=== PATIENT | male | born 1990 | race Caucasian/White ===

== ENCOUNTER 2020-06-15 16:48 | Emergency (ER) | payer MEDICAID, SELFPAY ==
[2020-06-15 17:00] VITALS: BP 116/68; PULSE 86; RESP 14; TEMP 37.2; O2SAT 98; BMI 19.3
--- NOTE | 2020-06-15 19:08 | ED.EYEPROB ---
HPI - Eye Problem General Chief complaint: Eye Problems Stated complaint: eye infection Time Seen by Provider: 06/15/20 19:08 Source: patient Mode of arrival: ambulatory Limitations: no limitations History of Present Illness HPI Narrative: left upper eyelid swelling for past 2 days. She has Onset (ago): day(s) Onset description: gradual Duration: constant Location: left eye ( upper lid) Severity: mild Treatments Prior to Arrival: none Related Data Previous Rx's Medication Instructions Recorded doxycycline monohydrate 100 mg PO BID 7 Days #14 cap 06/15/20 erythromycin 0.5 inch OPHTHALMIC (EYE) Q8H #3.5 06/15/20 g Allergies Allergy/AdvReac Type Severity Reaction Status Date / Time amoxicillin [AMOXICILLIN] Allergy Intermediate HIVES Unverified 04/14/20 16:53 clindamycin [CLINDAMYCIN] Allergy Mild RASH Unverified 04/14/20 16:53 Penicillins [PENICILLINS] Allergy Unknown HIVES Unverified 04/14/20 16:53 shellfish derived Allergy Hives Verified 06/15/20 18:21 shrimp Allergy Hives Verified 06/15/20 18:21 Review of Systems Review of Systems: Constitutional: No Weight loss, No Fever, No Chills, No Night Sweats, No Fatigue, No Malaise ENT/Mouth: No Hearing loss, No Ear Pain, No Nasal Congestion, No Sinus Pain, No Hoarseness, No sore throat, No Rhinorrhea, No Swallowing Difficulty Eyes: No Eye Pain, + left upper Swelling, No Redness, No Foreign Body, No Discharge, No Vision Changes Cardiovascular: No Chest Pain, No SOB, No Dyspnea on Exertion, No Orthopnea, No Edema, No Palpitations Respiratory: No Cough, No Sputum, No Wheezing, No Smoke Exposure, No Dyspnea Gastrointestinal: No Nausea, No Vomiting, No Diarrhea, No Constipation, No abdominal Pain, No Hematochezia, No Melena Musculoskeletal: No joint pain, No Myalgias, No Joint Swelling Skin: No Skin Lesions, No rash Neuro: No Weakness, No Numbness, No Paresthesias, No Loss of Consciousness, No Dizziness, No Headache Psych: No Anxiety/Panic, No Depression Heme/Lymph: No Bruising, No Bleeding,No Lymphadenopathy Endocrine: No Polyuria, No Polydipsia, No Temperature Intolerance Yes all other systems are reviewed and are negative [facility] Past Medical History Attestation statement: The following information was validated with the patient. Medical History (Updated 06/15/20 @ 19:11 by Eric Griffith NP) No known health problems Social History Social History Alcohol intake: never Smoking Status: Current every day smoker Substance Use Type: Marijuana Advance Directives: No Advance Directives Information Provided: Yes Physical Exam Vital Signs: Vital Signs: Last Vital Signs Temp 99 F 06/15/20 17:00 Pulse 86 06/15/20 17:00 Resp 14 06/15/20 17:00 BP 116/68 06/15/20 17:00 Pulse Ox 98 06/15/20 17:00 Body Mass Index 19.3 Reviewed Const: General: cooperative, healthy appearing, comfortable, no acute distress, well developed, alert and awake HENMT: Head: Yes normal to inspection Ears: hearing grossly normal bilaterally Eyes: General: appearance normal, both eyes and all related structures Visual [place]: normal visual gamboa by confrontation Eyelids: Yes eyelid abnormality ( left upper lid with small external stye. Slight erythema) Conjunctivae: conjunctivae normal Sclerae: sclerae normal Corneas: corneas normal Chest: Chest palpation & inspection: normal inspection of the chest and normal palpation of entire chest wall Resp: Effort & Inspection: normal respiratory effort, no audible wheezes, no cough and no respiratory distress Cardio: Jugular venous distension: no JVD Palpation: normal PMI Rate: regular rate Heart sounds: S1 normal heart sound present and S2 normal heart sound present Skin: General skin exam: no rashes or lesions noted, elasticity normal and turgor normal Wounds: no wounds Nails: normal Neuro: General: normal sensation to monofilament Psych: Appearance: grossly normal and well kempt Discharge Plan Discharge Clinical Impression: External hordeolum Patient Disposition: Home, Self-Care Instructions: Steve (ED) Prescriptions: New erythromycin 5 mg/gram (0.5 %) ointment 0.5 inch ophthalmic (eye) Q8H Qty: 3.5 RF: 1 doxycycline monohydrate 100 mg capsule 100 mg PO BID 7 Days Qty: 14 RF: 0 Referrals: Physician,Unknown [Primary Care Provider] - 3 days
== END 2020-06-15 19:50 | disposition home or self-care (01) ==
PROVIDERS: Emergency Provider Emergency Medicine
DX: H00.019 Hordeolum externum unspecified eye, unspecified eyelid (principal); F17.200 Nicotine dependence, unspecified, uncomplicated; Z71.6 Tobacco abuse counseling; F12.90 Cannabis use, unspecified, uncomplicated; Z79.899 Other long term (current) drug therapy
CPT/HCPCS: 99283

== ENCOUNTER 2021-05-24 14:12 | Outpatient (REF) | payer MEDICAID, SELFPAY ==
[2021-05-24 14:51] LABS: Basophils Percent Auto 0.6 % (0-2); Eosinophils Percent Auto 1.2 % (0-4); Hematocrit 34.8 % (42-52); Hemoglobin 11.7 g/dl (14.0-18.0); Imm Gran Abs Auto 0.02 X10*3/uL (0.00-0.03); Imm Gran Pct Auto 1.2 % (0.0-0.4); Lymphocytes Absolute Auto 0.5 X10*3/uL (1.2-4.9); Lymphocytes Percent Auto 29.2 % (20-40); MANUAL DIFF FLAG SCAN; Mean Corpuscular HGB Conc 33.6 g/dl (31.0-36.0); Mean Corpuscular Volume 92.1 fL (80-98); Mean Platelet Volume 12.1 fL (9.4-12.4); Monocytes Absolute Auto 0.2 X10*3/uL (0.1-1.2); Monocytes Percent Auto 12.3 % (2-11); Neutrophils Percent Auto 55.5 % (45-73); Red Blood Count 3.78 X10*6/uL (4.60-5.80); Red Cell Distribution Width 13.2 % (11.0-16.0); SCAN SMEAR FLAG 1
[2021-05-24 15:04] LABS: Platelet Count 60 X10*3/uL (160-400); White Blood Count 1.7 X10*3/uL (4.8-10.8)
[2021-05-24 15:15] LABS: Alanine Aminotransferase 10 U/L (0-40); Albumin Level 3.8 g/dL (3.5-5.0); Alkaline Phosphatase 39 U/L (39-117); Anion Gap 10 (12-20); Aspartate Amino Transferase 25 U/L (5-37); Bilirubin Total 0.6 mg/dL (0.0-1.0); Blood Urea Nitrogen 11 mg/dL (9-16); Calcium 8.8 mg/dL (8.4-10.2); Carbon Dioxide 28 mmol/L (22-29); Chloride 105 mmol/L (96-108); Cholesterol 136 mg/dL; Estimated Glomerular Filt Rate > 60; Glucose Random 85 mg/dL (60-115); HDL Cholesterol 27 mg/dL; LDL Cholesterol Calculated 87 mg/dl; Potassium 4.1 mmol/L (3.3-5.1); Sodium 139 mmol/L (135-145); Total Protein 8.1 g/dL (6.5-8.0); Triglycerides 111 mg/dL
[2021-05-24 15:21] LABS: SLIDE REVIEW VERIFIED
== END 2021-05-24 14:13 | disposition home or self-care (01) ==
LOC: HO.LAB 14:12
PROVIDERS: PCP Internal Medicine; Visit Provider Internal Medicine
DX: Z00.00 Encounter for general adult medical examination without abnormal findings (principal); B35.1 Tinea unguium; F21 Schizotypal disorder; M79.672 Pain in left foot; Z72.0 Tobacco use
CPT/HCPCS: 36415; 80053; 80061; 85025

== ENCOUNTER 2021-12-29 15:53 | Emergency (ER) | payer MEDICAID, SELFPAY ==
--- NOTE | ~2021-12-29 | XR_ITS ---
EXAMINATION: XR ANKLE, LEFT CLINICAL INFORMATION: Left ankle pain and swelling. COMPARISON: None TECHNIQUE: AP, lateral, and mortise views of the left ankle. An indicator arrow points to the lateral malleolus. FINDINGS: The bones and soft tissues are normal. No fracture. Alignment is anatomic. Joint spaces are maintained. No joint effusion. XR/XR ankle LT min 3V IMPRESSION: Unremarkable left ankle.
[2021-12-29 16:06] VITALS: BP 109/74; PULSE 93; RESP 16; O2SAT 98; BMI 16.1
[2021-12-29 16:30] LABS: COVID-19 Test Positive (Negative); IDNOW Serial# 55D5AD1C
--- NOTE | 2021-12-29 17:18 | ED.GENADULT ---
HPI - General Adult General Chief complaint: Extremity Injury, Lower Stated complaint: L leg pain Time Seen by Provider: 12/29/21 17:18 Source: patient Mode of arrival: ambulatory Limitations: no limitations History of Present Illness HPI narrative: 31 y/o male presents to the ER for evaluation of acute on chronic left hip and left ankle pain. He reports for the last few days his left ankle has been swollen with difficultly ambulating and causing him to have more pain in the hip. He cannot recall any injury or trauma. He reports a history of vascular calcifications and is not able to see the vascular team. No color changes of the extremity, weakness, tingling, or claudication. He also reports generalized fatigue, headache and body aches for the last couple of days as well. He is requesting a COVID test. MD complaint: left ankle pain Onset (ago): day(s) Location: left and lower extremity Radiation: non-radiation Severity: moderate Quality: aching Pain Consistency: intermittent Relieving factors: immobilization and rest Exacerbating factors: movement Associated symptoms: headaches, loss of appetite, malaise and weakness Treatments prior to arrival: none Related Data Previous Rx's Medication Instructions Recorded doxycycline monohydrate 100 mg 100 mg PO BID 7 Days #14 cap 06/15/20 capsule erythromycin 5 mg/gram (0.5 %) eye 0.5 inch OPHTHALMIC (EYE) Q8H #3.5 06/15/20 ointment g naproxen 500 mg tablet 500 mg PO BID PRN #20 tab 12/29/21 Allergies Allergy/AdvReac Type Severity Reaction Status Date / Time amoxicillin [AMOXICILLIN] Allergy Intermediate HIVES Unverified 04/14/20 16:53 clindamycin [CLINDAMYCIN] Allergy Mild RASH Unverified 04/14/20 16:53 Penicillins [PENICILLINS] Allergy Unknown HIVES Unverified 04/14/20 16:53 shellfish derived Allergy Hives Verified 06/15/20 18:21 shrimp Allergy Hives Verified 06/15/20 18:21 Review of Systems Review of Systems: Constitutional: No Fever, + Chills ENT/Mouth: No sore throat, No Rhinorrhea, No Swallowing Difficulty Cardiovascular: No Chest Pain, No SOB, No Orthopnea, No Edema Respiratory: No Cough, No Sputum, No Wheezing, No dyspnea Gastrointestinal: No Nausea, No Vomiting, No Diarrhea, No abdominal Pain Genitourinary: No Dysuria, No Urinary Frequency, No Hematuria Musculoskeletal: + joint pain, + Myalgias Skin: No Skin Lesions, No rash Neuro: + Weakness, No Numbness, No Dizziness, + Headache Psych: No Anxiety/Panic, No Depression Heme/Lymph: No Bruising, No Lymphadenopathy [facility] Past Medical History Medical History (Updated 12/29/21 @ 18:11 by CECILIA Lewis) No known health problems Social History Social History Alcohol intake: never Substance Use Type: Marijuana Advance Directives: No Advance Directives Information Provided: No Physical Exam ED Vital Signs: Vital Signs - 24 hr 12/29/21 16:06 Pulse Rate 93 Respiratory Rate 16 Blood Pressure 109/74 Pulse Oximetry 98 BMI result Body Mass Index 16.1 Appearance: Alert. Oriented X3. No acute distress. HEENT: normal inspection CVS: Normal heart rate and rhythm. Pulses normal. Respiratory: No respiratory distress. Lungs CTAB Skin: Skin warm and dry. Normal skin color. Normal skin turgor. No rashes. Extremities: left lateral ankle with mild swelling and ecchymosis distal to the lateral malleolus. foot is warm and well perfused with 2+ DP and PD pulses. normal ROM of the ankle with pain upon plantarflexsion. normal ROM and palpation of the left hip Neuro: Oriented X 3. Grossly normal, nonfocal. Course Course Course Narrative: 31 y/o male presenting with left ankle pain and swelling, denies trauma but ecchymosis noted. XR pending - he feels like something is broken. Also asked for COVID test which has been sent. VS are normal and lungs are clear. Reevaluation(s) Reevaluation #1: COVID positive. Only had 1 vaccine so far. Discussed symptomatic care and return precautions Reevaluation #2: XR normal. will treat for ankle sprain. stable for d/c. Medical Decision Making Lab Data Labs: Lab Results 12/29/21 Range/Units 16:12 COVID-19 (LUCIO) Positive A (Negative) COVID-19 Clin Com See Note Critical Care Time Critical Care Time Critical Care Time: No Discharge Plan Discharge Clinical Impression: COVID-19, Ankle sprain and strain Patient Disposition: Home, Self-Care Instructions: Covid-19 Viral Syndrome and Novel Coronavirus (ED) Hey/Ath, Ankle Sprain (DC) Additional Instructions: Your ankle x-ray today was normal. Rest your ankle and elevate your foot when possible. Recommend RANI wrap for support and compression. Use ice several times per day for the next 48 hours. You may bear weight as tolerated. If pain is too severe, use crutches until better. Take Motrin and/or Tylenol as needed for pain. You were found to be COVID-19 POSITIVE today. Your exam and oxygen levels were normal. Rest. Drink plenty of fluids. Do not go out in public for the next 10 days. Take over the counter cold/flu medications as needed for your symptoms. Take Tylenol and/or Motrin as needed for fevers and body aches. If you shortness of breath worsens , if you develop difficulty breathing or any other concerning symptom come back to the ER for further evaluation. Prescriptions: New naproxen 500 mg tablet 500 mg PO BID PRN (Reason: pain) Qty: 20 0RF No Action erythromycin 5 mg/gram (0.5 %) ointment 0.5 inch ophthalmic (eye) Q8H Qty: 3.5 1RF doxycycline monohydrate 100 mg capsule 100 mg PO BID 7 Days Qty: 14 0RF
== END 2021-12-29 18:15 | disposition home or self-care (01) ==
PROVIDERS: Emergency Provider Internal Medicine; PCP Internal Medicine
DX: U07.1 COVID-19 (principal); S93.402A Sprain of unspecified ligament of left ankle, initial encounter; S96.912A Strain of unspecified muscle and tendon at ankle and foot level, left foot, initial encounter; X58.XXXA Exposure to other specified factors, initial encounter; Y93.9 Activity, unspecified; Y92.9 Unspecified place or not applicable; Y99.9 Unspecified external cause status
CPT/HCPCS: 73610; 87635; 99283

== ENCOUNTER 2022-01-13 01:45 | Emergency (ER) | payer MEDICAID, SELFPAY ==
--- NOTE | ~2022-01-13 | XR_ITS ---
EXAMINATION: XR TIBIA AND FIBULA, RIGHT CLINICAL INFORMATION: Flank pain COMPARISON: None TECHNIQUE: AP and lateral views of the right tibia and fibula were obtained. FINDINGS: The bones and soft tissues are normal. No fracture. No osseous lesions. XR/XR tibia fibula RT 2V IMPRESSION: Normal right tibia and fibula.
[2022-01-13 01:52] VITALS: BP 114/79; PULSE 88; RESP 18; TEMP 37.4; O2SAT 99; BMI 16.1
[2022-01-13 05:08] VITALS: BP 128/92; PULSE 84; RESP 15; TEMP 37.3; O2SAT 100
[2022-01-13 06:26] VITALS: BP 130/91; PULSE 78; RESP 18; TEMP 37.2; O2SAT 100
--- NOTE | 2022-01-13 06:27 | ED_ITS ---
HPI - Extremity Problem General Chief complaint: Extremity Problem Stated complaint: R Leg pain Time Seen by Provider: 01/13/22 02:17 Source: patient Mode of arrival: EMS Limitations: no limitations History of Present Illness HPI Narrative: 31-year-old male who presents emergency department for evaluation of right lower extremity pain. The patient states that he developed pain in his right lower extremity yesterday that got progressively worse. He points to the proximal medial tibial area when asked to localize the pain. He states that the pain is a constant, burning sensation and his skin feels warm to the touch and it is painful when he presses on area. The pain is moderate to severe in intensity. He states he has had similar pain in the past secondary to his staph infection is required antibiotics in the past. He states that he has had subjective and chills but did not take his temperature. He states that he is feeling weak. He denied rhinorrhea, sore throat, chest pain, cough, shortness of breath, dyspnea on exertion, abdominal pain. He has been able to eat and drink without any difficulty. He denies any injury to his lower extremities. MD Complaint: extremity pain Onset (ago): day(s) (1) Pain Consistency: constant Location: right Severity scale (1-10): 6 Quality: burning Radiation: none Relieving factors: nothing Exacerbating factors: palpation Associated symptoms: fever and other (Chills, weakness, fatigue) Related Data Previous Rx's Medication Instructions Recorded doxycycline monohydrate 100 mg 100 mg PO BID 7 days #14 caps 06/15/20 capsule erythromycin 5 mg/gram (0.5 %) eye 0.5 inch ophthalmic (eye) Q8H #3.5 06/15/20 ointment grams naproxen 500 mg tablet 500 mg PO BID PRN pain #20 tabs 12/29/21 doxycycline hyclate 100 mg tablet 100 mg PO Q12H 7 days #14 tabs 01/13/22 Allergies Allergy/AdvReac Type Severity Reaction Status Date / Time amoxicillin [AMOXICILLIN] Allergy Intermediate HIVES Verified 01/13/22 01:51 clindamycin [CLINDAMYCIN] Allergy Mild RASH Verified 01/13/22 01:52 Penicillins [PENICILLINS] Allergy Unknown HIVES Verified 01/13/22 01:52 shellfish derived Allergy Hives Verified 06/15/20 18:21 shrimp Allergy Hives Verified 06/15/20 18:21 Review of Systems Review of Systems: Yes all other systems are reviewed and are negative [facility] Past Medical History [facility] Narrative: Past medical history: Staphylococcal cellulitis 3 years prior, right lower extremity. COVID-19 infection. Past surgical history: None. Social history: Patient smokes 1 pack of cigarettes per day times 15 years. Patient denies alcohol use. He states he smokes marijuana daily. Medical History (Updated 01/13/22 @ 07:43 by Adams Golden MD) No known health problems Social History Social History Alcohol intake: never Substance Use Type: Marijuana Advance Directives: No Physical Exam Vital Signs: Vital Signs: Last Vital Signs Temp 99 F 01/13/22 06:26 Pulse 78 01/13/22 06:26 Resp 18 01/13/22 06:26 BP 130/91 H 01/13/22 06:26 Pulse Ox 100 01/13/22 06:26 O2 Del Method 01/13/22 06:26 BMI result Body Mass Index 16.1 Const: General: cooperative and no acute distress Orientation/consciousness: oriented to person and oriented to place Limitations: no limitations HEENT: Head: Yes normal to inspection, Yes normocephalic and Yes atraumatic Ears: external ears normal General nose exam: Normal external nose present Face and sinus: Yes normal facial exam Mouth: Normal oral and palatal mucosa present Throat: Yes posterior oropharynx normal Eyes: General: appearance normal, both eyes and all related structures Pupils: Equal, round and reactive pupils present Neck: Neck: Yes normal visual inspection, Yes no lymphadenopathy, Yes trachea midline and Yes supple Chest: Chest palpation & inspection: normal inspection of the chest and normal palpation of entire chest wall Resp: Effort & Inspection: normal respiratory effort and able to speak in complete sentences Auscultation: clear to auscultation bilaterally Cardio: Rate: regular rate Rhythm: regular rhythm Heart sounds: S1 normal heart sound present, S2 normal heart sound present and no murmurs GI: Inspection: Yes normal to inspection Palpation (GI): Soft to palpation, nontender and no guarding Auscultation: normal bowel sounds : General: Yes no CVA tenderness Back/Spine/Pelvis: Back: no CVA tenderness Skin: General skin exam: no rashes or lesions noted Neuro: General: oriented to person and oriented to place Cranial nerves: Yes CN's II-XII intact bilaterally and Yes Equal, round and reactive pupils present Cognition (Neuro): normal cognition Motor exam (neuro): 5/5 motor strength present throughout Extrem: Other: The patient does have tenderness palpation of his medial proximal tibial area there is some slight increased warmth and erythema in this area, there is no flocculence, there is no skin breakdown. Psych: Appearance: grossly normal Speech and movement: Normal speech and movement present Affect: normal affect Attitude: cooperative Thought process: Normal thought process present Thought content: Normal thought content present Course Course Course Narrative: 31-year-old male who presents emergency department for evaluation of right lower extremity pain x1 day. The patient has had similar pain in the past secondary to his Staph aureus infection. Patient's vital signs were unremarkable. The patient did have some erythema, increased warmth and tenderness with palpation of the right proximal tibial area. The patient did have an x-ray of his right lower extremity which was unremarkable. Patient will be treated for cellulitis with doxycycline 100 mg twice a day. He was given his 1st dose here in the emergency department. He was also given ibuprofen 1st pain. He states he has ibuprofen at home. He was given printed and verbal instructions and discharged home Discharge Plan Discharge Clinical Impression: Cellulitis of right lower limb Patient Disposition: Home, Self-Care Instructions: Cellulitis (ED) Additional Instructions: At this time, I believe that you may have another staph or strep infection of your right lower extremity. Cellulitis Discharge Instructions You have an infection of your skin. This is called cellulitis. This is usually caused by bacteria on your skin that gets under your skin and then causes the infection Take doxycycline 100 mg pills, 1 pill 2 times a day for 1 week. This is an antibiotic that should help your body fight off the infection. Keep the area of cellulitis elevated to help reduce swelling in the infected area and this helps with the healing process Also apply a heating pad on low or a warm compress for 15 minutes, 4-6 times a day. This will increase the blood flow to the area and will bring white blood cells to the area which will help your body fight off the infection. Take Motrin(ibuprofen) 200mg pills, 3 pills every 6 hours as needed for pain. Also take Tylenol( acetaminophen) 325 mg pills, 2 pills every 4 hours as needed for pain. Sign of worsening infection include: Fever, chills, weakness, increased pain, increased redness, increased swelling or red streaks going away from the area of infection. If you develop any of these symptoms or any other symptoms that are concerning to you, see your doctor immediately or return to the Emergency Department. Follow up with your doctor in 3 days for a recheck Please read the other printed instructions that we printed for you. Prescriptions: New doxycycline hyclate 100 mg tablet 100 mg PO Q12H 7 Days Qty: 14 0RF No Action erythromycin 5 mg/gram (0.5 %) ointment 0.5 inch ophthalmic (eye) Q8H Qty: 3.5 1RF doxycycline monohydrate 100 mg capsule 100 mg PO BID 7 Days Qty: 14 0RF naproxen 500 mg tablet 500 mg PO BID PRN (Reason: pain) Qty: 20 0RF
[2022-01-13] MEDS: Ibuprofen 600 MG TABLET PO (06:39)
[2022-01-13 07:52] VITALS: BP 130/89; PULSE 71; RESP 14; O2SAT 99
== END 2022-01-13 07:55 | disposition home or self-care (01) ==
PROVIDERS: Emergency Provider Emergency Medicine Emergency Medical Services; PCP Internal Medicine
DX: L03.115 Cellulitis of right lower limb (principal); M79.604 Pain in right leg; Z79.899 Other long term (current) drug therapy
CPT/HCPCS: 73590; 99283

== ENCOUNTER 2022-04-09 19:52 | Inpatient (IN) | payer OTHER, MEDICAID, SELFPAY ==
--- NOTE | ~2022-04-09 | XR_ITS ---
EXAMINATION: XR CHEST CLINICAL INFORMATION: Cough and fever COMPARISON: None TECHNIQUE: 2 views of the chest were obtained. FINDINGS: No significant abnormality is noted involving the heart, lungs, mediastinum, bony thorax or soft tissues. XR/XR chest 2V IMPRESSION: No acute intrathoracic disease.
--- NOTE | ~2022-04-09 | XR_ITS ---
EXAMINATION: XR CHEST CLINICAL INFORMATION: Fever, rule out pneumonia. COMPARISON: 04/09/2022 chest radiographs. TECHNIQUE: 2 views of the chest were obtained. FINDINGS: Subtle asymmetric hazy opacification is seen in the right upper lobe extending to the right apex. The left lung is clear. There are no pleural effusions. The heart and mediastinal structures are unremarkable. XR/XR chest 2V IMPRESSION: Subtle asymmetric hazy opacification the right upper lobe, a component which may be projectional however, appears mildly more pronounced compared the previous study and underlying infiltrates cannot be excluded.
[2022-04-09 19:58] VITALS: BP 113/80; PULSE 110; RESP 18; TEMP 38.2; O2SAT 98; BMI 17.7
[2022-04-09 20:13] LABS: Glucose, Whole Blood 114 mg/dL (60-115)
[2022-04-09 20:16] LABS: COVID-19 Test Negative (Negative); IDNOW Serial# 16C4AD1C
--- NOTE | 2022-04-09 20:33 | ED.PSYCH ---
HPI - Psych General Chief Complaint: Psychiatric Symptoms <Dilip Lopez MD - Last Filed: 04/09/22 21:02> Stated Complaint: SEC 12,CALM/COOP PER EMS <Dilip Lopez MD - Last Filed: 04/09/22 21:02> Time Seen by Provider: 04/09/22 20:15 <Dilip Lopez MD - Last Filed: 04/09/22 21:02> Source: patient, RN notes reviewed and old records reviewed <Dilip Lopez MD - Last Filed: 04/09/22 21:02> Mode of arrival: EMS <Dilip Lopez MD - Last Filed: 04/09/22 21:02> Limitations: other <Dilip Lopez MD - Last Filed: 04/09/22 21:02> History of Present Illness HPI Narrative: Patient with apparent long-term history of paranoid and psychosis who presents stating people are trying to poison his food. Apparent suicidal ideation as well. Patient is very rambling in his history. He does complain of cough and recent fevers. Symptoms for the past few days. <Dilip Lopez MD - Last Filed: 04/09/22 21:02> Related Data Allergies/Adverse Reactions: Allergies Allergy/AdvReac Type Severity Reaction Status Date / Time amoxicillin [AMOXICILLIN] Allergy Intermediate HIVES Verified 01/13/22 01:51 clindamycin [CLINDAMYCIN] Allergy Mild RASH Verified 01/13/22 01:52 Penicillins [PENICILLINS] Allergy Unknown HIVES Verified 01/13/22 01:52 shellfish derived Allergy Hives Verified 06/15/20 18:21 shrimp Allergy Hives Verified 06/15/20 18:21 <Dilip Lopez MD - Last Filed: 04/09/22 21:02> Review of Systems Constitutional: Comments: Fevers and chills for the last few days <Dilip Lopez MD - Last Filed: 04/09/22 21:02> ENT: Comments: No neck pain <Dilip Lopez MD - Last Filed: 04/09/22 21:02> Cardiovascular: Comments: No chest pain <Dilip Lopez MD - Last Filed: 04/09/22 21:02> Respiratory: Comments: Cough but no shortness of breath <Dilip Lopez MD - Last Filed: 04/09/22 21:02> Gastrointestinal: Comments: No nausea vomiting <Dilip Lopez MD - Last Filed: 04/09/22 21:02> Neurologic: Comments: No headache or neck pain <Dilip Lopez MD - Last Filed: 04/09/22 21:02> [facility] Past Medical History Medical History: Medical History (Updated 04/10/22 @ 00:10 by Ric Wen MD) No known health problems <Dilip Lopez MD - Last Filed: 04/09/22 21:02> Social History Social History: Social History Alcohol intake: never Substance Use Type: Marijuana Advance Directives: No Advance Directives Information Provided: No <Dilip Lopez MD - Last Filed: 04/09/22 21:02> Physical Exam Vital Signs: Vital Signs: Last Vital Signs Temp 98.6 F 04/09/22 20:54 Pulse 110 H 04/09/22 19:58 Resp 18 04/09/22 19:58 BP 113/80 04/09/22 19:58 Pulse Ox 98 04/09/22 19:58 O2 Del Method 04/09/22 19:58 BMI result Body Mass Index 15.5 <Dilip Lopez MD - Last Filed: 04/09/22 21:02> Vital Signs: Last Vital Signs Temp 98.6 F 04/09/22 20:54 Pulse 110 H 04/09/22 19:58 Resp 18 04/09/22 19:58 BP 113/80 04/09/22 19:58 Pulse Ox 98 04/09/22 19:58 O2 Del Method 04/09/22 19:58 BMI result Body Mass Index 15.5 <Ric Wen MD - Last Filed: 04/10/22 07:20> Const: Other: Awake and alert. Appears preoccupied. Oriented. Appears cachectic and malnourished <Dilip Lopez MD - Last Filed: 04/09/22 21:02> HEENT: Other: No meningismus <Dilip Lopez MD - Last Filed: 04/09/22 21:02> Neck: Other: Full range of motion <Dilip Lopez MD - Last Filed: 04/09/22 21:02> Resp: Other: Good air entry bilaterally. Mild rhonchi <Dilip Lopez MD - Last Filed: 04/09/22 21:02> Cardio: Other: Regular rate and rhythm without murmurs rubs or gallops <Dilip Lopez MD - Last Filed: 04/09/22 21:02> GI: Other: Soft nontender <Dilip Lopez MD - Last Filed: 04/09/22 21:02> Skin: Other: Warm pink and dry without obvious rashes. Feet without cellulitis <Dilip Lopez MD - Last Filed: 04/09/22 21:02> Neuro: Other: Nonfocal <Dilip Lopez MD - Last Filed: 04/09/22 21:02> Psych: Other: Makes eye contact but has paranoid delusions. <Dilip Lopez MD - Last Filed: 04/09/22 21:02> Course Course Course Narrative: Paranoia Probable schizophrenia Cough with fever. 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 Will order chest x-ray and lab work. Review of old labs shows baseline white count 1.7. His possibly immunocompromised. Rule out pneumonia Rule out COVID-19 COVID-19 test is negative 21:02. Repeat temperature without intervention shows it is now normal. His white count today is 2.1 with a baseline of 1.7. <Dilip Lopez MD - Last Filed: 04/09/22 21:02> Reevaluation(s) Reevaluation #1: Start of physician observation: no evidence of infection, medically cleared, will place patient in physician observation as he will need to be reevaluated as we try and find the patient placement <Ric Wen MD - Last Filed: 04/10/22 07:20> Time: 00:09 <Ric Wen MD - Last Filed: 04/10/22 07:20> MDM - Psych Lab Data Result diagrams: : 04/09/22 20:45 04/09/22 20:45 <Dilip Lopez MD - Last Filed: 04/09/22 21:02> Labs: Lab Results 04/09/22 04/09/22 04/09/22 Range/Units 20:05 20:09 20:45 WBC 2.1 L (4.8-10.8) X10*3/uL RBC 3.35 L (4.60-5.80) X10*6/uL Hgb 9.9 L (14.0-18.0) g/dl Hct 30.3 L (42.0-52.0) % MCV 90.4 (80.0-98.0) fL MCH 29.6 (27.0-33.0) pg MCHC 32.7 (31.0-36.0) g/dl RDW 14.2 (11.0-16.0) % Plt Count 123 L (160-400) X10*3/uL MPV 12.7 H (9.4-12.4) fL Immature Gran % (Auto) 1.9 H (0.0-0.4) % Neut % (Auto) 58.7 (45-73) % Lymph % (Auto) 11.5 L (20-40) % Person % (Auto) 9.6 (2-11) % Eos % (Auto) 17.3 H (0-4) % Baso % (Auto) 1.0 (0-2) % Lymph # (Auto) 0.2 L (1.2-4.9) X10*3/uL Person # (Auto) 0.2 (0.1-1.2) X10*3/uL Eos # (Auto) 0.4 (0.0-0.4) X10*3/uL Baso # (Auto) 0.0 (0.0-0.2) X10*3/uL Abs Immat Gran (auto) 0.04 H (0.00-0.03) X10*3/uL Absolute Neuts (auto) 1.2 L (2.0-8.3) x10*3/uL Absolute Nucleated RBC 0.000 (0.0-0.012) X10*3/uL Nucleated RBC % (auto) 0.0 (0.0-0.2) /100WBC Smear Tech's Comments VERIFIED Sodium (135-145) mmol/L Potassium (3.3-5.1) mmol/L Chloride (96-108) mmol/L Carbon Dioxide (22-29) mmol/L Anion Gap (12-20) BUN (9-16) mg/dL Creatinine (0.5-1.4) mg/dL Estim Creat Clear Calc Estimated GFR POC Glucose 114 (60-115) mg/dL Random Glucose (60-115) mg/dL Calcium (8.4-10.2) mg/dL Total Bilirubin (0.0-1.0) mg/dL AST (5-37) U/L ALT (0-40) U/L Alkaline Phosphatase (39-117) U/L Total Protein (6.5-8.0) g/dL Albumin (3.5-5.0) g/dL Urine Opiates Screen (Not Detect) Urine Fentanyl Screen (Not Detect) Ur Barbiturates Screen (Not Detect) Ur Phencyclidine Scrn (Not Detect) Ur Amphetamines Screen (Not Detect) U Benzodiazepines Scrn (Not Detect) Urine Cocaine Screen (Not Detect) U Marijuana (THC) Screen (Not Detect) COVID-19 (LUCIO) Negative (Negative) COVID-19 Clin Com See Note 04/09/22 04/10/22 Range/Units 20:45 02:11 WBC (4.8-10.8) X10*3/uL RBC (4.60-5.80) X10*6/uL Hgb (14.0-18.0) g/dl Hct (42.0-52.0) % MCV (80.0-98.0) fL MCH (27.0-33.0) pg MCHC (31.0-36.0) g/dl RDW (11.0-16.0) % Plt Count (160-400) X10*3/uL MPV (9.4-12.4) fL Immature Gran % (Auto) (0.0-0.4) % Neut % (Auto) (45-73) % Lymph % (Auto) (20-40) % Person % (Auto) (2-11) % Eos % (Auto) (0-4) % Baso % (Auto) (0-2) % Lymph # (Auto) (1.2-4.9) X10*3/uL Person # (Auto) (0.1-1.2) X10*3/uL Eos # (Auto) (0.0-0.4) X10*3/uL Baso # (Auto) (0.0-0.2) X10*3/uL Abs Immat Gran (auto) (0.00-0.03) X10*3/uL Absolute Neuts (auto) (2.0-8.3) x10*3/uL Absolute Nucleated RBC (0.0-0.012) X10*3/uL Nucleated RBC % (auto) (0.0-0.2) /100WBC Smear Tech's Comments Sodium 143 (135-145) mmol/L Potassium 3.7 (3.3-5.1) mmol/L Chloride 109 H (96-108) mmol/L Carbon Dioxide 25 (22-29) mmol/L Anion Gap 13 (12-20) BUN 12 (9-16) mg/dL Creatinine 0.77 (0.5-1.4) mg/dL Estim Creat Clear Calc 98.9 Estimated GFR > 60 POC Glucose (60-115) mg/dL Random Glucose 95 (60-115) mg/dL Calcium 7.8 L D (8.4-10.2) mg/dL Total Bilirubin 0.3 (0.0-1.0) mg/dL AST 45 H D (5-37) U/L ALT 14 (0-40) U/L Alkaline Phosphatase 59 D (39-117) U/L Total Protein 6.9 (6.5-8.0) g/dL Albumin 2.7 L D (3.5-5.0) g/dL Urine Opiates Screen Not Detected (Not Detect) Urine Fentanyl Screen Not Detected (Not Detect) Ur Barbiturates Screen Not Detected (Not Detect) Ur Phencyclidine Scrn Not Detected (Not Detect) Ur Amphetamines Screen Not Detected (Not Detect) U Benzodiazepines Scrn Not Detected (Not Detect) Urine Cocaine Screen Not Detected (Not Detect) U Marijuana (THC) Screen POSITIVE H (Not Detect) COVID-19 (LUCIO) (Negative) COVID-19 Clin Com <Dilip Lopez MD - Last Filed: 04/09/22 21:02> Lab Results 04/09/22 04/09/22 04/09/22 Range/Units 20:05 20:09 20:45 WBC 2.1 L (4.8-10.8) X10*3/uL RBC 3.35 L (4.60-5.80) X10*6/uL Hgb 9.9 L (14.0-18.0) g/dl Hct 30.3 L (42.0-52.0) % MCV 90.4 (80.0-98.0) fL MCH 29.6 (27.0-33.0) pg MCHC 32.7 (31.0-36.0) g/dl RDW 14.2 (11.0-16.0) % Plt Count 123 L (160-400) X10*3/uL MPV 12.7 H (9.4-12.4) fL Immature Gran % (Auto) 1.9 H (0.0-0.4) % Neut % (Auto) 58.7 (45-73) % Lymph % (Auto) 11.5 L (20-40) % Person % (Auto) 9.6 (2-11) % Eos % (Auto) 17.3 H (0-4) % Baso % (Auto) 1.0 (0-2) % Lymph # (Auto) 0.2 L (1.2-4.9) X10*3/uL Person # (Auto) 0.2 (0.1-1.2) X10*3/uL Eos # (Auto) 0.4 (0.0-0.4) X10*3/uL Baso # (Auto) 0.0 (0.0-0.2) X10*3/uL Abs Immat Gran (auto) 0.04 H (0.00-0.03) X10*3/uL Absolute Neuts (auto) 1.2 L (2.0-8.3) x10*3/uL Absolute Nucleated RBC 0.000 (0.0-0.012) X10*3/uL Nucleated RBC % (auto) 0.0 (0.0-0.2) /100WBC Smear Tech's Comments VERIFIED Sodium (135-145) mmol/L Potassium (3.3-5.1) mmol/L Chloride (96-108) mmol/L Carbon Dioxide (22-29) mmol/L Anion Gap (12-20) BUN (9-16) mg/dL Creatinine (0.5-1.4) mg/dL Estim Creat Clear Calc Estimated GFR POC Glucose 114 (60-115) mg/dL Random Glucose (60-115) mg/dL Calcium (8.4-10.2) mg/dL Total Bilirubin (0.0-1.0) mg/dL AST (5-37) U/L ALT (0-40) U/L Alkaline Phosphatase (39-117) U/L Total Protein (6.5-8.0) g/dL Albumin (3.5-5.0) g/dL Urine Opiates Screen (Not Detect) Urine Fentanyl Screen (Not Detect) Ur Barbiturates Screen (Not Detect) Ur Phencyclidine Scrn (Not Detect) Ur Amphetamines Screen (Not Detect) U Benzodiazepines Scrn (Not Detect) Urine Cocaine Screen (Not Detect) U Marijuana (THC) Screen (Not Detect) COVID-19 (LUCIO) Negative (Negative) COVID-19 Clin Com See Note 04/09/22 04/10/22 Range/Units 20:45 02:11 WBC (4.8-10.8) X10*3/uL RBC (4.60-5.80) X10*6/uL Hgb (14.0-18.0) g/dl Hct (42.0-52.0) % MCV (80.0-98.0) fL MCH (27.0-33.0) pg MCHC (31.0-36.0) g/dl RDW (11.0-16.0) % Plt Count (160-400) X10*3/uL MPV (9.4-12.4) fL Immature Gran % (Auto) (0.0-0.4) % Neut % (Auto) (45-73) % Lymph % (Auto) (20-40) % Person % (Auto) (2-11) % Eos % (Auto) (0-4) % Baso % (Auto) (0-2) % Lymph # (Auto) (1.2-4.9) X10*3/uL Person # (Auto) (0.1-1.2) X10*3/uL Eos # (Auto) (0.0-0.4) X10*3/uL Baso # (Auto) (0.0-0.2) X10*3/uL Abs Immat Gran (auto) (0.00-0.03) X10*3/uL Absolute Neuts (auto) (2.0-8.3) x10*3/uL Absolute Nucleated RBC (0.0-0.012) X10*3/uL Nucleated RBC % (auto) (0.0-0.2) /100WBC Smear Tech's Comments Sodium 143 (135-145) mmol/L Potassium 3.7 (3.3-5.1) mmol/L Chloride 109 H (96-108) mmol/L Carbon Dioxide 25 (22-29) mmol/L Anion Gap 13 (12-20) BUN 12 (9-16) mg/dL Creatinine 0.77 (0.5-1.4) mg/dL Estim Creat Clear Calc 98.9 Estimated GFR > 60 POC Glucose (60-115) mg/dL Random Glucose 95 (60-115) mg/dL Calcium 7.8 L D (8.4-10.2) mg/dL Total Bilirubin 0.3 (0.0-1.0) mg/dL AST 45 H D (5-37) U/L ALT 14 (0-40) U/L Alkaline Phosphatase 59 D (39-117) U/L Total Protein 6.9 (6.5-8.0) g/dL Albumin 2.7 L D (3.5-5.0) g/dL Urine Opiates Screen Not Detected (Not Detect) Urine Fentanyl Screen Not Detected (Not Detect) Ur Barbiturates Screen Not Detected (Not Detect) Ur Phencyclidine Scrn Not Detected (Not Detect) Ur Amphetamines Screen Not Detected (Not Detect) U Benzodiazepines Scrn Not Detected (Not Detect) Urine Cocaine Screen Not Detected (Not Detect) U Marijuana (THC) Screen POSITIVE H (Not Detect) COVID-19 (LUCIO) (Negative) COVID-19 Clin Com <Ric Wen MD - Last Filed: 04/10/22 07:20> Imaging Data Chest x-ray: Radiologist's impression: FINDINGS: No significant abnormality is noted involving the heart, lungs, mediastinum, bony thorax or soft tissues. XR/XR chest 2V IMPRESSION: No acute intrathoracic disease. <Ric Wen MD - Last Filed: 04/10/22 07:20> Discharge Plan Discharge Clinical Impression: Chronic schizophrenia, Paranoia <Dilip Lopez MD - Last Filed: 04/09/22 21:02> Patient Disposition: Still a Patient <Dilip Lopez MD - Last Filed: 04/09/22 21:02>
[2022-04-09 20:54] VITALS: TEMP 37
[2022-04-09 20:57] LABS: Eosinophils Absolute Auto 0.4 X10*3/uL (0.0-0.4); Eosinophils Percent Auto 17.3 % (0-4); Hematocrit 30.3 % (42.0-52.0); Hemoglobin 9.9 g/dl (14.0-18.0); Imm Gran Abs Auto 0.04 X10*3/uL (0.00-0.03); Imm Gran Pct Auto 1.9 % (0.0-0.4); Lymphocytes Absolute Auto 0.2 X10*3/uL (1.2-4.9); Lymphocytes Percent Auto 11.5 % (20-40); MANUAL DIFF FLAG SCAN; Mean Corpuscular HGB Conc 32.7 g/dl (31.0-36.0); Mean Corpuscular Hemoglobin 29.6 pg (27.0-33.0); Mean Corpuscular Volume 90.4 fL (80.0-98.0); Mean Platelet Volume 12.7 fL (9.4-12.4); Monocytes Absolute Auto 0.2 X10*3/uL (0.1-1.2); Monocytes Percent Auto 9.6 % (2-11); Neutrophils Absolute Auto 1.2 x10*3/uL (2.0-8.3); Neutrophils Percent Auto 58.7 % (45-73); Platelet Count 123 X10*3/uL (160-400); Red Blood Count 3.35 X10*6/uL (4.60-5.80); Red Cell Distribution Width 14.2 % (11.0-16.0); SCAN SMEAR FLAG 1
[2022-04-09 20:58] LABS: White Blood Count 2.1 X10*3/uL (4.8-10.8)
[2022-04-09 21:14] LABS: Alanine Aminotransferase 14 U/L (0-40); Albumin Level 2.7 g/dL (3.5-5.0); Alkaline Phosphatase 59 U/L (39-117); Anion Gap 13 (12-20); Aspartate Amino Transferase 45 U/L (5-37); Bilirubin Total 0.3 mg/dL (0.0-1.0); Blood Urea Nitrogen 12 mg/dL (9-16); Calcium 7.8 mg/dL (8.4-10.2); Carbon Dioxide 25 mmol/L (22-29); Chloride 109 mmol/L (96-108); Creatinine Clr Calc Pharmacy 98.9; Estimated Glomerular Filt Rate > 60; Glucose Random 95 mg/dL (60-115); Potassium 3.7 mmol/L (3.3-5.1); Sodium 143 mmol/L (135-145); Total Protein 6.9 g/dL (6.5-8.0)
[2022-04-09 21:42] LABS: SLIDE REVIEW VERIFIED
--- NOTE | 2022-04-10 | ECG_ITS ---
Test Reason : medical clearance Blood Pressure : / mmHG Vent. Rate : 079 BPM Atrial Rate : 000 BPM P-R Int : 000 ms QRS Dur : 068 ms QT Int : 364 ms P-R-T Axes : 000 093 048 degrees QTc Int : 417 ms Accelerated Junctional rhythm Rightward axis Abnormal ECG No previous ECGs available Referred By: Yamel Willams Electronically Signed By:AVEL SELLERS
[2022-04-10 02:39] LABS: Amphetamine Screen Urine Not Detected (Not Detect); Barbiturates, Urine Not Detected (Not Detect); Benzodiazepines Screen Urine Not Detected (Not Detect); Cannabinoid Screen Urine POSITIVE (Not Detect); Cocaine Screen Urine Not Detected (Not Detect); Fentanyl, urine Not Detected (Not Detect); Opiate Screen Urine Not Detected (Not Detect); Phencyclidine Screen Urine Not Detected (Not Detect)
[2022-04-10 05:30] VITALS: BMI 15.5
--- NOTE | 2022-04-10 05:31 | PC.NURSE ---
Patient slept through the night, no distress observed/reported, patient exhibiting clear characteristic of anorexia poor body weight as evidenced by body weight of 43.8 kg. Patient was assessed by JUAN in the community, disposition is section 12 inpatient bed search, med rec completed/patient is off his medication, will continue to monitor.
--- NOTE | 2022-04-10 07:55 | PC.NURSE ---
patient appears to remain asleep at present respirations are even and unlabored patient appears in no distress
--- NOTE | 2022-04-10 09:19 | MHC.CARE ---
Call from patient's cousin, Griselda Bernard [phone] (initiated crisis eval) who was calling with patient's mother who does not speak Urdu. Would like to speak with someone regarding history/symptoms/concerns, advised patient has not been admitted to the unit yet and SW and/or psychiatrist will reach out to them likely tomorrow. They are available at any time to take call from provider or clinician.
[2022-04-10 12:51] VITALS: BP 113/83; PULSE 83; TEMP 37.1; O2SAT 98
[2022-04-10 15:15] VITALS: BP 138/90; PULSE 100; TEMP 37; O2SAT 100
[2022-04-10 15:53] VITALS: BP 138/90; PULSE 100; RESP 16; TEMP 37; O2SAT 100
--- NOTE | 2022-04-10 19:20 | PC.ADMIT ---
Patient is a 31 year old single, bilingual ([place]) single male, admitted as a CV admission to at 1530 and placed on 15 minute safety checks. Patient was medically cleared in the [facility] ED, evaluated by N and deemed in need of IPLOC secondary to noncompliance with medications, paranoid delusions that his family is not feeding him and threatening harm to his family. Patient has no previous admissions to [facility] but has been inpatient at [facility] [place] [facility] and [facility] in 2000 and 2018. At this time patient has been without any community providers and also lacks a stable place to live. Per the N report, patient has had a long history of psychiatric issues, as far back as the age of 9. The patient admission diagnosis: other specified schizophrenia spectrum, he has no current medical issues. Patient was somewhat quiet during the admission process, soft spoken and at times hard to hear. He said he did not really know why he is here but does understand he might have medications ordered to assist him. Patient minimized any past HI, or any threatening behavior towards his family. Patient did mention that he has to be careful about the amount of calcium he ingests but was not able to explain the specific reason. He denied any AH, SI/HI, or VH, although he had threatened his family and the police were called. Patient signed all of his legals. Safety tool and treatment plan done.
--- NOTE | 2022-04-10 20:10 | PC.NURSE ---
Patient c/o pain in his veins but could not give any more details. Provider neon glass bender was notified and order for Ibuprofen 400 mg. po q 6 hours prn pain was received.
--- NOTE | 2022-04-10 20:18 | PC.NURSE ---
Patient c/o vein pain and mentioned that he thinks his veins are clogged. He was unable to give a numerical rating, but did say the pain was severe . Provider notified and Ibuprofen 600 mg. po q 8 hours was ordered.
[2022-04-10] MEDS: Ibuprofen 600 MG TABLET PO (20:22)
[2022-04-10] MEDS: traZODone HCL 50 MG TABLET PO (20:30)
[2022-04-11 06:00] VITALS: BP 118/80; PULSE 88; TEMP 36.5; O2SAT 98
[2022-04-11 09:34] LABS: Estimated Average Glucose 100 mg/dL; Hemoglobin A1c % 5.1 %
[2022-04-11 09:46] LABS: Cholesterol 116 mg/dL; HDL Cholesterol 21 mg/dL; LDL Cholesterol Calculated 66 mg/dl; Triglycerides 146 mg/dL
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
[2022-04-11 16:18] LABS: Syphilis Screen Nonreactive (Nonreactive)
[2022-04-11 17:45] VITALS: BP 111/63; PULSE 90; RESP 16; TEMP 37; O2SAT 98
[2022-04-11] MEDS: Mineral Oil/Petrolatum,White 106 GM Tube 1 APPL TOPICAL ×2 (18:09→19:48)
[2022-04-11] MEDS: OLANZapine 5 MG TABLET PO (19:33)
[2022-04-11] MEDS: Ibuprofen 600 MG TABLET PO (20:22)
[2022-04-12] MEDS: Mineral Oil/Petrolatum,White 106 GM Tube 1 APPL TOPICAL (08:20)
[2022-04-12 09:15] VITALS: BP 111/73; PULSE 97; RESP 17; TEMP 36.9; O2SAT 96
[2022-04-12] MEDS: Ibuprofen 600 MG TABLET PO (09:35)
[2022-04-12 09:43] LABS: HIV AB/AG Reactive (Nonreactive)
[2022-04-12 10:42] VITALS: BMI 15.4
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
[2022-04-12 18:00] VITALS: BP 124/85; PULSE 87; RESP 16; TEMP 37.6; O2SAT 100
[2022-04-12] MEDS: OLANZapine 10 MG TABLET PO (20:38)
[2022-04-13 06:00] VITALS: BP 111/67; PULSE 110; TEMP 37.2
[2022-04-13] MEDS: Mineral Oil/Petrolatum,White 106 GM Tube 1 APPL TOPICAL (08:49)
--- NOTE | 2022-04-13 15:17 | P.PNPSI_ITS ---
Subjective Subjective Date of Service: 04/13/22 Reason For Visit: psychosis Interim History: late entry for patient seen on 04/13 odd, disheveled; mostly keeping to himself; again found lying in bed; peaks at specification writer from [employer]. Says he's aright... again says he does not have HIV and not open to discussion. Denies SI or HI saying he's not thinking about his family at all. Difficult to engage further. Denies problem w/ meds. Mental Status Exam Mental Status Exam Narrative: Pt is alert and oriented; behavior is cooperative and calm but odd; patient is not in distress; dressed in casual attire, lying in bed with sheet over head which he removes to talk, peaking out from underneath; disheveled; mood is described as alright and affect constricted; eye contact appropriate; Speech is normal rate, volume and prosody and not pressured; no psychomotor agitation/r etardation present; thought process can be goal oriented but tangential and disjointed too; Thought content is on paranoid ideas, people against him; can be pertinent to relevant topics; denies any SI/HI; Patient appears internally preoccupied. Patients insight and judgment are impaired Diagnostics Vital Signs (24Hr): Vital Signs - 24 hr 04/14/22 18:00 04/15/22 06:00 Temperature 97 F 97.6 F Pulse Rate 96 102 H Respiratory Rate 16 16 Blood Pressure 111/73 109/68 Pulse Oximetry 98 98 Oxygen Delivery Method Room Air BMI result Body Mass Index 15.4 Labs Results: 04/15/22 11:22 04/15/22 11:22 Labs: Laboratory Results - last 48 hr 04/15/22 04/15/22 04/15/22 11:22 11:22 11:22 WBC 7.8 RBC 4.03 L D Hgb 11.9 L D Hct 37.1 L D MCV 92.1 MCH 29.5 MCHC 32.1 RDW 14.7 Plt Count 114 L MPV 12.1 Immature Gran % (Auto) 1.8 H Neut % (Auto) 62.3 Lymph % (Auto) 13.4 L [place] % (Auto) 6.5 Eos % (Auto) 14.9 H Baso % (Auto) 1.1 Lymph # (Auto) 0.4 L [place] # (Auto) 0.2 Eos # (Auto) 0.4 Baso # (Auto) 0.0 Abs Immat Gran (auto) 0.05 H Absolute Neuts (auto) 1.7 L Absolute Nucleated RBC 0.000 Nucleated RBC % (auto) 0.0 Sodium Cancelled 142 Potassium Cancelled 4.3 Chloride Cancelled 108 Carbon Dioxide Cancelled 21 L Anion Gap Cancelled 17 BUN Cancelled 27 H D Creatinine Cancelled 1.07 Estim Creat Clear Calc Cancelled 61.9 Estimated GFR Cancelled > 60 Random Glucose Cancelled 91 Calcium Cancelled 8.5 D Phosphorus 4.2 Magnesium 2.0 Total Bilirubin Cancelled 0.3 AST Cancelled 68 H ALT Cancelled 26 Alkaline Phosphatase Cancelled 66 Total Protein Cancelled 8.4 H D Albumin Cancelled 3.1 L Imaging Radiology Impressions: ITS Impressions Chest X-Ray 04/09/22 21:00 IMPRESSION: No acute intrathoracic disease. Medications Medications Current Medications Al Hydroxide/Mg Hydroxide (Magnesium Hydrox/Alum Hydrox 30 Ml Oral.Susp) 30 ml PO Q6H PRN PRN Reason: Heartburn/Nausea Diphenhydramine HCl (Diphenhydramine Hcl 25 Mg Tablet) 50 mg PO Q4H PRN PRN Reason: agitation Haloperidol (Haloperidol 5 Mg Tablet) 5 mg PO Q4H PRN PRN Reason: agitation Hydroxyzine HCl (Hydroxyzine Hcl 25 Mg Tablet) 25 mg PO Q6H PRN PRN Reason: Anxiety Last Admin: 04/14/22 11:54 Dose: 25 mg Ibuprofen (Ibuprofen 600 Mg Tablet) 600 mg PO Q8H PRN PRN Reason: Pain, Mild (Pain Scale 1-3) Last Admin: 04/15/22 08:48 Dose: 600 mg Lorazepam (Lorazepam 1 Mg Tablet) 2 mg PO Q4H PRN PRN Reason: agitation Magnesium Hydroxide (Milk Of Magnesia 30 Ml Oral.Susp) 30 ml PO DAILY PRN PRN Reason: Constipation Multi-Ingred Cream/Lotion/Oil/Oint (Mineral Oil/Petrolatum,White 106 Gm Tube) 1 appl TOPICAL TID NINA; Protocol Last Admin: 04/15/22 08:50 Dose: 1 appl Nicotine Polacrilex (Nicotine Polacrilex 2 Mg Gum) 4 mg BUCCAL Q2H PRN PRN Reason: Nicotine Cravings Olanzapine (Olanzapine 10 Mg Tablet) 10 mg PO BEDTIME NINA Last Admin: 04/14/22 19:27 Dose: 10 mg Trazodone HCl (Trazodone Hcl 50 Mg Tablet) 50 mg PO BEDTIME PRN PRN Reason: Insomnia Last Admin: 04/14/22 19:27 Dose: 50 mg Allergies Allergies Allergy/AdvReac Type Severity Reaction Status Date / Time amoxicillin [AMOXICILLIN] Allergy Intermediate HIVES Verified 01/13/22 01:51 clindamycin [CLINDAMYCIN] Allergy Mild RASH Verified 01/13/22 01:52 Penicillins [PENICILLINS] Allergy Unknown HIVES Verified 01/13/22 01:52 shellfish derived Allergy Hives Verified 06/15/20 18:21 shrimp Allergy Hives Verified 06/15/20 18:21 Assessment & Plan Assessment & Plan (1) Chronic schizophrenia: Status: Acute Code(s): F20.9 - Schizophrenia, unspecified (2) Pancytopenia: Status: Acute Code(s): D61.818 - Other pancytopenia Plan Patient is 34-year-old male with history of psychotic illness who presents for bizarre behaviors, aggressive towards family making homicidal threats. Patient is a limited historian; he is dishevelled and cachectic, weighing only about 96 lbs. Patient has minimal insight; has some bizarre and paranoid delusions. It has been reported he was making homicidal threats to his family although he denies this. Patient is amenable to being on the unit and to restarting Zyprexa. Patient also has chronic pancytopenia; he does have a dip painter at [facility], Dr. Talha Jaquez. Will admit for safety and medication management 04/12 remains delusional; does not believe veracity of HIV labwork 04/13 delusional, disorganzized, no insight. PLAN: CV? Q 15 minute checks 1. Schizophrenia: Increase to Zyprexa 10 mg at bedtime? -RPR negative; TP antibody ordered (labwork as it is a differential for ps ychotic symptoms).? -mother provided some limited collateral 2. Pancytopenia: HIV? -Chronic; has outpatient dip painter at [facility], Dr. Talah Jaquez; will reach out to see if can get info -HIV screening +labs -Dr. Neville consulted and following 3. Vascular calcifications? I spent minutes with the patient and/or on the patient floor today, greater than?50% of which was spent counseling/coordinating care. Patient educated on: diagnosis Informed Consent: does not understand Reason for contiued inpatient stay Substantial Risk for: inability to function
[2022-04-13 16:08] VITALS: BP 102/68; PULSE 109; RESP 16; TEMP 36.6; O2SAT 98
[2022-04-13] MEDS: traZODone HCL 50 MG TABLET PO (20:15)
[2022-04-13] MEDS: Ibuprofen 600 MG TABLET PO (20:15)
[2022-04-13] MEDS: OLANZapine 10 MG TABLET PO (20:15)
[2022-04-14 06:00] VITALS: BP 114/72; PULSE 98; RESP 18; TEMP 36.7; O2SAT 98
[2022-04-14] MEDS: Ibuprofen 600 MG TABLET PO (11:54)
[2022-04-14] MEDS: hydrOXYzine HCL 25 MG TABLET PO (11:54)
[2022-04-14 18:00] VITALS: BP 111/73; PULSE 96; RESP 16; TEMP 36.1; O2SAT 98
--- NOTE | 2022-04-14 18:21 | HO.PSYCHPN ---
Subjective Subjective Date of Service: 04/14/22 Reason For Visit: psychosis Interim History: Patient seen and discussed. Patient is laying in bed. He reports he is feeling well. Report from RN notes he is isolative and paranoid. He tells me he wants me to exchange his ice cream that was on his lunch tray. He says it has calcium and calcium causes his veins to clog. He has not been eating well. Reviewed labs. Patient has low Ca++. I ordered labs and patient refused to have them drawn when the motor vehicle lecturer came. Patient was educated about risks of hypocalcemia. Patient's insight is severely impaired. He was disheveled and unkempt. Mental Status Exam Mental Status Exam Narrative: Pt is alert and oriented; behavior is cooperative and calm but odd; patient is not in distress; dressed in casual attire, wearing blanket around him; disheveled; mood is described as alright and affect constricted; eye contact poor; Speech is low volume. ; no psychomotor agitation/retardation present; thought process can be goal oriented but tangential and disjointed too; Thought content is on paranoid ideas, his ex-girlfriend, not being fed any food, people against him; can be pertinent to relevant topics; denies any SI/HI however it was reported that he was making homicidal threats towards family members and has a history of such. Patient appears internally preoccupied. Patients insight and judgment are impaired Diagnostics Vital Signs (24Hr): Vital Signs - 24 hr 04/14/22 06:00 Temperature 98.1 F Pulse Rate 98 Respiratory Rate 18 Blood Pressure 114/72 Pulse Oximetry 98 BMI result Body Mass Index 15.4 Labs Results: 04/09/22 20:45 04/09/22 20:45 Imaging Radiology Impressions: ITS Impressions Chest X-Ray 04/09/22 21:00 IMPRESSION: No acute intrathoracic disease. Medications Medications Current Medications Al Hydroxide/Mg Hydroxide (Magnesium Hydrox/Alum Hydrox 30 Ml Oral.Susp) 30 ml PO Q6H PRN PRN Reason: Heartburn/Nausea Diphenhydramine HCl (Diphenhydramine Hcl 25 Mg Tablet) 50 mg PO Q4H PRN PRN Reason: agitation Haloperidol (Haloperidol 5 Mg Tablet) 5 mg PO Q4H PRN PRN Reason: agitation Hydroxyzine HCl (Hydroxyzine Hcl 25 Mg Tablet) 25 mg PO Q6H PRN PRN Reason: Anxiety Last Admin: 04/14/22 11:54 Dose: 25 mg Ibuprofen (Ibuprofen 600 Mg Tablet) 600 mg PO Q8H PRN PRN Reason: Pain, Mild (Pain Scale 1-3) Last Admin: 04/14/22 11:54 Dose: 600 mg Ibuprofen (Ibuprofen 400 Mg Tablet) 400 mg PO Q6H PRN PRN Reason: mod pain Lorazepam (Lorazepam 1 Mg Tablet) 2 mg PO Q4H PRN PRN Reason: agitation Magnesium Hydroxide (Milk Of Magnesia 30 Ml Oral.Susp) 30 ml PO DAILY PRN PRN Reason: Constipation Multi-Ingred Cream/Lotion/Oil/Oint (Mineral Oil/Petrolatum,White 106 Gm Tube) 1 appl TOPICAL TID NINA; Protocol Last Admin: 04/14/22 14:23 Dose: Not Given Nicotine Polacrilex (Nicotine Polacrilex 2 Mg Gum) 4 mg BUCCAL Q2H PRN PRN Reason: Nicotine Cravings Olanzapine (Olanzapine 10 Mg Tablet) 10 mg PO BEDTIME INNA Last Admin: 04/13/22 20:15 Dose: 10 mg Trazodone HCl (Trazodone Hcl 50 Mg Tablet) 50 mg PO BEDTIME PRN PRN Reason: Insomnia Last Admin: 04/13/22 20:15 Dose: 50 mg Allergies Allergies Allergy/AdvReac Type Severity Reaction Status Date / Time amoxicillin [AMOXICILLIN] Allergy Intermediate HIVES Verified 01/13/22 01:51 clindamycin [CLINDAMYCIN] Allergy Mild RASH Verified 01/13/22 01:52 Penicillins [PENICILLINS] Allergy Unknown HIVES Verified 01/13/22 01:52 shellfish derived Allergy Hives Verified 06/15/20 18:21 shrimp Allergy Hives Verified 06/15/20 18:21 Assessment & Plan Assessment & Plan (1) Chronic schizophrenia: Status: Acute Code(s): F20.9 - Schizophrenia, unspecified (2) Pancytopenia: Status: Acute Code(s): D61.818 - Other pancytopenia Plan Patient is 34-year-old male with history of psychotic illness who presents for bizarre behaviors, aggressive towards family making homicidal threats. Patient is a limited historian; he is dishevelled and cachectic, weighing only about 96 lbs. Patient has minimal insight; has some bizarre and paranoid delusions. It has been reported he was making homicidal threats to his family although he denies this. Patient is amenable to being on the unit and to restarting Zyprexa. Patient also has chronic pancytopenia; he does have a quarrying manager at [facility], Dr. Talha Jaquez. Will admit for safety and medication management PLAN: CV Q 15 minute checks 1. Schizophrenia: Restart Zyprexa 5 mg at bedtime (that was his last prescribed dose) -will get RPR labwork as it is a differential for psychotic symptoms. -will seek collateral 2. Pancytopenia: -Chronic; has outpatient quarrying manager at [facility], Dr. Talha Jaquez; will reach out to see if can get info -Pt agrees to get HIV labs (made reference to IV drug use with cocaine) 04/14: Patient continues paranoid. Delusional and refusing blood draw to check Ca ++ levels. I spent minutes with the patient and/or on the patient floor today, greater than?50% of which was spent counseling/coordinating care. Patient educated on: medical condition Reason for contiued inpatient stay Substantial Risk for: harm to self, harm to others, inability to function, rapid decompensation and med/psych decompensation
[2022-04-14] MEDS: OLANZapine 10 MG TABLET PO (19:27)
[2022-04-14] MEDS: traZODone HCL 50 MG TABLET PO (19:27)
[2022-04-15 06:00] VITALS: BP 109/68; PULSE 102; RESP 16; TEMP 36.4; O2SAT 98
[2022-04-15] MEDS: Ibuprofen 600 MG TABLET PO ×2 (08:48→20:24)
[2022-04-15] MEDS: Mineral Oil/Petrolatum,White 106 GM Tube 1 APPL TOPICAL ×2 (08:50→17:49)
[2022-04-15 11:27] LABS: MANUAL DIFF FLAG NO
[2022-04-15 11:37] LABS: Basophils Percent Auto 1.1 % (0-2); Eosinophils Absolute Auto 0.4 X10*3/uL (0.0-0.4); Eosinophils Percent Auto 14.9 % (0-4); Hematocrit 37.1 % (42.0-52.0); Hemoglobin 11.9 g/dl (14.0-18.0); Imm Gran Abs Auto 0.05 X10*3/uL (0.00-0.03); Imm Gran Pct Auto 1.8 % (0.0-0.4); Lymphocytes Absolute Auto 0.4 X10*3/uL (1.2-4.9); Lymphocytes Percent Auto 13.4 % (20-40); Mean Corpuscular HGB Conc 32.1 g/dl (31.0-36.0); Mean Corpuscular Hemoglobin 29.5 pg (27.0-33.0); Mean Corpuscular Volume 92.1 fL (80.0-98.0); Monocytes Absolute Auto 0.2 X10*3/uL (0.1-1.2); Monocytes Percent Auto 6.5 % (2-11); Neutrophils Absolute Auto 1.7 x10*3/uL (2.0-8.3); Neutrophils Percent Auto 62.3 % (45-73); Red Blood Count 4.03 X10*6/uL (4.60-5.80); Red Cell Distribution Width 14.7 % (11.0-16.0)
[2022-04-15 11:38] LABS: Mean Platelet Volume 12.1 fL (9.4-12.4); Platelet Count 114 X10*3/uL (160-400); White Blood Count 7.8 X10*3/uL (4.8-10.8)
[2022-04-15 12:09] LABS: Alanine Aminotransferase 26 U/L (0-40); Albumin Level 3.1 g/dL (3.5-5.0); Alkaline Phosphatase 66 U/L (39-117); Anion Gap 17 (12-20); Aspartate Amino Transferase 68 U/L (5-37); Bilirubin Total 0.3 mg/dL (0.0-1.0); Blood Urea Nitrogen 27 mg/dL (9-16); Calcium 8.5 mg/dL (8.4-10.2); Carbon Dioxide 21 mmol/L (22-29); Chloride 108 mmol/L (96-108); Creatinine Clr Calc Pharmacy 61.9; Estimated Glomerular Filt Rate > 60; Glucose Random 91 mg/dL (60-115); Phosphorus 4.2 mg/dL (2.7-4.5); Potassium 4.3 mmol/L (3.3-5.1); Sodium 142 mmol/L (135-145); Total Protein 8.4 g/dL (6.5-8.0)
--- NOTE | 2022-04-15 17:18 | P.PNPSI_ITS ---
Subjective Subjective Date of Service: 04/15/22 Reason For Visit: psychosis Interim History: Patient seen and discussed with the team. Patient continues to be isolative, poor appetite, lying in bed most of the day. His vital signs stable. The patient was amenable to a blood draw today. He was diagnosed with HIV and understands that he needs in to have testing done. You will be getting a viral load and other HIV markers. Ordered a comprehensive metabolic panel and extended electrolytes and Calcium has normalized. Continues to have very soft voice. He denies suicidal ideation. He has been compliant with medications. His thoughts continue somewhat tangential. Mental Status Exam Mental Status Exam Narrative: Pt is alert and oriented; behavior is cooperative and calm but odd; patient is not in distress; dressed in casual attire, lying in bed with sheet over head which he removes to talk, peaking out from underneath; disheveled; mood is described as alright and affect constricted; eye contact appropriate; Speech is normal rate, volume and prosody and not pressured; no psychomotor agitation/retardation present; thought process can be goal oriented but tangential and disjointed too; Thought content is on paranoid ideas, people against him; can be pertinent to relevant topics; denies any SI/HI; Patient appears internally preoccupied. Patients insight and judgment are impaired Diagnostics Vital Signs (24Hr): Vital Signs - 24 hr 04/14/22 18:00 04/15/22 06:00 Temperature 97 F 97.6 F Pulse Rate 96 102 H Respiratory Rate 16 16 Blood Pressure 111/73 109/68 Pulse Oximetry 98 98 Oxygen Delivery Method Room Air BMI result Body Mass Index 15.4 Labs Results: 04/15/22 11:22 04/15/22 11:22 Labs: Laboratory Results - last 48 hr 04/15/22 04/15/22 04/15/22 11:22 11:22 11:22 WBC 7.8 RBC 4.03 L D Hgb 11.9 L D Hct 37.1 L D MCV 92.1 MCH 29.5 MCHC 32.1 RDW 14.7 Plt Count 114 L MPV 12.1 Immature Gran % (Auto) 1.8 H Neut % (Auto) 62.3 Lymph % (Auto) 13.4 L [place] % (Auto) 6.5 Eos % (Auto) 14.9 H Baso % (Auto) 1.1 Lymph # (Auto) 0.4 L [place] # (Auto) 0.2 Eos # (Auto) 0.4 Baso # (Auto) 0.0 Abs Immat Gran (auto) 0.05 H Absolute Neuts (auto) 1.7 L Absolute Nucleated RBC 0.000 Nucleated RBC % (auto) 0.0 Sodium Cancelled 142 Potassium Cancelled 4.3 Chloride Cancelled 108 Carbon Dioxide Cancelled 21 L Anion Gap Cancelled 17 BUN Cancelled 27 H D Creatinine Cancelled 1.07 Estim Creat Clear Calc Cancelled 61.9 Estimated GFR Cancelled > 60 Random Glucose Cancelled 91 Calcium Cancelled 8.5 D Phosphorus 4.2 Magnesium 2.0 Total Bilirubin Cancelled 0.3 AST Cancelled 68 H ALT Cancelled 26 Alkaline Phosphatase Cancelled 66 Total Protein Cancelled 8.4 H D Albumin Cancelled 3.1 L Imaging Radiology Impressions: ITS Impressions Chest X-Ray 04/09/22 21:00 IMPRESSION: No acute intrathoracic disease. Medications Medications Current Medications Al Hydroxide/Mg Hydroxide (Magnesium Hydrox/Alum Hydrox 30 Ml Oral.Susp) 30 ml PO Q6H PRN PRN Reason: Heartburn/Nausea Diphenhydramine HCl (Diphenhydramine Hcl 25 Mg Tablet) 50 mg PO Q4H PRN PRN Reason: agitation Haloperidol (Haloperidol 5 Mg Tablet) 5 mg PO Q4H PRN PRN Reason: agitation Hydroxyzine HCl (Hydroxyzine Hcl 25 Mg Tablet) 25 mg PO Q6H PRN PRN Reason: Anxiety Last Admin: 04/14/22 11:54 Dose: 25 mg Ibuprofen (Ibuprofen 600 Mg Tablet) 600 mg PO Q8H PRN PRN Reason: Pain, Mild (Pain Scale 1-3) Last Admin: 04/15/22 08:48 Dose: 600 mg Lorazepam (Lorazepam 1 Mg Tablet) 2 mg PO Q4H PRN PRN Reason: agitation Magnesium Hydroxide (Milk Of Magnesia 30 Ml Oral.Susp) 30 ml PO DAILY PRN PRN Reason: Constipation Multi-Ingred Cream/Lotion/Oil/Oint (Mineral Oil/Petrolatum,White 106 Gm Tube) 1 appl TOPICAL TID NINA; Protocol Last Admin: 04/15/22 08:50 Dose: 1 appl Nicotine Polacrilex (Nicotine Polacrilex 2 Mg Gum) 4 mg BUCCAL Q2H PRN PRN Reason: Nicotine Cravings Olanzapine (Olanzapine 10 Mg Tablet) 10 mg PO BEDTIME NINA Last Admin: 04/14/22 19:27 Dose: 10 mg Trazodone HCl (Trazodone Hcl 50 Mg Tablet) 50 mg PO BEDTIME PRN PRN Reason: Insomnia Last Admin: 04/14/22 19:27 Dose: 50 mg Allergies Allergies Allergy/AdvReac Type Severity Reaction Status Date / Time amoxicillin [AMOXICILLIN] Allergy Intermediate HIVES Verified 01/13/22 01:51 clindamycin [CLINDAMYCIN] Allergy Mild RASH Verified 01/13/22 01:52 Penicillins [PENICILLINS] Allergy Unknown HIVES Verified 01/13/22 01:52 shellfish derived Allergy Hives Verified 06/15/20 18:21 shrimp Allergy Hives Verified 06/15/20 18:21 Assessment & Plan Assessment & Plan (1) Chronic schizophrenia: Status: Acute Code(s): F20.9 - Schizophrenia, unspecified (2) Pancytopenia: Status: Acute Code(s): D61.818 - Other pancytopenia Plan Patient is 34-year-old male with history of psychotic illness who presents for bizarre behaviors, aggressive towards family making homicidal threats. Patient is a limited historian; he is dishevelled and cachectic, weighing only about 96 lbs. Patient has minimal insight; has some bizarre and paranoid delusions. It has been reported he was making homicidal threats to his family although he denies this. Patient is amenable to being on the unit and to restarting Zyprexa. Patient also has chronic pancytopenia; he does have a production gear cutter at [facility] [place], Dr. Talha Jaquez. Will admit for safety and medication management 04/12 remains delusional; does not believe veracity of HIV labwork 04/13 delusional, disorganzized, no insight. PLAN: CV? Q 15 minute checks 1. Schizophrenia: Increase to Zyprexa 10 mg at bedtime? -RPR negative; TP antibody ordered (labwork as it is a differential for psychotic symptoms).? -mother provided some limited collateral 2. Pancytopenia: HIV? -Chronic; has outpatient production gear cutter at [facility] [place], Dr. Talha Jaquez; will reach out to see if can get info -HIV screening +labs -Dr. Neville consulted and following 3. Vascular calcifications? 04/14/2022: Continue current treatment plan. Encourage p.o. intake, out of bed and self-care. continue Zyprexa. I spent minutes with the patient and/or on the patient floor today, greater than?50% of which was spent counseling/coordinating care. Reason for contiued inpatient stay Substantial Risk for: inability to function and rapid decompensation
[2022-04-15 17:45] VITALS: BP 105/68; PULSE 104; TEMP 36.5
[2022-04-15] MEDS: OLANZapine 10 MG TABLET PO (20:17)
[2022-04-15] MEDS: traZODone HCL 50 MG TABLET PO (20:24)
[2022-04-16 06:00] VITALS: BP 102/62; PULSE 106; RESP 18; TEMP 36.6; O2SAT 98
[2022-04-16 08:15] LABS: Syphilis Screen Nonreactive (Nonreactive)
--- NOTE | 2022-04-16 08:31 | HO.PSYCHPN ---
Subjective Subjective Date of Service: 04/16/22 Reason For Visit: psychosis Interim History: Patient remains isolative in his room, under his covers. He says that he is OK [employer] Impregnating Range Tender discussed HIV results and patient acknowledges that he does in fact have HIV. He says he thinks his aunt gave it to. And says he wants to radha her for giving me HIV T[employer] Impregnating Range Tender discussed the possible ways to contract HIV and patient denies them saying no to each of the possible ways. T[employer] Impregnating Range Tender tried to clarify does that mean no he has not had unprotected sex but patient remains vague. He continues to deny any psychiatric symptoms. Difficult to engage. Patient would like to discharge to a alf this Saturday. He says he does not think about his family does not want to go back and live with them. He denies any HI towards family members. He does agree to increasing Zyprexa to 15 mg q.h.s. Discussed case with Dr. Neville who will follow Mental Status Exam Mental Status Exam Narrative: Pt is alert and oriented; behavior is cooperative but distracted; patient is not in distress; lying under covers; disheveled, Cachectic; mood is described as alright and affect blunted; eye contact appropriate; Speech is normal rate, volume and prosody and not pressured; psychomotor retardation present; thought process can be goal oriented but tangential and disjointed too; Thought content is on discharge; thinks his Aunt gave him HIV; difficult to engage; ; can be pertinent to relevant topics; denies any SI/HI; Patient appears internally preoccupied. Patients insight and judgment are impaired Diagnostics Vital Signs (24Hr): Vital Signs - 24 hr 04/15/22 17:45 04/16/22 06:00 Temperature 97.7 F 97.9 F Pulse Rate 104 H 106 H Respiratory Rate 18 Blood Pressure 105/68 102/62 Pulse Oximetry 98 BMI result Body Mass Index 15.4 Labs Results: 04/15/22 11:22 04/15/22 11:22 Labs: Laboratory Results - last 48 hr 04/14/22 04/15/22 04/15/22 09:11 11:22 11:22 WBC 7.8 RBC 4.03 L D Hgb 11.9 L D Hct 37.1 L D MCV 92.1 MCH 29.5 MCHC 32.1 RDW 14.7 Plt Count 114 L MPV 12.1 Immature Gran % (Auto) 1.8 H Neut % (Auto) 62.3 Lymph % (Auto) 13.4 L [place] % (Auto) 6.5 Eos % (Auto) 14.9 H Baso % (Auto) 1.1 Lymph # (Auto) 0.4 L [place] # (Auto) 0.2 Eos # (Auto) 0.4 Baso # (Auto) 0.0 Abs Immat Gran (auto) 0.05 H Absolute Neuts (auto) 1.7 L Absolute Nucleated RBC 0.000 Nucleated RBC % (auto) 0.0 Sodium Cancelled Potassium Cancelled Chloride Cancelled Carbon Dioxide Cancelled Anion Gap Cancelled BUN Cancelled Creatinine Cancelled Estim Creat Clear Calc Cancelled Estimated GFR Cancelled Random Glucose Cancelled Calcium Cancelled Phosphorus Magnesium Total Bilirubin Cancelled AST Cancelled ALT Cancelled Alkaline Phosphatase Cancelled Total Protein Cancelled Albumin Cancelled T.pallidum Ab (EIA) Nonreactive 04/15/22 11:22 WBC RBC Hgb Hct MCV MCH MCHC RDW Plt Count MPV Immature Gran % (Auto) Neut % (Auto) Lymph % (Auto) [place] % (Auto) Eos % (Auto) Baso % (Auto) Lymph # (Auto) [place] # (Auto) Eos # (Auto) Baso # (Auto) Abs Immat Gran (auto) Absolute Neuts (auto) Absolute Nucleated RBC Nucleated RBC % (auto) Sodium 142 Potassium 4.3 Chloride 108 Carbon Dioxide 21 L Anion Gap 17 BUN 27 H D Creatinine 1.07 Estim Creat Clear Calc 61.9 Estimated GFR > 60 Random Glucose 91 Calcium 8.5 D Phosphorus 4.2 Magnesium 2.0 Total Bilirubin 0.3 AST 68 H ALT 26 Alkaline Phosphatase 66 Total Protein 8.4 H D Albumin 3.1 L T.pallidum Ab (EIA) Imaging Radiology Impressions: ITS Impressions Chest X-Ray 04/09/22 21:00 IMPRESSION: No acute intrathoracic disease. Medications Medications Current Medications Al Hydroxide/Mg Hydroxide (Magnesium Hydrox/Alum Hydrox 30 Ml Oral.Susp) 30 ml PO Q6H PRN PRN Reason: Heartburn/Nausea Diphenhydramine HCl (Diphenhydramine Hcl 25 Mg Tablet) 50 mg PO Q4H PRN PRN Reason: agitation Haloperidol (Haloperidol 5 Mg Tablet) 5 mg PO Q4H PRN PRN Reason: agitation Hydroxyzine HCl (Hydroxyzine Hcl 25 Mg Tablet) 25 mg PO Q6H PRN PRN Reason: Anxiety Last Admin: 04/14/22 11:54 Dose: 25 mg Ibuprofen (Ibuprofen 600 Mg Tablet) 600 mg PO Q8H PRN PRN Reason: Pain, Mild (Pain Scale 1-3) Last Admin: 04/15/22 20:24 Dose: 600 mg Lorazepam (Lorazepam 1 Mg Tablet) 2 mg PO Q4H PRN PRN Reason: agitation Magnesium Hydroxide (Milk Of Magnesia 30 Ml Oral.Susp) 30 ml PO DAILY PRN PRN Reason: Constipation Multi-Ingred Cream/Lotion/Oil/Oint (Mineral Oil/Petrolatum,White 106 Gm Tube) 1 appl TOPICAL TID NINA; Protocol Last Admin: 04/15/22 22:36 Dose: Not Given Nicotine Polacrilex (Nicotine Polacrilex 2 Mg Gum) 4 mg BUCCAL Q2H PRN PRN Reason: Nicotine Cravings Olanzapine (Olanzapine 10 Mg Tablet) 10 mg PO BEDTIME NINA Last Admin: 04/15/22 20:17 Dose: 10 mg Trazodone HCl (Trazodone Hcl 50 Mg Tablet) 50 mg PO BEDTIME PRN PRN Reason: Insomnia Last Admin: 04/15/22 20:24 Dose: 50 mg Allergies Allergies Allergy/AdvReac Type Severity Reaction Status Date / Time amoxicillin [AMOXICILLIN] Allergy Intermediate HIVES Verified 01/13/22 01:51 clindamycin [CLINDAMYCIN] Allergy Mild RASH Verified 01/13/22 01:52 Penicillins [PENICILLINS] Allergy Unknown HIVES Verified 01/13/22 01:52 shellfish derived Allergy Hives Verified 06/15/20 18:21 shrimp Allergy Hives Verified 06/15/20 18:21 Assessment & Plan Assessment & Plan (1) Chronic schizophrenia: Status: Acute Code(s): F20.9 - Schizophrenia, unspecified (2) Pancytopenia: Status: Acute Code(s): D61.818 - Other pancytopenia Plan Patient is 34-year-old male with history of psychotic illness who presents for bizarre behaviors, aggressive towards family making homicidal threats. Patient is a limited historian; he is dishevelled and cachectic, weighing only about 96 lbs. Patient has minimal insight; has some bizarre and paranoid delusions. It has been reported he was making homicidal threats to his family although he denies this. Patient is amenable to being on the unit and to restarting Zyprexa. Patient also has chronic pancytopenia; he does have a middleware solutions architect at [facility], Dr. Talha Jaquez. Will admit for safety and medication management 04/12 remains delusional; does not believe veracity of HIV labwork 04/13 delusional, disorganzized, no insight. 04/16 Accepts that he has HIV; still disorganized; still limited and poor insight. Keeps to himself mostly. Wants to discharge to a alf. Patient is open to receiving treatment for HIV. Dietitian consult had been ordered but does not look like he has been seen yet. PLAN: CV? Q 15 minute checks 1. Schizophrenia: Increase to Zyprexa 15 mg at bedtime? -RPR negative; TP antibody Negative -mother provided some limited collateral which corroborated with what patient Report he said to his family -HIV contributory? 2. HIV+ -pancytopenia (Chronic; has outpatient middleware solutions architect at [facility], Dr. Talha Jaquez; will reach out to see if can get info) -Dr. Neville consulted and following and has ordered follow up labs 3. Vascular calcifications? I spent minutes with the patient and/or on the patient floor today, greater than?50% of which was spent counseling/coordinating care. Patient educated on: diagnosis, medication risk/benefits and medical condition Informed Consent: understands and further education needed Reason for contiued inpatient stay Substantial Risk for: med/psych decompensation
[2022-04-16] MEDS: Ibuprofen 600 MG TABLET PO ×2 (08:47→20:04)
[2022-04-16 09:03] LABS: ~HepC Num1 0.84 S/CO (0.00-0.79); ~HepC Num2 0.99; ~HepC Num3 0.87; ~Hepatitis C Antibody GRAYZONE (Nonreactive)
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
[2022-04-16 16:47] LABS: Absolute CD3 Count 217 cells/uL (840-3060); Absolute CD4 Count <20 cells/uL (490-1740); Absolute CD8 Count 192 cells/uL (180-1170); Absolute Lymphocytes 256 cells/uL (850-3900); CD4 CD8 Ratio 0.08 (0.86-5.00); Percent CD3 Cells 85 % (57-85); Percent CD4 Cells 6 % (30-61); Percent CD8 Cells 75 % (12-42)
[2022-04-16 19:55] VITALS: BP 137/87; PULSE 96; TEMP 36.9
[2022-04-16] MEDS: OLANZapine 7.5 MG TABLET 15 MG PO (20:03)
[2022-04-16] MEDS: traZODone HCL 50 MG TABLET PO (20:04)
[2022-04-17] MEDS: Sulfamethox/Trimeth 800/160 TABLET 1 TAB PO (08:32)
[2022-04-17] MEDS: Ibuprofen 600 MG TABLET PO (08:35)
--- NOTE | 2022-04-17 12:54 | MHC.CLN ---
RE: CONSULT HT66 WT 95# IBW 142#+/-10% PT IS 67% IBW INDICATES SEVERELY UNDER WT FOR HT PREVIOUS WT HX REVEALS: CURRENT 43.4KG 45KG (12/29/21) NO SIGNIFICANT WT CHANGES 54KG (05/2020) -20% NON-SIGNIFICANT WT LOSS X 2 YEARS PT TYPICALLY REMAINS ON LOWER END OF IBW RANGE. NOTED CACHETIC PER MD ESTIMATED NUTRITION NEEDS: 1302KCALS, 52G PROTEIN, 1300ML FLUID LABS: 04/15/22 BUN 27, ALBUMIN 3.1 DIET RX: REGULAR-APPROPRIATE PT REPORTS HE IS EATING AT MEALS. REPORTS CAN NOT DRINK MILK RECOMMEND ADDING ENSURE PLUS HIGH PROTEIN TID WITH MEALS SUPPLEMENT IS LACTOSE FREE AND WILL PROVIDE 1050KCALS, 60GPROTEIN MONITOR PO INTAKE CLOSELY WEEKLY WEIGHTS
[2022-04-17 14:36] LABS: Calcium, Ionized 4.8 mg/dL (4.8-5.6)
[2022-04-17 15:12] LABS: HIV RNA PCR Qn Copies 1110000 copies/mL (NOT DETECTED); HIV RNA PCR Qn Log Copies 6.05 (NOT DETECTED)
[2022-04-17] MEDS: Bictegrav/Emtricit/Tenofov Ala TABLET 1 TAB PO (15:17)
--- NOTE | 2022-04-17 15:18 | PC.NURSE ---
Stepan was started on Corp[facility] today by doctor Neville. His serology results on the computer were reading as pending and the doctor stated, Schuyler it came back positive and CD4 count undetectable .
[2022-04-17 18:00] VITALS: BP 128/82; PULSE 68; RESP 16; TEMP 37; O2SAT 98
[2022-04-17] MEDS: OLANZapine 7.5 MG TABLET 15 MG PO (19:40)
--- NOTE | 2022-04-17 21:55 | P.PNPSI_ITS ---
Subjective Subjective Date of Service: 04/17/22 Reason For Visit: psychosis Interim History: Remains unchanged, no insight, says he is all right and denies all psychiatric symptoms. Wants to discharge Saturday. Says he will follow-up with Infectious Disease. Of note patient is eating more and asked for Ketchup so he could eat his meal. Mental Status Exam Mental Status Exam Narrative: Pt is alert and oriented; behavior is cooperative but distracted; patient is not in distress; lying under covers; disheveled, Cachectic; mood is described as alright and affect blunted; eye contact appropriate; Speech is normal rate, volume and prosody and not pressured; psychomotor retardation present; thought process can be goal oriented but tangential and disjointed too; Thought content is on discharge; thinks his Aunt gave him HIV; difficult to engage; ; can be pertinent to relevant topics; denies any SI/HI; Patient appears internally preoccupied. Patients insight and judgment are impaired Diagnostics Vital Signs (24Hr): BMI result Body Mass Index 15.4 Labs Results: 04/18/22 08:44 04/18/22 08:44 Labs: Laboratory Results - last 48 hr 04/14/22 04/14/22 04/14/22 09:11 09:11 09:11 Ionized Calcium Lymphocyte Subset Cmmnt TNP Total Lymphocytes 256 L % CD3 Cells 85 Absolute CD3 Count 217 L % CD4 Cells 6 L Absolute CD4 Count <20 L CD4/CD8 Ratio 0.08 L % CD8 Cells 75 H Absolute CD8 Count 192 T.pallidum Ab (EIA) Nonreactive Hepatitis C Ab (EIA) HIV-1 RNA copies/mL [id number] H HIV-1 RNA logcopies/mL 6.05 H 04/14/22 04/15/22 04/15/22 09:11 11:22 11:22 Ionized Calcium 4.8 Cancelled Lymphocyte Subset Cmmnt Total Lymphocytes % CD3 Cells Absolute CD3 Count % CD4 Cells Absolute CD4 Count CD4/CD8 Ratio % CD8 Cells Absolute CD8 Count T.pallidum Ab (EIA) Hepatitis C Ab (EIA) GRAYZONE HIV-1 RNA copies/mL HIV-1 RNA logcopies/mL Imaging Radiology Impressions: ITS Impressions Chest X-Ray 04/09/22 21:00 IMPRESSION: No acute intrathoracic disease. Medications Medications Current Medications Al Hydroxide/Mg Hydroxide (Magnesium Hydrox/Alum Hydrox 30 Ml Oral.Susp) 30 ml PO Q6H PRN PRN Reason: Heartburn/Nausea Bictegravir/Emtricitabine/Tenofovir (Bictegrav/Emtricit/Tenofov Ala Tablet) 1 tab PO DAILY NINA Last Admin: 04/17/22 15:17 Dose: 1 tab Diphenhydramine HCl (Diphenhydramine Hcl 25 Mg Tablet) 50 mg PO Q4H PRN PRN Reason: agitation Haloperidol (Haloperidol 5 Mg Tablet) 5 mg PO Q4H PRN PRN Reason: agitation Hydroxyzine HCl (Hydroxyzine Hcl 25 Mg Tablet) 25 mg PO Q6H PRN PRN Reason: Anxiety Last Admin: 04/14/22 11:54 Dose: 25 mg Ibuprofen (Ibuprofen 600 Mg Tablet) 600 mg PO Q8H PRN PRN Reason: Pain, Mild (Pain Scale 1-3) Last Admin: 04/17/22 08:35 Dose: 600 mg Lorazepam (Lorazepam 1 Mg Tablet) 2 mg PO Q4H PRN PRN Reason: agitation Magnesium Hydroxide (Milk Of Magnesia 30 Ml Oral.Susp) 30 ml PO DAILY PRN PRN Reason: Constipation Multi-Ingred Cream/Lotion/Oil/Oint (Mineral Oil/Petrolatum,White 106 Gm Tube) 1 appl TOPICAL TID NINA; Protocol Last Admin: 04/17/22 21:17 Dose: Not Given Nicotine Polacrilex (Nicotine Polacrilex 2 Mg Gum) 4 mg BUCCAL Q2H PRN PRN Reason: Nicotine Cravings Olanzapine (Olanzapine 7.5 Mg Tablet) 15 mg PO BEDTIME NINA Last Admin: 04/17/22 19:40 Dose: 15 mg Trazodone HCl (Trazodone Hcl 50 Mg Tablet) 50 mg PO BEDTIME PRN PRN Reason: Insomnia Last Admin: 04/16/22 20:04 Dose: 50 mg Trimethoprim/Sulfamethoxazole (Sulfamethox/Trimeth 800/160 Tablet) 1 tab PO DAILY NINA Last Admin: 04/17/22 08:32 Dose: 1 tab Allergies Allergies Allergy/AdvReac Type Severity Reaction Status Date / Time amoxicillin [AMOXICILLIN] Allergy Intermediate HIVES Verified 01/13/22 01:51 clindamycin [CLINDAMYCIN] Allergy Mild RASH Verified 01/13/22 01:52 Penicillins [PENICILLINS] Allergy Unknown HIVES Verified 06/18/22 01:52 shellfish derived Allergy Hives Verified 06/15/20 18:21 shrimp Allergy Hives Verified 06/15/20 18:21 Assessment & Plan Assessment & Plan (1) Positive laboratory testing for human immunodeficiency virus: Status: Acute Code(s): Z21 - Asymptomatic human immunodeficiency virus [HIV] infection status Assessment and Plan: Screening test is positive for HIV preliminary and final testing is pending This diagnosis would explain seborrheic dermatitis and B12 deficiency and pancytopenia. He denies IVDU but not certain of sexual exposure. (2) B12 deficiency: Status: Acute Code(s): E53.8 - Deficiency of other specified B group vitamins (3) Pancytopenia: Status: Acute Code(s): D61.818 - Other pancytopenia (4) Chronic schizophrenia: Status: Acute Code(s): F20.9 - Schizophrenia, unspecified Plan Patient is 34-year-old male with history of psychotic illness who presents for bizarre behaviors, aggressive towards family making homicidal threats.? Patient is a limited historian; he is dishevelled and cachectic, weighing only about 96 lbs. Patient has minimal insight; has some bizarre and paranoid delusions.? It has been reported he was making homicidal threats to his family although he denies this. Patient is amenable to being on the unit and to restarting Zyprexa. 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 Talha Jaquez. Will admit for safety and medication management 04/12 remains delusional; does not believe veracity of HIV labwork 04/13 delusional, disorganzized, no insight. 04/16 Accepts that he has HIV; still disorganized; still limited and poor insight.? Keeps to himself mostly.? Wants to discharge to a prison.? Patient is open to receiving treatment for HIV.? Dietitian consult had been ordered but does not look like he has been seen yet. 04/17 Remains unchanged, blunted, poor insight; says he is Alright Patient looks frail; lab work reveals AIDS; Patient still wants to discharge Saturday; still remains open to treatment for HIV/aids PLAN: CV? Q 15 minute checks Stat dietitian consult placed again 1. Schizophrenia: Increase to Zyprexa 15 mg at bedtime? -RPR negative; TP antibody Negative (negative 2018 at [facility]) -mother provided some limited collateral which corroborated with what patient Report he said to his family -HIV contributory? 2. HIV+ -pancytopenia (Chronic; has outpatient etcher apprentice at [facility], Dr. Talha Jaquez; will reach out to see if can get info) -Dr. Neville consulted and following and has ordered follow up labs CD4 count/HIV viral load indicate AIDS Check Hepatitis C Notes from Dr Jaquez form 07/13/2021 in chart from [facility]. Biktarvy vs Dovato (integrase inhibitor combination with NRTI therapy) 3. Vascular calcifications? I spent minutes with the patient and/or on the patient floor today, greater than?50% of which was spent counseling/coordinating care. Patient educated on: diagnosis, medication risk/benefits and medical condition Informed Consent: understands and further education needed Reason for contiued inpatient stay Substantial Risk for: other (Not in imminent risk of harming self or others)
--- NOTE | 2022-04-17 23:13 | PM.IDPN ---
Subjective Subjective Date of Service: 04/17/22 Critical Care Time (minutes): 15 Comment: He feels well. He wishes to start therapy for HIV. He has confirmed test positive. He sees Dr Carreno as PCP. Objective Data Labs CBC & Chem 7: 04/15/22 11:22 04/15/22 11:22 Labs: Laboratory Results - last 24 hr 04/14/22 04/14/22 04/15/22 09:11 09:11 11:22 Ionized Calcium 4.8 Lymphocyte Subset Cmmnt TNP HIV-1 RNA copies/mL [id number] H HIV-1 RNA logcopies/mL 6.05 H Physical Exam Vital Signs: Vital Signs: Last Vital Signs Temp 98.6 F 04/17/22 18:00 Pulse 68 04/17/22 18:00 Resp 16 04/17/22 18:00 BP 128/82 04/17/22 18:00 Pulse Ox 98 04/17/22 18:00 O2 Del Method 04/17/22 18:00 BMI result Body Mass Index 15.4 Const: General: cooperative Nutritional Appearance: thin and underweight HEENT: Head: Yes normal to inspection Resp: Effort & Inspection: normal respiratory effort Cardio: Rate: regular rate Rhythm: regular rhythm GI: Inspection: Yes normal to inspection Assessment and Plan Assessment and plan (1) AIDS: Problem details: He is willing to start therapy for AIDS CD4 count under 200 and is undetectable here. Status: Acute Assessment and Plan: Start Biktarvy See in one month call [phone] and make appt with me before leaves. Time Spent With Patient Time: Total time spent is greater than 50% in coordination of care (as documented) at patient's floor/unit and/or counseling patient:
--- NOTE | 2022-04-18 01:31 | PC.NURSE ---
Pt reports falling on his knees when he got up to use the bathroom. VSS, No visible sign of bruising or cuts. Pt denies pain. Provider notified, no new orders given.
[2022-04-18 05:19] VITALS: BP 111/65; PULSE 112; RESP 20; TEMP 38.6; O2SAT 96
[2022-04-18 05:46] VITALS: TEMP 38.4
[2022-04-18 08:00] VITALS: BP 118/78; PULSE 118; RESP 20; TEMP 37.5; O2SAT 95
[2022-04-18 08:09] LABS: Influenza A PCR NEGATIVE (Negative); Influenza B PCR NEGATIVE (Negative); Resp Syncy Virus RNA Qual PCR NEGATIVE (Negative); SARS COV2 PCR INHOUSE POSITIVE (Negative)
[2022-04-18] MEDS: Sulfamethox/Trimeth 800/160 TABLET 1 TAB PO (08:45)
[2022-04-18] MEDS: Bictegrav/Emtricit/Tenofov Ala TABLET 1 TAB PO (08:45)
[2022-04-18 09:00] LABS: Basophils Percent Auto 1.1 % (0-2); Eosinophils Absolute Auto 0.2 X10*3/uL (0.0-0.4); Hematocrit 31.9 % (42.0-52.0); Hemoglobin 10.4 g/dl (14.0-18.0); Imm Gran Abs Auto 0.05 X10*3/uL (0.00-0.03); Imm Gran Pct Auto 1.9 % (0.0-0.4); Lymphocytes Absolute Auto 0.5 X10*3/uL (1.2-4.9); Lymphocytes Percent Auto 19.2 % (20-40); MANUAL DIFF FLAG SCAN; Mean Corpuscular HGB Conc 32.6 g/dl (31.0-36.0); Mean Corpuscular Volume 91.9 fL (80.0-98.0); Mean Platelet Volume 12.2 fL (9.4-12.4); Monocytes Absolute Auto 0.3 X10*3/uL (0.1-1.2); Monocytes Percent Auto 11.7 % (2-11); Neutrophils Absolute Auto 1.6 x10*3/uL (2.0-8.3); Neutrophils Percent Auto 60.1 % (45-73); Platelet Count 109 X10*3/uL (160-400); Red Blood Count 3.47 X10*6/uL (4.60-5.80); Red Cell Distribution Width 14.6 % (11.0-16.0); SCAN SMEAR FLAG 1; White Blood Count 2.7 X10*3/uL (4.8-10.8)
[2022-04-18 09:14] LABS: Alanine Aminotransferase 19 U/L (0-40); Alkaline Phosphatase 78 U/L (39-117); Anion Gap 15 (12-20); Aspartate Amino Transferase 53 U/L (5-37); Bilirubin Total 0.3 mg/dL (0.0-1.0); Blood Urea Nitrogen 15 mg/dL (9-16); Calcium 8.3 mg/dL (8.4-10.2); Carbon Dioxide 24 mmol/L (22-29); Chloride 105 mmol/L (96-108); Creatinine Clr Calc Pharmacy 75.3; Estimated Glomerular Filt Rate > 60; Glucose Random 89 mg/dL (60-115); Potassium 4.5 mmol/L (3.3-5.1); Sodium 139 mmol/L (135-145); Total Protein 7.8 g/dL (6.5-8.0)
[2022-04-18 09:19] LABS: Lactate Dehydrogenase 347 U/L (118-273)
--- NOTE | 2022-04-18 09:39 | HO.PSYCHPN ---
Subjective Subjective Date of Service: 04/18/22 Reason For Visit: psychosis Interim History: Patient developed fever and cough COVID positive Hospitalist consulted, lab works ordered including blood cultures, TB test; chest x-ray pending. Discussed case with Dr. Neville Who is following and will add prophylactic antibiotics Of note patient has had some falls, hitting his knees only but appears to be in weekend condition. Will consult with PT as well. Mental Status Exam Mental Status Exam Narrative: Pt is alert and oriented; behavior is cooperative but distracted; patient is not in distress; lying under covers; disheveled, Cachectic; affect blunted; eye contact appropriate; Speech is normal rate, volume and prosody and not pressured; psychomotor retardation present; thought process can be goal oriented but tangential and disjointed too; Thought content is on discharge; thinks his Aunt gave him HIV; difficult to engage; ; can be pertinent to relevant topics; denies any SI/HI; Patient appears internally preoccupied. Patients insight and judgment are impaired Diagnostics Vital Signs (24Hr): Vital Signs - 24 hr 04/17/22 18:00 04/18/22 05:19 04/18/22 05:46 Temperature 98.6 F 101.5 F H 101.1 F H Pulse Rate 68 112 H Respiratory Rate 16 20 Blood Pressure 128/82 111/65 Pulse Oximetry 98 96 Oxygen Delivery Method Room Air Room Air 04/18/22 08:00 Temperature 99.5 F Pulse Rate 118 H Respiratory Rate 20 Blood Pressure 118/78 Pulse Oximetry 95 Oxygen Delivery Method Room Air BMI result Body Mass Index 15.4 Labs Results: 04/18/22 08:44 04/18/22 08:44 Labs: Laboratory Results - last 48 hr 04/11/22 04/14/22 04/14/22 15:35 09:11 09:11 WBC RBC Hgb Hct MCV MCH MCHC RDW Plt Count MPV Sodium Potassium Chloride Carbon Dioxide Anion Gap BUN Creatinine Estim Creat Clear Calc Estimated GFR Random Glucose Calcium Ionized Calcium Total Bilirubin AST ALT Alkaline Phosphatase Lactate Dehydrogenase Total Protein Albumin Lymphocyte Subset Cmmnt TNP Total Lymphocytes 256 L % CD3 Cells 85 Absolute CD3 Count 217 L % CD4 Cells 6 L Absolute CD4 Count <20 L CD4/CD8 Ratio 0.08 L % CD8 Cells 75 H Absolute CD8 Count 192 HIV-1 Antibody SEE NOTE HIV-1 RNA copies/mL 1121465 H HIV-1 RNA logcopies/mL 6.05 H HIV-1 RNA, Qual (TMA) SEE NOTE HIV-2 Antibody SEE NOTE Influenza Type A (PCR) Influenza Type B (PCR) RSV RNA Qual (PCR) SARS-CoV-2 RNA (RT-PCR) 04/15/22 04/15/22 04/18/22 11:22 11:22 06:10 WBC RBC Hgb Hct MCV MCH MCHC RDW Plt Count MPV Sodium Potassium Chloride Carbon Dioxide Anion Gap BUN Creatinine Estim Creat Clear Calc Estimated GFR Random Glucose Calcium Ionized Calcium 4.8 Cancelled Total Bilirubin AST ALT Alkaline Phosphatase Lactate Dehydrogenase Total Protein Albumin Lymphocyte Subset Cmmnt Total Lymphocytes % CD3 Cells Absolute CD3 Count % CD4 Cells Absolute CD4 Count CD4/CD8 Ratio % CD8 Cells Absolute CD8 Count HIV-1 Antibody HIV-1 RNA copies/mL HIV-1 RNA logcopies/mL HIV-1 RNA, Qual (TMA) HIV-2 Antibody Influenza Type A (PCR) Cancelled Influenza Type B (PCR) Cancelled RSV RNA Qual (PCR) Cancelled SARS-CoV-2 RNA (RT-PCR) Cancelled 04/18/22 04/18/22 04/18/22 06:45 08:44 08:44 WBC 2.7 L RBC 3.47 L Hgb 10.4 L Hct 31.9 L MCV 91.9 MCH 30.0 MCHC 32.6 RDW 14.6 Plt Count 109 L MPV 12.2 Sodium Potassium Chloride Carbon Dioxide Anion Gap BUN Creatinine Estim Creat Clear Calc Estimated GFR Random Glucose Calcium Ionized Calcium Total Bilirubin AST ALT Alkaline Phosphatase Lactate Dehydrogenase 347 H Total Protein Albumin Lymphocyte Subset Cmmnt Total Lymphocytes % CD3 Cells Absolute CD3 Count % CD4 Cells Absolute CD4 Count CD4/CD8 Ratio % CD8 Cells Absolute CD8 Count HIV-1 Antibody HIV-1 RNA copies/mL HIV-1 RNA logcopies/mL HIV-1 RNA, Qual (TMA) HIV-2 Antibody Influenza Type A (PCR) NEGATIVE Influenza Type B (PCR) NEGATIVE RSV RNA Qual (PCR) NEGATIVE SARS-CoV-2 RNA (RT-PCR) POSITIVE A 04/18/22 08:44 WBC RBC Hgb Hct MCV MCH MCHC RDW Plt Count MPV Sodium 139 Potassium 4.5 Chloride 105 Carbon Dioxide 24 Anion Gap 15 BUN 15 Creatinine 0.88 Estim Creat Clear Calc 75.3 Estimated GFR > 60 Random Glucose 89 Calcium 8.3 L Ionized Calcium Total Bilirubin 0.3 AST 53 H ALT 19 Alkaline Phosphatase 78 Lactate Dehydrogenase Total Protein 7.8 Albumin 3.0 L Lymphocyte Subset Cmmnt Total Lymphocytes % CD3 Cells Absolute CD3 Count % CD4 Cells Absolute CD4 Count CD4/CD8 Ratio % CD8 Cells Absolute CD8 Count HIV-1 Antibody HIV-1 RNA copies/mL HIV-1 RNA logcopies/mL HIV-1 RNA, Qual (TMA) HIV-2 Antibody Influenza Type A (PCR) Influenza Type B (PCR) RSV RNA Qual (PCR) SARS-CoV-2 RNA (RT-PCR) Imaging Radiology Impressions: ITS Impressions Chest X-Ray 04/09/22 21:00 IMPRESSION: No acute intrathoracic disease. Chest X-Ray 04/18/22 21:00 IMPRESSION: Subtle asymmetric hazy opacification the right upper lobe, a component which may be projectional however, appears mildly more pronounced compared the previous study and underlying infiltrates cannot be excluded. Medications Medications Current Medications Acetaminophen (Acetaminophen 325 Mg Tablet) 650 mg PO Q6H PRN PRN Reason: mild pain; fever Al Hydroxide/Mg Hydroxide (Magnesium Hydrox/Alum Hydrox 30 Ml Oral.Susp) 30 ml PO Q6H PRN PRN Reason: Heartburn/Nausea Bictegravir/Emtricitabine/Tenofovir (Bictegrav/Emtricit/Tenofov Ala Tablet) 1 tab PO DAILY NINA Last Admin: 04/18/22 08:45 Dose: 1 tab Diphenhydramine HCl (Diphenhydramine Hcl 25 Mg Tablet) 50 mg PO Q4H PRN PRN Reason: agitation Haloperidol (Haloperidol 5 Mg Tablet) 5 mg PO Q4H PRN PRN Reason: agitation Hydroxyzine HCl (Hydroxyzine Hcl 25 Mg Tablet) 25 mg PO Q6H PRN PRN Reason: Anxiety Last Admin: 04/14/22 11:54 Dose: 25 mg Remdesivir 200 mg/ Sodium (Chloride) 210 mls @ 105 mls/hr IV ONCE ONE Stop: 04/18/22 10:59 Remdesivir 100 mg/ Sodium (Chloride) 230 mls @ 115 mls/hr IV Q24H NINA Stop: 04/20/22 10:59 Ibuprofen (Ibuprofen 600 Mg Tablet) 600 mg PO Q8H PRN PRN Reason: Pain, Mild (Pain Scale 1-3) Last Admin: 04/17/22 08:35 Dose: 600 mg Lorazepam (Lorazepam 1 Mg Tablet) 2 mg PO Q4H PRN PRN Reason: agitation Magnesium Hydroxide (Milk Of Magnesia 30 Ml Oral.Susp) 30 ml PO DAILY PRN PRN Reason: Constipation Multi-Ingred Cream/Lotion/Oil/Oint (Mineral Oil/Petrolatum,White 106 Gm Tube) 1 appl TOPICAL TID NINA; Protocol Last Admin: 04/18/22 08:46 Dose: Not Given Nicotine Polacrilex (Nicotine Polacrilex 2 Mg Gum) 4 mg BUCCAL Q2H PRN PRN Reason: Nicotine Cravings Olanzapine (Olanzapine 7.5 Mg Tablet) 15 mg PO BEDTIME NINA Last Admin: 04/17/22 19:40 Dose: 15 mg Trazodone HCl (Trazodone Hcl 50 Mg Tablet) 50 mg PO BEDTIME PRN PRN Reason: Insomnia Last Admin: 04/16/22 20:04 Dose: 50 mg Trimethoprim/Sulfamethoxazole (Sulfamethox/Trimeth 800/160 Tablet) 1 tab PO DAILY NINA Last Admin: 04/18/22 08:45 Dose: 1 tab Allergies Allergies Allergy/AdvReac Type Severity Reaction Status Date / Time amoxicillin [AMOXICILLIN] Allergy Intermediate HIVES Verified 01/13/22 01:51 clindamycin [CLINDAMYCIN] Allergy Mild RASH Verified 01/13/22 01:52 Penicillins [PENICILLINS] Allergy Unknown HIVES Verified 01/13/22 01:52 shellfish derived Allergy Hives Verified 06/15/20 18:21 shrimp Allergy Hives Verified 06/15/20 18:21 Assessment & Plan Assessment & Plan (1) Positive laboratory testing for human immunodeficiency virus: Status: Acute Code(s): Z21 - Asymptomatic human immunodeficiency virus [HIV] infection status Assessment and Plan: Screening test is positive for HIV preliminary and final testing is pending This diagnosis would explain seborrheic dermatitis and B12 deficiency and pancytopenia. He denies IVDU but not certain of sexual exposure. (2) B12 deficiency: Status: Acute Code(s): E53.8 - Deficiency of other specified B group vitamins (3) Pancytopenia: Status: Acute Code(s): D61.818 - Other pancytopenia (4) Chronic schizophrenia: Status: Acute Code(s): F20.9 - Schizophrenia, unspecified Plan Patient is 34-year-old male with history of psychotic illness who presents for bizarre behaviors, aggressive towards family making homicidal threats.? Patient is a limited historian; he is dishevelled and cachectic, weighing only about 96 lbs. Patient has minimal insight; has some bizarre and paranoid delusions.? It has been reported he was making homicidal threats to his family although he denies this. Patient is amenable to being on the unit and to restarting Zyprexa. 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 Talha Jaquez. Will admit for safety and medication management 04/12 remains delusional; does not believe veracity of HIV labwork 04/13 delusional, disorganzized, no insight. 04/16 Accepts that he has HIV; still disorganized; still limited and poor insight.? Keeps to himself mostly.? Wants to discharge to a residential.? Patient is open to receiving treatment for HIV.? Dietitian consult had been ordered but does not look like he has been seen yet. 04/17 Remains unchanged, blunted, poor insight; says he is Alright Patient looks frail; lab work reveals AIDS; Patient still wants to discharge Saturday; still remains open to treatment for HIV/aids 04/18 patient positive for COVID; chest x-ray reveals likely pneumonia and positive for sepsis; meets criteria for sepsis. Patient transferred to medical floor PLAN: CV? Q 15 minute checks Meets criteria for sepsis/ COVID POSITIVE; Likely right lobe pneumonia; transfered to medical floor 1.COVID POSITIVE; Moved isolation Dr. Neville consulted and following Hospitalist consult placed LDH elevated CXR suspicious for pneuomnia TB, blood cultures x2, UA pending reported that he feel a few times recently, hitting only his knees; likely a combination of chronic weakness/deconditioning/malnutrition + COVID infection Stat dietitian consult placed again ordered b12 level 1.1 Schizophrenia: Increase to Zyprexa 15 mg at bedtime? -RPR negative; TP antibody Negative (negative 2017 at [facility]) -mother provided some limited collateral which corroborated with what patient Report he said to his family -HIV contributory? 2. HIV+ -pancytopenia (Chronic; has outpatient bottom presser at [facility], Dr. Talha Jaquez; will reach out to see if can get info) -Dr. Neville consulted and following and has ordered follow up labs CD4 count/HIV viral load indicate AIDS Check Hepatitis C Notes from Dr Jaquez form 07/13/2021 in chart from [facility]. Sheyla vs Nataliya (integrase inhibitor combination with NRTI therapy) 3. Vascular calcifications? I spent minutes with the patient and/or on the patient floor today, greater than?50% of which was spent counseling/coordinating care. Patient educated on: medical condition Reason for contiued inpatient stay Substantial Risk for: inability to function
[2022-04-18 10:39] VITALS: BP 139/74; PULSE 96; RESP 18; TEMP 37.6; O2SAT 99
[2022-04-18 10:43] LABS: SLIDE REVIEW VERIFIED
[2022-04-18 11:04] LABS: Vitamin B12 368 pg/mL (200-900)
--- NOTE | 2022-04-18 12:11 | P.DS_ITS ---
DS: Providers Provider Date of Service: 04/18/22 Date of admission: 04/10/22 14:24 Date of discharge: 04/18/22 Primary care physician: Arline Glover MD Attending physician on admission: Farhan Delgado Consults: 04/10/22 15:40 Consult to Hematology / Oncology Routine Consulting Provider: Nilsa Muñoz Reason for consultation: chronic pancytopenia Has provider been notified: No 04/12/22 09:52 Consult to Infectious Diseases Routine Consulting Provider: Tatianna Neville Reason for consultation: HIV labs + Has provider been notified: No 04/18/22 05:55 Consult to Hospitalist Routine Consulting Provider: Hospitalist Reason For Exam: hiv+, pancytopenia; new onset fever/cough Attending physician on discharge: Farhan Delgado DS: Diagnosis Discharge Diagnosis (1) Positive laboratory testing for human immunodeficiency virus: Status: Acute (2) B12 deficiency: Status: Acute (3) Pancytopenia: Status: Inactive (4) Chronic schizophrenia: Status: Inactive DS: Medications Discharge Medications Home Medications: Previous Rx's Medication Instructions Recorded acetaminophen 325 mg tablet 650 mg PO Q6H PRN mild pain; fever 04/18/22 #0 tabs aluminum-magnesium hydroxide 200 30 ml PO Q6H PRN Heartburn/Nausea 04/18/22 mg-200 mg/5 mL oral suspension #0 mL (MAG-AL) bictegravir 50 mg-emtricitabine 1 tab PO DAILY #0 tabs 04/18/22 200 mg-tenofovir alafenam 25 mg tablet (Biktarvy) ibuprofen 600 mg tablet 600 mg PO Q8H PRN Pain, Mild (Pain 04/18/22 Scale 1-3) #0 tabs magnesium hydroxide 400 mg/5 mL 30 ml PO DAILY PRN Constipation #0 04/18/22 oral suspension (Milk of Magnesia) mL olanzapine 7.5 mg tablet 15 mg PO BEDTIME #0 tabs 04/18/22 sulfamethoxazole 800 1 tab PO DAILY #0 tabs 04/18/22 mg-trimethoprim 160 mg tablet white petrolatum-mineral oil 1 appl topical TID #0 grams 04/18/22 topical cream (Dermacerin topical cream) Mental Status Exam Mental Status Exam Narrative: Pt is alert and oriented; behavior distracted; patient is not in distress; lying under covers; disheveled, Cachectic; affect blunted; eye contact appropriate; Speech is sparse; psychomotor retardation present; thought process can be goal oriented but tangential and disjointed too; difficult to engage; no SI/HI; Patient appears internally preoccupied. Patients insight and judgment are impaired Data Data Completed and Pending Completed studies during hospitalization [Text1]: 04/11/22 04/11/22 04/11/22 15:35 15:35 15:35 WBC RBC Hgb Hct MCV MCH MCHC RDW Plt Count MPV Immature Gran % (Auto) Neut % (Auto) Lymph % (Auto) [place] % (Auto) Eos % (Auto) Baso % (Auto) Lymph # (Auto) [place] # (Auto) Eos # (Auto) Baso # (Auto) Abs Immat Gran (auto) Absolute Neuts (auto) Absolute Nucleated RBC Nucleated RBC % (auto) Smear Tech's Comments Sodium Potassium Chloride Carbon Dioxide Anion Gap BUN Creatinine Estim Creat Clear Calc Estimated GFR Random Glucose Calcium Ionized Calcium Phosphorus Magnesium Total Bilirubin AST ALT Alkaline Phosphatase Lactate Dehydrogenase Total Protein Albumin Vitamin B12 Lymphocyte Subset Cmmnt Total Lymphocytes % CD3 Cells Absolute CD3 Count % CD4 Cells Absolute CD4 Count CD4/CD8 Ratio % CD8 Cells Absolute CD8 Count T.pallidum Ab (EIA) Nonreactive Hepatitis C Ab (EIA) HIV-1 Antibody SEE NOTE HIV-1 RNA copies/mL HIV-1 RNA logcopies/mL HIV-1 RNA, Qual (TMA) SEE NOTE HIV-2 Antibody SEE NOTE HIV 1&2 Ab/P24 Ag 4thGn Reactive H Influenza Type A (PCR) Influenza Type B (PCR) RSV RNA Qual (PCR) SARS-CoV-2 RNA (RT-PCR) 04/14/22 04/14/22 04/14/22 09:11 09:11 09:11 WBC RBC Hgb Hct MCV MCH MCHC RDW Plt Count MPV Immature Gran % (Auto) Neut % (Auto) Lymph % (Auto) [place] % (Auto) Eos % (Auto) Baso % (Auto) Lymph # (Auto) [place] # (Auto) Eos # (Auto) Baso # (Auto) Abs Immat Gran (auto) Absolute Neuts (auto) Absolute Nucleated RBC Nucleated RBC % (auto) Smear Tech's Comments Sodium Potassium Chloride Carbon Dioxide Anion Gap BUN Creatinine Estim Creat Clear Calc Estimated GFR Random Glucose Calcium Ionized Calcium Phosphorus Magnesium Total Bilirubin AST ALT Alkaline Phosphatase Lactate Dehydrogenase Total Protein Albumin Vitamin B12 Lymphocyte Subset Cmmnt TNP Total Lymphocytes 256 L % CD3 Cells 85 Absolute CD3 Count 217 L % CD4 Cells 6 L Absolute CD4 Count <20 L CD4/CD8 Ratio 0.08 L % CD8 Cells 75 H Absolute CD8 Count 192 T.pallidum Ab (EIA) Nonreactive Hepatitis C Ab (EIA) HIV-1 Antibody HIV-1 RNA copies/mL [id number] H HIV-1 RNA logcopies/mL 6.05 H HIV-1 RNA, Qual (TMA) HIV-2 Antibody HIV 1&2 Ab/P24 Ag 4thGn Influenza Type A (PCR) Influenza Type B (PCR) RSV RNA Qual (PCR) SARS-CoV-2 RNA (RT-PCR) 04/14/22 04/15/22 04/15/22 09:11 11:22 11:22 WBC 7.8 RBC 4.03 L D Hgb 11.9 L D Hct 37.1 L D MCV 92.1 MCH 29.5 MCHC 32.1 RDW 14.7 Plt Count 114 L MPV 12.1 Immature Gran % (Auto) 1.8 H Neut % (Auto) 62.3 Lymph % (Auto) 13.4 L [place] % (Auto) 6.5 Eos % (Auto) 14.9 H Baso % (Auto) 1.1 Lymph # (Auto) 0.4 L [place] # (Auto) 0.2 Eos # (Auto) 0.4 Baso # (Auto) 0.0 Abs Immat Gran (auto) 0.05 H Absolute Neuts (auto) 1.7 L Absolute Nucleated RBC 0.000 Nucleated RBC % (auto) 0.0 Smear Tech's Comments Sodium Potassium Chloride Carbon Dioxide Anion Gap BUN Creatinine Estim Creat Clear Calc Estimated GFR Random Glucose Calcium Ionized Calcium 4.8 Phosphorus Magnesium Total Bilirubin AST ALT Alkaline Phosphatase Lactate Dehydrogenase Total Protein Albumin Vitamin B12 Lymphocyte Subset Cmmnt Total Lymphocytes % CD3 Cells Absolute CD3 Count % CD4 Cells Absolute CD4 Count CD4/CD8 Ratio % CD8 Cells Absolute CD8 Count T.pallidum Ab (EIA) Hepatitis C Ab (EIA) GRAYZONE HIV-1 Antibody HIV-1 RNA copies/mL HIV-1 RNA logcopies/mL HIV-1 RNA, Qual (TMA) HIV-2 Antibody HIV 1&2 Ab/P24 Ag 4thGn Influenza Type A (PCR) Influenza Type B (PCR) RSV RNA Qual (PCR) SARS-CoV-2 RNA (RT-PCR) 04/15/22 04/15/22 04/15/22 11:22 11:22 11:22 WBC RBC Hgb Hct MCV MCH MCHC RDW Plt Count MPV Immature Gran % (Auto) Neut % (Auto) Lymph % (Auto) [place] % (Auto) Eos % (Auto) Baso % (Auto) Lymph # (Auto) [place] # (Auto) Eos # (Auto) Baso # (Auto) Abs Immat Gran (auto) Absolute Neuts (auto) Absolute Nucleated RBC Nucleated RBC % (auto) Smear Tech's Comments Sodium Cancelled 142 Potassium Cancelled 4.3 Chloride Cancelled 108 Carbon Dioxide Cancelled 21 L Anion Gap Cancelled 17 BUN Cancelled 27 H D Creatinine Cancelled 1.07 Estim Creat Clear Calc Cancelled 61.9 Estimated GFR Cancelled > 60 Random Glucose Cancelled 91 Calcium Cancelled 8.5 D Ionized Calcium Cancelled Phosphorus 4.2 Magnesium 2.0 Total Bilirubin Cancelled 0.3 AST Cancelled 68 H ALT Cancelled 26 Alkaline Phosphatase Cancelled 66 Lactate Dehydrogenase Total Protein Cancelled 8.4 H D Albumin Cancelled 3.1 L Vitamin B12 Lymphocyte Subset Cmmnt Total Lymphocytes % CD3 Cells Absolute CD3 Count % CD4 Cells Absolute CD4 Count CD4/CD8 Ratio % CD8 Cells Absolute CD8 Count T.pallidum Ab (EIA) Hepatitis C Ab (EIA) HIV-1 Antibody HIV-1 RNA copies/mL HIV-1 RNA logcopies/mL HIV-1 RNA, Qual (TMA) HIV-2 Antibody HIV 1&2 Ab/P24 Ag 4thGn Influenza Type A (PCR) Influenza Type B (PCR) RSV RNA Qual (PCR) SARS-CoV-2 RNA (RT-PCR) 04/18/22 04/18/22 04/18/22 06:10 06:45 08:44 WBC 2.7 L RBC 3.47 L Hgb 10.4 L Hct 31.9 L MCV 91.9 MCH 30.0 MCHC 32.6 RDW 14.6 Plt Count 109 L MPV 12.2 Immature Gran % (Auto) 1.9 H Neut % (Auto) 60.1 Lymph % (Auto) 19.2 L [place] % (Auto) 11.7 H Eos % (Auto) 6.0 H Baso % (Auto) 1.1 Lymph # (Auto) 0.5 L [place] # (Auto) 0.3 Eos # (Auto) 0.2 Baso # (Auto) 0.0 Abs Immat Gran (auto) 0.05 H Absolute Neuts (auto) 1.6 L Absolute Nucleated RBC 0.000 Nucleated RBC % (auto) 0.0 Smear Tech's Comments VERIFIED Sodium Potassium Chloride Carbon Dioxide Anion Gap BUN Creatinine Estim Creat Clear Calc Estimated GFR Random Glucose Calcium Ionized Calcium Phosphorus Magnesium Total Bilirubin AST ALT Alkaline Phosphatase Lactate Dehydrogenase Total Protein Albumin Vitamin B12 Lymphocyte Subset Cmmnt Total Lymphocytes % CD3 Cells Absolute CD3 Count % CD4 Cells Absolute CD4 Count CD4/CD8 Ratio % CD8 Cells Absolute CD8 Count T.pallidum Ab (EIA) Hepatitis C Ab (EIA) HIV-1 Antibody HIV-1 RNA copies/mL HIV-1 RNA logcopies/mL HIV-1 RNA, Qual (TMA) HIV-2 Antibody HIV 1&2 Ab/P24 Ag 4thGn Influenza Type A (PCR) Cancelled NEGATIVE Influenza Type B (PCR) Cancelled NEGATIVE RSV RNA Qual (PCR) Cancelled NEGATIVE SARS-CoV-2 RNA (RT-PCR) Cancelled POSITIVE A 04/18/22 04/18/22 04/18/22 08:44 08:44 08:44 WBC RBC Hgb Hct MCV MCH MCHC RDW Plt Count MPV Immature Gran % (Auto) Neut % (Auto) Lymph % (Auto) [place] % (Auto) Eos % (Auto) Baso % (Auto) Lymph # (Auto) [place] # (Auto) Eos # (Auto) Baso # (Auto) Abs Immat Gran (auto) Absolute Neuts (auto) Absolute Nucleated RBC Nucleated RBC % (auto) Smear Tech's Comments Sodium 139 Potassium 4.5 Chloride 105 Carbon Dioxide 24 Anion Gap 15 BUN 15 Creatinine 0.88 Estim Creat Clear Calc 75.3 Estimated GFR > 60 Random Glucose 89 Calcium 8.3 L Ionized Calcium Phosphorus Magnesium Total Bilirubin 0.3 AST 53 H ALT 19 Alkaline Phosphatase 78 Lactate Dehydrogenase 347 H Total Protein 7.8 Albumin 3.0 L Vitamin B12 368 Lymphocyte Subset Cmmnt Total Lymphocytes % CD3 Cells Absolute CD3 Count % CD4 Cells Absolute CD4 Count CD4/CD8 Ratio % CD8 Cells Absolute CD8 Count T.pallidum Ab (EIA) Hepatitis C Ab (EIA) HIV-1 Antibody HIV-1 RNA copies/mL HIV-1 RNA logcopies/mL HIV-1 RNA, Qual (TMA) HIV-2 Antibody HIV 1&2 Ab/P24 Ag 4thGn Influenza Type A (PCR) Influenza Type B (PCR) RSV RNA Qual (PCR) SARS-CoV-2 RNA (RT-PCR) 04/18/22 08:44 Blood - Venous Blood Culture - Pending 04/18/22 08:44 Blood - Venous Blood Culture - Pending Imaging Diagnostic Imaging Impressions Chest X-Ray 04/09/22 21:00 IMPRESSION: No acute intrathoracic disease. Chest X-Ray 04/18/22 09:48 IMPRESSION: Subtle asymmetric hazy opacification the right upper lobe, a component which may be projectional however, appears mildly more pronounced compared the previous study and underlying infiltrates cannot be excluded. DS: Summary Hospital Course Hospital Course: HPI Patient is 34-year-old male with history of psychotic illness who presents for bizarre behaviors, aggressive towards family making homicidal threats.? Patient is a limited historian; he is dishevelled and cachectic, weighing only about 96 lbs. Patient has minimal insight; has some bizarre and paranoid delusions.? It has been reported he was making homicidal threats to his family although he denies this. 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 Talha Jaquez. Will admit for safety and medication management Hospital course: -Patient is amenable to being on the unit and to restarting Zyprexa 5 mg; patient agreed to continue titration is a getting up to 15 mg. -patient remained odd, keeping to himself; however he denied any HI towards his family at all, saying he is not thinking about them anymore and just wants to discharge to a residential. Continued to deny all psychiatric symptoms though seems internally preoccupied. -lab results show HIV positive; follow-up labs completed and patient meets criteria for AIDS; Infectious disease doc, Dr. Neville consulted and following, adding orders -remains delusional; initially does not believe veracity of HIV labwork but soon Accepts that he has HIV; still disorganized; still limited and poor insight.? Keeps to himself mostly.? Wants to discharge to a residential.? Patient is open to receiving treatment for HIV.?Patient cachectic but started eating more. Staff reported that he feel a few times on 04/17, hitting only his knees; likely a combination of chronic weakness/deconditioning/malnutrition + COVID infection which was discovered on 04/18. -0n 04/18 patient developed fever and cough and tested positive for COVID. chest x-ray reveals likely pneumonia and pt meets criteria for sepsis;? Patient transferred to medical floor Time spent discussing smoking cessation with patient: 3 to 10 minutes Status at Discharge Functional status at discharge: independent ambulation Overall status at discharge: patient is back to baseline Time Spent with Patient Time attestation: Total time spent providing and/or coordinating discharge services: Time spent: Less than 30 minutes Discharge Plan Discharge Anticipated Discharge Date/Time: 04/18/22 09:34 Patient Disposition: Xfer Other Discharge Diagnosis: Schizophrenia Referrals: Arline Glover MD [Primary Care Provider] - 1 Week Discharge Medications: No Action atovaquone [Mepron] 750 mg/5 mL Suspension 1,500 mg PO DAILY 30 Days Qty: 300 0RF Biktarvy 50-200-25 mg Tablet 1 tab PO DAILY 30 Days Qty: 30 0RF olanzapine 15 mg tablet 15 mg PO BEDTIME 30 Days Qty: 30 0RF prednisone 10 mg Tablet See Rx Instructions .ROUTE .COMPLEX 14 Days Qty: 35 0RF Rx Instructions: take 3 tabs for 7 more days, then take 2 tabs for 7 days and then stop taking clotrimazole 1 % Cream 1 appl topical BID 14 Days Qty: 15 0RF Protocol: Apply to: Apply to: both feet multivitamin [Daily-Dougie] Tablet 1 tab PO DAILY 30 Days Qty: 30 0RF levofloxacin 750 mg tablet 750 mg PO DAILY 2 Days Qty: 2 0RF Dermacerin Cream 1 appl topical TID PRN (Reason: dry skin) Qty: 454 0RF Protocol: Apply to: Apply to: face Discharge Orders: Discharge Order (Routine); Ordered 04/18/22 Ordered By: Farhan Delgado Diet: deferred Activity on Discharge: As tolerated Stand Alone Forms: Patient Portal Discharge page Care Plan Goals: Maintain mood and safe behaviors Take medications as prescribed Continue to pursue sobriety Practice coping skills Health Concerns: Mood stability and behaviors Sobriety COVID +/SEPSIS/immunocomprised state See problem list for further details Plan of Treatment: deferred to Medical team Assessment: Risk assessment at time of discharge: Patient has been observed closely by nursing and unit staff throughout admission; patient has not engaged in any behaviors that suggest dangerousness to self or others and has demonstrated appropriate behaviors and impulse control Discharge Date/Time: 04/18/22 14:02
--- NOTE | 2022-04-18 12:17 | P.EN_ITS ---
Event Note Date of Service: 04/18/22 Event Note: Pt seen and examined by hospitalist GENNARO. [place] [facility] [place] with [place] and new diagnosis of AIDS. See H&P acct [id number].
--- NOTE | 2022-04-18 12:17 | PM.EVENT ---
Event Note Date of Service: 04/18/22 Event Note: Pt seen and examined by hospitalist GENNARO. [place] [facility] [place] and new diagnosis of AIDS. See H&P acct [id number].
--- NOTE | 2022-04-18 12:28 | P.HPHOSP_ITS ---
History of Present Illness Date of Service: 04/18/22 Attending physician on admission: Iraida Harley Chief Complaint: cough, fever, chills 31 year old with HIV/AIDs with CD4 count <20 started on biktarvy yesterday and schizophrenia admitted to psychiatry for paranoia who is complaining of productive cough with green sputum production [facility] Medical History (Updated 04/17/22 @ 23:20 by Tatianna Neville MD) AIDS B12 deficiency No known health problems Pancytopenia Positive laboratory testing for human immunodeficiency virus Surgical History History of orchiectomy Social History Household Members: None Housing: Homeless Do you presently have visiting nurse or other home services: No Alcohol intake: never Patient Tobacco Use Status: Current everyday Tobacco user Tobacco use type: Cigarette Cigarette Packs Per Day: 0.5 Cigarettes Per Day: 10.0 Years Smoked: 10 e-Cigarette/Vaping Use: Former Use Second Hand Smoke Exposure: Yes Substance Use Type: Marijuana Advance Directives: No Advance Directives Information Provided: No service: No Sexual orientation: Straight/Heterosexual Meds Allergies Allergy/AdvReac Type Severity Reaction Status Date / Time amoxicillin [AMOXICILLIN] Allergy Intermediate HIVES Verified 01/13/22 01:51 clindamycin [CLINDAMYCIN] Allergy Mild RASH Verified 01/13/22 01:52 Penicillins [PENICILLINS] Allergy Unknown HIVES Verified 01/13/22 01:52 shellfish derived Allergy Hives Verified 06/15/20 18:21 shrimp Allergy Hives Verified 06/15/20 18:21 Active Medications: Current Medications Acetaminophen (Acetaminophen 325 Mg Tablet) 650 mg PO Q6H PRN PRN Reason: mild pain; fever Al Hydroxide/Mg Hydroxide (Magnesium Hydrox/Alum Hydrox 30 Ml Oral.Susp) 30 ml PO Q6H PRN PRN Reason: Heartburn/Nausea Bictegravir/Emtricitabine/Tenofovir (Bictegrav/Emtricit/Tenofov Ala Tablet) 1 tab PO DAILY NINA Last Admin: 04/18/22 08:45 Dose: 1 tab Diphenhydramine HCl (Diphenhydramine Hcl 25 Mg Tablet) 50 mg PO Q4H PRN PRN Reason: agitation Haloperidol (Haloperidol 5 Mg Tablet) 5 mg PO Q4H PRN PRN Reason: agitation Hydroxyzine HCl (Hydroxyzine Hcl 25 Mg Tablet) 25 mg PO Q6H PRN PRN Reason: Anxiety Last Admin: 04/14/22 11:54 Dose: 25 mg Remdesivir 100 mg/ Sodium (Chloride) 230 mls @ 115 mls/hr IV Q24H NINA Stop: 04/20/22 10:59 Ibuprofen (Ibuprofen 600 Mg Tablet) 600 mg PO Q8H PRN PRN Reason: Pain, Mild (Pain Scale 1-3) Last Admin: 04/17/22 08:35 Dose: 600 mg Lorazepam (Lorazepam 1 Mg Tablet) 2 mg PO Q4H PRN PRN Reason: agitation Magnesium Hydroxide (Milk Of Magnesia 30 Ml Oral.Susp) 30 ml PO DAILY PRN PRN Reason: Constipation Multi-Ingred Cream/Lotion/Oil/Oint (Mineral Oil/Petrolatum,White 106 Gm Tube) 1 appl TOPICAL TID NINA; Protocol Last Admin: 04/18/22 08:46 Dose: Not Given Nicotine Polacrilex (Nicotine Polacrilex 2 Mg Gum) 4 mg BUCCAL Q2H PRN PRN Reason: Nicotine Cravings Olanzapine (Olanzapine 7.5 Mg Tablet) 15 mg PO BEDTIME NINA Last Admin: 04/17/22 19:40 Dose: 15 mg Trazodone HCl (Trazodone Hcl 50 Mg Tablet) 50 mg PO BEDTIME PRN PRN Reason: Insomnia Last Admin: 04/16/22 20:04 Dose: 50 mg Trimethoprim/Sulfamethoxazole (Sulfamethox/Trimeth 800/160 Tablet) 1 tab PO DAILY NINA Last Admin: 04/18/22 08:45 Dose: 1 tab Physical Exam Vital Signs and Narrative: Vital Signs: Last Vital Signs Temp 99.6 F 04/18/22 10:39 Pulse 96 04/18/22 10:39 Resp 18 04/18/22 10:39 BP 139/74 04/18/22 10:39 Pulse Ox 99 04/18/22 10:39 O2 Del Method 04/18/22 10:39 BMI result Body Mass Index 15.4 Results Labs CBC and Chem 7: 04/18/22 08:44 04/18/22 08:44 Labs: Laboratory Results - last 24 hr 04/11/22 04/14/22 04/15/22 15:35 09:11 11:22 MCV MCH MCHC RDW Plt Count MPV Immature Gran % (Auto) Neut % (Auto) Lymph % (Auto) [place] % (Auto) Eos % (Auto) Baso % (Auto) Lymph # (Auto) [place] # (Auto) Eos # (Auto) Baso # (Auto) Abs Immat Gran (auto) Absolute Neuts (auto) Absolute Nucleated RBC Nucleated RBC % (auto) Smear Tech's Comments Anion Gap Estim Creat Clear Calc Estimated GFR Random Glucose Calcium Ionized Calcium 4.8 Total Bilirubin AST ALT Alkaline Phosphatase Lactate Dehydrogenase Total Protein Albumin Vitamin B12 HIV-1 Antibody SEE NOTE HIV-1 RNA copies/mL [id number] H HIV-1 RNA logcopies/mL 6.05 H HIV-1 RNA, Qual (TMA) SEE NOTE HIV-2 Antibody SEE NOTE Influenza Type A (PCR) Influenza Type B (PCR) RSV RNA Qual (PCR) SARS-CoV-2 RNA (RT-PCR) 04/18/22 04/18/22 04/18/22 06:10 06:45 08:44 MCV 91.9 MCH 30.0 MCHC 32.6 RDW 14.6 Plt Count 109 L MPV 12.2 Immature Gran % (Auto) 1.9 H Neut % (Auto) 60.1 Lymph % (Auto) 19.2 L [place] % (Auto) 11.7 H Eos % (Auto) 6.0 H Baso % (Auto) 1.1 Lymph # (Auto) 0.5 L [place] # (Auto) 0.3 Eos # (Auto) 0.2 Baso # (Auto) 0.0 Abs Immat Gran (auto) 0.05 H Absolute Neuts (auto) 1.6 L Absolute Nucleated RBC 0.000 Nucleated RBC % (auto) 0.0 Smear Tech's Comments VERIFIED Anion Gap Estim Creat Clear Calc Estimated GFR Random Glucose Calcium Ionized Calcium Total Bilirubin AST ALT Alkaline Phosphatase Lactate Dehydrogenase Total Protein Albumin Vitamin B12 HIV-1 Antibody HIV-1 RNA copies/mL HIV-1 RNA logcopies/mL HIV-1 RNA, Qual (TMA) HIV-2 Antibody Influenza Type A (PCR) Cancelled NEGATIVE Influenza Type B (PCR) Cancelled NEGATIVE RSV RNA Qual (PCR) Cancelled NEGATIVE SARS-CoV-2 RNA (RT-PCR) Cancelled POSITIVE A 04/18/22 04/18/22 04/18/22 08:44 08:44 08:44 MCV MCH MCHC RDW Plt Count MPV Immature Gran % (Auto) Neut % (Auto) Lymph % (Auto) [place] % (Auto) Eos % (Auto) Baso % (Auto) Lymph # (Auto) [place] # (Auto) Eos # (Auto) Baso # (Auto) Abs Immat Gran (auto) Absolute Neuts (auto) Absolute Nucleated RBC Nucleated RBC % (auto) Smear Tech's Comments Anion Gap 15 Estim Creat Clear Calc 75.3 Estimated GFR > 60 Random Glucose 89 Calcium 8.3 L Ionized Calcium Total Bilirubin 0.3 AST 53 H ALT 19 Alkaline Phosphatase 78 Lactate Dehydrogenase 347 H Total Protein 7.8 Albumin 3.0 L Vitamin B12 368 HIV-1 Antibody HIV-1 RNA copies/mL HIV-1 RNA logcopies/mL HIV-1 RNA, Qual (TMA) HIV-2 Antibody Influenza Type A (PCR) Influenza Type B (PCR) RSV RNA Qual (PCR) SARS-CoV-2 RNA (RT-PCR) Imaging Radiologist's Impressions: Impressions Chest X-Ray 04/18/22 09:48 IMPRESSION: Subtle asymmetric hazy opacification the right upper lobe, a component which may be projectional however, appears mildly more pronounced compared the previous study and underlying infiltrates cannot be excluded.
[2022-04-18] MEDS: Remdesivir 200 MG in 0.9 % Sodium Chloride 210 ML 105 MG IV (12:42)
== END 2022-04-18 14:02 | disposition other institution (70) | DRG 750 ==
LOC: HO.ED 04-10 00:10 → HO.PM5 04-10 14:45
PROVIDERS: Emergency Medicine; Internal Medicine; Psychiatry & Neurology Psychiatry; Admitting Provider Psychiatry & Neurology Psychiatry; Emergency Provider Emergency Medicine; PCP Internal Medicine; Visit Provider Psychiatry & Neurology Psychiatry
DX: F20.9 Schizophrenia, unspecified (principal); U07.1 COVID-19; R64 Cachexia; B20 Human immunodeficiency virus [HIV] disease; E53.8 Deficiency of other specified B group vitamins; Z68.1 Body mass index [BMI] 19.9 or less, adult; F17.210 Nicotine dependence, cigarettes, uncomplicated; Z71.6 Tobacco abuse counseling; Z91.013 Allergy to seafood; Z88.0 Allergy status to penicillin; Z88.1 Allergy status to other antibiotic agents; Z79.899 Other long term (current) drug therapy
CPT/HCPCS: 0241U; 36415; 71046; 80053; 80061; 80307; 82330; 82607; 82947; 83036; 83615; 83735; 84100; 85025; 86359; 86360; 86701; 86702; 86780; 86803; 87040; 87389; 87536; 87635; 93005; 99285; J0248

== ENCOUNTER 2022-04-18 14:04 | Inpatient (IN) | payer MEDICAID, SELFPAY ==
--- NOTE | 2022-04-18 12:43 | HE.PHANOTE ---
First dose of remdesevir 200 mg to be given prior to patient being transfer to medical floor. Order is on account [id number]. Confirmed with Dodie on M5 that she will administer prior to patient leaving M5. Maris Mccarthy, PharmD
--- NOTE | 2022-04-18 12:44 | PM.IMHP ---
History of Present Illness Date of Service: 04/18/22 Attending physician on admission: Iraida Harley Chief Complaint: cough, fever, chills 31 year old with HIV/AIDs with CD4 count <20 started on biktarvy yesterday and schizophrenia admitted to psychiatry for paranoia who is complaining of productive cough with green sputum production, chills, and fevers. The patient has tested positive for HIV/AIDs since admission with pancytopenia. Reports significant weight loss over jailyn last 10 months and general malaise. Has been seen by ID and started on bitarvy as above as well as bactrim for prophylaxis. He tested positive for COVID-19 and has received first dose of remdesivir. WBC 2.7, PLT 109. LDH 347. CXR with subtle hazy opacity in RUL more pronounced than previous study, underlying infiltrates cannot be excluded. Pt febrile 101.5 and tachycardic to 118. No hypotension or hypoxia. Pt to be admitted for COVID-19 pneumonia with sepsis with AIDs CD4 count <20. Denies rigors, n/v/diarrhea, sore throat, shortness of breath, palpitations, or chest pain. Review of Systems Review of Systems: General: +malaise, +fevers, +unintentional weight loss, +sweats/chills HEENT: +nasal congestion. No sore throat Cardiovascular: No chest pain, palpitations, or leg edema Respiratory: +cough. No shortness of breath, wheezing GI: No abdominal pain, nausea, vomiting, diarrhea, constipation, melena, hematochezia MSK: No myalgia Neuro: No headaches, weakness, paresthesias Skin: No rashes or lesions [facility] Medical History (Updated 04/18/22 @ 13:18 by CECILIA Koehler) AIDS B12 deficiency Pancytopenia Positive laboratory testing for human immunodeficiency virus Family History Mother HIV (human immunodeficiency virus infection) Father HIV (human immunodeficiency virus infection) Surgical History History of orchiectomy Social History Household Members: None Housing: Homeless Do you presently have visiting nurse or other home services: No Alcohol intake: never Patient Tobacco Use Status: Current everyday Tobacco user Tobacco use type: Cigarette Cigarette Packs Per Day: 0.5 Cigarettes Per Day: 10.0 Years Smoked: 10 e-Cigarette/Vaping Use: Former Use Second Hand Smoke Exposure: Yes Substance Use Type: Marijuana Advance Directives: No Advance Directives Information Provided: No service: No Sexual orientation: Straight/Heterosexual Meds Allergies Allergy/AdvReac Type Severity Reaction Status Date / Time amoxicillin [AMOXICILLIN] Allergy Intermediate HIVES Verified 01/13/22 01:51 clindamycin [CLINDAMYCIN] Allergy Mild RASH Verified 01/13/22 01:52 Penicillins [PENICILLINS] Allergy Unknown HIVES Verified 01/13/22 01:52 shellfish derived Allergy Hives Verified 06/15/20 18:21 shrimp Allergy Hives Verified 06/15/20 18:21 Active Medications: Current Medications Acetaminophen (Acetaminophen 325 Mg Tablet) 650 mg PO Q6H PRN PRN Reason: Pain, Mild (Pain Scale 1-3) Atovaquone (Atovaquone 750 Mg/5 Ml Oral.Susp) 1,500 mg PO DAILY [facility] Docusate Sodium (Docusate Sodium 100 Mg Capsule) 100 mg PO BID PRN PRN Reason: Constipation Enoxaparin Sodium (Enoxaparin Sodium 40 Mg/0.4 Ml Syringe) 40 mg SUBCUT Q24H [facility] Remdesivir 100 mg/ Sodium (Chloride) 230 mls @ 115 mls/hr IV Q24H [facility] Stop: 04/20/22 14:59 Levofloxacin (Levaquin) 750 mg in 150 mls @ 100 mls/hr IV Q24H [facility] Ondansetron HCl (Ondansetron Hcl 4 Mg/2 Ml Vial) 4 mg IVPUSH Q8H PRN PRN Reason: Nausea and Vomiting Pharmacy Consult (Consult Rx Perform Med Rec) 1 each MISCELLANE ONCE PRN PRN Reason: Consult order Prednisone (Prednisone 10 Mg Tablet) 30 mg PO BID [facility] Sodium Chloride (0.9 % Sodium Chloride Flush 3 Ml Syringe) 3 ml IVFLUSH QSHIFT [facility] Physical Exam Vital Signs and Narrative: Vital Signs: Last vitals 04/18/22 10:39 Temp: 99.6 (temporal) HR: 96 RR: 18 BP: 139/74 Pulse oximetry: 99% Constitutional - Awake and drowsy, cachectic appearing Eyes - PERRLA, EOMI Mouth/tongue- lips and tongue dry Neck: no adenopathy Cardiovascular - S1S2, RRR, No edema Respiratory - Normal lung expansion, Normal respiratory effort, No respiratory distress, CTA bilaterally Gastrointestinal - NT / ND; +BS; No rebound or guarding Extremities - no calf tenderness bilaterally, no swelling Musculoskeletal - Normal inspection, normal ROM Skin - Warm/Dry Neurological - Alert & oriented x3, CN II-XII in tact. 3/5 strength bue and ble Psychological - Appropriate affect Results Labs Labs: Laboratory Tests 04/14/22 04/14/22 04/18/22 09:11 09:11 06:45 WBC RBC Hgb Hct Plt Count Sodium Potassium Chloride Carbon Dioxide Anion Gap BUN Creatinine Estim Creat Clear Calc Estimated GFR Lactate Dehydrogenase Absolute CD4 Count <20 L HIV-1 RNA copies/mL [id number] H HIV-1 RNA logcopies/mL 6.05 H SARS-CoV-2 RNA (RT-PCR) POSITIVE A 04/18/22 04/18/22 04/18/22 08:44 08:44 08:44 WBC 2.7 L RBC 3.47 L Hgb 10.4 L Hct 31.9 L Plt Count 109 L Sodium 139 Potassium 4.5 Chloride 105 Carbon Dioxide 24 Anion Gap 15 BUN 15 Creatinine 0.88 Estim Creat Clear Calc 75.3 Estimated GFR > 60 Lactate Dehydrogenase 347 H Absolute CD4 Count HIV-1 RNA copies/mL HIV-1 RNA logcopies/mL SARS-CoV-2 RNA (RT-PCR) Imaging Radiologist's Impressions: EXAMINATION: XR CHEST CLINICAL INFORMATION: Fever, rule out pneumonia. COMPARISON: 04/09/2022 chest radiographs. TECHNIQUE: 2 views of the chest were obtained. FINDINGS: Subtle asymmetric hazy opacification is seen in the right upper lobe extending to the right apex. The left lung is clear. There are no pleural effusions. The heart and mediastinal structures are unremarkable. XR/XR chest 2V IMPRESSION: Subtle asymmetric hazy opacification the right upper lobe, a component which may be projectional however, appears mildly more pronounced compared the previous study and underlying infiltrates cannot be excluded. Assessment and Plan (1) Pneumonia due to COVID-19 virus: Status: Acute (2) AIDS: Status: Acute Plan 31 year old with HIV/AIDs with CD4 count <20 started on biktarvy yesterday and schizophrenia being admitted from psychiatry to medicine due to COVID-19 pneumonia with sepsis and new AIDS diagnosis. 1-Sepsis secondary to COVID-19 pneumonia -Pt febrile and tachycardic independent of fevers. -Leukopenia possibly related to sepsis. However, pancytopenic related to AIDS. No hypotension or hypoxia. Lactic acid ordered. Blood cultures pending -Pt dry appearing- LR ordered 100ml/hr -Discussed with ID. D/c bactrim. Initiate levaquin -Follow CBC 2-COVID-19 pneumonia -Continue remdesivir. Has received one dose, complete 3 days. Follow CMP, CBC -Prednisone 30mg BID -CXR with RUL opacity suspicious for infiltrate. Cover for bacterial infection with levaquin and mepron -Admit to [facility] 3-AIDS- CD4 count <200, undetectable here -Started on biktarvy yesterday. Continue -ID consulted DVt prophylaxis- lovenox Full code Pt requires inpt stay of at least 2 midnights for maangment of COVID-19 pneumonia with sepsis in pt with undetectable CD4 count at risk respiratory compromise and requiring IV antibiotics, IV remdesivir, and close monitoring. Quality Stroke Does the patient have a stroke diagnosis?: No VTE Prior VTE?: No VTE Risk Level:: Medical - moderate - high VTE Device Contraindication: Treatment Not Indicated VTE Drug Contraindication: N/A - Med Ordered
--- NOTE | 2022-04-18 12:48 | PHA.MEDREC ---
Pharmacy Consult ? Medication Reconciliation Pharmacy has completed the medication reconciliation. Patient transfered from . Utilized discharge summary. Maris Mccarthy, CaitieD
[2022-04-18 13:58] LABS: Lactic Acid 0.9 mmol/L (0.5-2.0)
--- NOTE | 2022-04-18 15:25 | MHC.CLN ---
Addendum entered by Gregoria Mix, AMANDA 04/19/22 10:42: PT IS MODERATELY MALNOURISHED PT IS MILDLY DEPLETED IN SUBCUTANEOUS FAT AND MUSCLE MASS, BMI 16.2 WITH 16% NONSIGNIFICANT WT LOSS X 2 YEARS WITH POOR PO INTAKE R/T PT'S PERSONAL DIET RESTRICTIONS/PREFERENCES SEE ALSO FULL CLINICAL NUTRITION ASSESSMENT Original Note: RE: CONSULT HT66 WT 95# IBW 142#+/-10% PT IS 67% IBW INDICATES SEVERELY UNDER WT FOR HT PREVIOUS WT HX REVEALS: CURRENT 43.4KG 45KG (12/29/21) NO SIGNIFICANT WT CHANGES 54KG (05/2020) -20% NON-SIGNIFICANT WT LOSS X 2 YEARS PT TYPICALLY REMAINS ON LOWER END OF IBW RANGE. NOTED CACHETIC PER MD ESTIMATED NUTRITION NEEDS: 1302KCALS, 52G PROTEIN, 1300ML FLUID LABS: 04/15/22 BUN 27, ALBUMIN 3.1 DIET RX: REGULAR-APPROPRIATE PT REPORTS HE IS EATING AT MEALS. REPORTS CAN NOT DRINK MILK RECOMMEND ADDING ENSURE PLUS HIGH PROTEIN TID WITH MEALS SUPPLEMENT IS LACTOSE FREE AND WILL PROVIDE 1050KCALS, 60GPROTEIN MONITOR PO INTAKE CLOSELY WEEKLY WEIGHTS
[2022-04-18 15:52] VITALS: BP 115/73; PULSE 90; RESP 15; TEMP 36.9; O2SAT 99
[2022-04-18] MEDS: Atovaquone 750 MG/5 ML ORAL.SUSP 1500 MG PO (16:23)
[2022-04-18] MEDS: predniSONE 10 MG TABLET 30 MG PO ×2 (16:23→20:46)
[2022-04-18] MEDS: 0.9 % Sodium Chloride Flush 3 ML SYRINGE IVFLUSH (16:24)
[2022-04-18] MEDS: Enoxaparin Sodium 40 MG/0.4 ML SYRINGE SUBCUT (16:24)
[2022-04-18] MEDS: levoFLOXacin/D5W 750 MG/150 ML PIGGYBACK 100 MG IV (16:25)
[2022-04-18] MEDS: Lactated Ringers 1,000 ML 100 ML IVCONT ×2 (16:25→20:47)
[2022-04-18 17:35] LABS: Appearance Urine Clear; Color Urine Yellow; Glucose Urine UA Negative (Negative); Leukocyte Esterase Urine Negative (Negative); Nitrite Urine Negative (Negative); PH 6.5 (5.0-9.0); Urine Blood Negative (Negative); Urine Ketones Negative (Negative); Urine Protein Trace mg/dL (Neg-Trace)
[2022-04-18 17:40] LABS: Bacteria Urine None Seen (None Seen); Hyaline Casts Urine 0-2 /LPF (0-2); RBC Urine 0-2 /HPF (0-2); Squamous Epithelial Cell Urine 0-2 /HPF (0-2); WBC Urine 0-5 /HPF (0-5)
--- NOTE | 2022-04-18 18:47 | PC.NURSE ---
Transferred from [facility] ( Covid positive, sepsis, infiltrate). Started on IV ABT and remdesivir, no adverse reaction noted. VSS, afebrile, no acute resp. distress noted. Will continue to monitor and treat per plan of care.
[2022-04-18 19:31] VITALS: BP 123/82; PULSE 101; RESP 18; TEMP 37; O2SAT 98
[2022-04-18] MEDS: OLANZapine 7.5 MG TABLET 15 MG PO (20:46)
[2022-04-18] MEDS: Mineral Oil/Petrolatum,White 106 GM Tube 1 APPL TOPICAL (20:47)
[2022-04-18 23:50] VITALS: BP 133/79; PULSE 78; RESP 18; TEMP 36.6; O2SAT 98
[2022-04-19 04:00] VITALS: BP 116/88; PULSE 89; RESP 20; TEMP 36.6; O2SAT 100
[2022-04-19 07:00] LABS: Hematocrit 30.8 % (42.0-52.0); Hemoglobin 9.7 g/dl (14.0-18.0); Mean Corpuscular HGB Conc 31.5 g/dl (31.0-36.0); Mean Corpuscular Hemoglobin 29.5 pg (27.0-33.0); Mean Corpuscular Volume 93.6 fL (80.0-98.0); Mean Platelet Volume 12.4 fL (9.4-12.4); Platelet Count 102 X10*3/uL (160-400); Red Blood Count 3.29 X10*6/uL (4.60-5.80); Red Cell Distribution Width 14.6 % (11.0-16.0)
[2022-04-19 07:04] LABS: WBC ABN SCTR FOR CBC 1
[2022-04-19 07:09] LABS: Partial Thromboplastin Time 33.1 SEC (26.0-36.4)
[2022-04-19 07:12] LABS: Alanine Aminotransferase 18 U/L (0-40); Albumin Level 2.8 g/dL (3.5-5.0); Alkaline Phosphatase 64 U/L (39-117); Anion Gap 14 (12-20); Aspartate Amino Transferase 47 U/L (5-37); Bilirubin Total 0.2 mg/dL (0.0-1.0); Blood Urea Nitrogen 16 mg/dL (9-16); Calcium 8.7 mg/dL (8.4-10.2); Carbon Dioxide 21 mmol/L (22-29); Chloride 109 mmol/L (96-108); Estimated Glomerular Filt Rate > 60; Glucose Random 180 mg/dL (60-115); Potassium 4.3 mmol/L (3.3-5.1); Sodium 140 mmol/L (135-145); Total Protein 7.4 g/dL (6.5-8.0)
[2022-04-19 07:46] VITALS: BP 107/76; PULSE 80; RESP 20; TEMP 36.6; O2SAT 90
[2022-04-19 07:56] LABS: Atypical Lymphs Percent Manual 4 % (0-6); Band Neutrophils Percent 1 % (3-5); Basophils Percent Manual 2 % (0-2); Lymphocytes Percent Manual 18 % (20-40); Monocytes Percent Manual 2 % (2-11); Neutrophils Percent Manual 73 % (45-73)
[2022-04-19 08:03] LABS: Platelet Estimate DECREASED (NORMAL); Platelet Morphology Comment NORMAL
[2022-04-19 08:06] LABS: Ovalocytes 1+ (5-14) /OIF; RBC Morphology NOTED
[2022-04-19 08:07] LABS: Atypical Lymph Absolute Manual 0.1 x10*3/uL; Lymphocytes Absolute Manual 0.2 X10*3/uL (1.2-4.9); White Blood Count 1.3 X10*3/uL (4.8-10.8)
[2022-04-19 08:27] VITALS: BMI 16.2
[2022-04-19] MEDS: Bictegrav/Emtricit/Tenofov Ala TABLET 1 TAB PO (08:44)
[2022-04-19] MEDS: predniSONE 10 MG TABLET 30 MG PO ×2 (08:44→21:38)
--- NOTE | 2022-04-19 09:28 | MHC.CM.PN ---
CM spoke with Patient via phone at room Extension [phone]. Patient is homeless and has been staying at a [facility] in [place]; plan is to return there once medically cleared for dc.(per Patient's Cousin/only Contact/Gold @ [phone], Patient cannot stay with him @ time of dc). MIGUEL has initiated and will follow for dc planning.Patient's PCP is Dr. Arline Glover and he has received [employer].
[2022-04-19 10:37] VITALS: BMI 16.2
[2022-04-19] MEDS: Atovaquone 750 MG/5 ML ORAL.SUSP 1500 MG PO (11:08)
[2022-04-19] MEDS: Mineral Oil/Petrolatum,White 106 GM Tube 1 APPL TOPICAL ×3 (11:08→21:38)
[2022-04-19 11:43] VITALS: BP 110/62; PULSE 72; RESP 20; TEMP 36.6; O2SAT 91
[2022-04-19] MEDS: Enoxaparin Sodium 40 MG/0.4 ML SYRINGE SUBCUT (13:02)
[2022-04-19] MEDS: Remdesivir 100 MG in 0.9 % Sodium Chloride 230 ML 115 MG IV (13:02)
--- NOTE | 2022-04-19 13:14 | P.PNIM_ITS ---
Subjective Subjective Date of Service: 04/19/22 Interval History: the patient was seen and evaluated this morning Laying in bed, feels improvement since yesterday No fever overnight Still feeling dyspnea on exertion and O2 sat around 90 on room No reported other overnight events. Systemic review: No fever, chills has generalized weakness No chest pain, palpitation Dyspnea with exertion No abdominal pain, nausea or vomiting No urinary symptoms No any rash or wounds Physical Exam Vital Signs: Vital Signs: Last Vital Signs Temp 98 F 04/19/22 11:43 Pulse 72 04/19/22 11:43 Resp 20 04/19/22 11:43 BP 110/62 04/19/22 11:43 Pulse Ox 91 L 04/19/22 11:43 O2 Del Method 04/19/22 11:43 BMI result Body Mass Index 16.2 Const: Other: Constitutional : Alert, oriented, not in distress Neck : Normal inspection, Supple Cardiovascular : RRR, no JVP, no lower extremity edema Respiratory : Decreased bilateral air entry, basal bilateral crackles, bilateral rhonchi Gastrointestinal: soft, lax, Normal bowel sounds, Non tender Skin : Warm, Dry Neurological : Alert & oriented x3, No focal deficit , CN 2-12 within normal Objective Data Active Medications Acetaminophen (Acetaminophen 325 Mg Tablet) 650 mg PO Q6H PRN PRN Reason: Pain, Mild (Pain Scale 1-3) Acetaminophen (Acetaminophen 325 Mg Tablet) 650 mg PO Q6H PRN PRN Reason: mild pain; fever Al Hydroxide/Mg Hydroxide (Magnesium Hydrox/Alum Hydrox 30 Ml Oral.Susp) 30 ml PO Q6H PRN PRN Reason: Heartburn/Nausea Atovaquone (Atovaquone 750 Mg/5 Ml Oral.Susp) 1,500 mg PO DAILY [facility] Last Admin: 04/19/22 11:08 Dose: 1,500 mg Documented By: JACOBO Bictegravir/Emtricitabine/Tenofovir (Bictegrav/Emtricit/Tenofov Ala Tablet) 1 tab PO DAILY [facility] Last Admin: 04/19/22 08:44 Dose: 1 tab Documented By: JACOBO Docusate Sodium (Docusate Sodium 100 Mg Capsule) 100 mg PO BID PRN PRN Reason: Constipation Enoxaparin Sodium (Enoxaparin Sodium 40 Mg/0.4 Ml Syringe) 40 mg SUBCUT Q24H [facility] Last Admin: 04/19/22 13:02 Dose: 40 mg Documented By: JACOBO Hydroxyzine HCl (Hydroxyzine Hcl 25 Mg Tablet) 25 mg PO Q6H PRN PRN Reason: Anxiety Remdesivir 100 mg/ Sodium (Chloride) 230 mls @ 115 mls/hr IV Q24H [facility] Stop: 04/20/22 14:59 Last Admin: 04/19/22 13:02 Dose: 115 mls/hr Documented By: JACOBO Levofloxacin (Levaquin) 750 mg in 150 mls @ 100 mls/hr IV Q24H [facility] Last Infusion: 04/18/22 18:37 Dose: 0 mls/hr Documented By: CARRIE Ibuprofen (Ibuprofen 600 Mg Tablet) 600 mg PO Q8H PRN PRN Reason: Pain, Mild (Pain Scale 1-3) Magnesium Hydroxide (Milk Of Magnesia 30 Ml Oral.Susp) 30 ml PO DAILY PRN PRN Reason: Constipation Multi-Ingred Cream/Lotion/Oil/Oint (Mineral Oil/Petrolatum,White 106 Gm Tube) 1 appl TOPICAL TID [facility]; Protocol Last Admin: 04/19/22 11:08 Dose: 1 appl Documented By: JACOBO Nicotine Polacrilex (Nicotine Polacrilex 2 Mg Gum) 4 mg BUCCAL Q2H PRN PRN Reason: Nicotine Cravings Olanzapine (Olanzapine 7.5 Mg Tablet) 15 mg PO BEDTIME [facility] Last Admin: 04/18/22 20:46 Dose: 15 mg Documented By: NATALIYA Ondansetron HCl (Ondansetron Hcl 4 Mg/2 Ml Vial) 4 mg IVPUSH Q8H PRN PRN Reason: Nausea and Vomiting Pharmacy Consult (Consult Rx Perform Med Rec) 1 each MISCELLANE ONCE PRN PRN Reason: Consult order Prednisone (Prednisone 10 Mg Tablet) 30 mg PO BID [facility] Last Admin: 04/19/22 08:44 Dose: 30 mg Documented By: JACOBO Sodium Chloride (0.9 % Sodium Chloride Flush 3 Ml Syringe) 3 ml IVFLUSH QSHIFT [facility] Last Admin: 04/19/22 10:21 Dose: Not Given Documented By: JACOBO Non-Admin Reason: IV Running Trazodone HCl (Trazodone Hcl 50 Mg Tablet) 50 mg PO BEDTIME PRN PRN Reason: Insomnia Labs CBC & Chem 7: 04/19/22 06:21 04/19/22 06:21 Labs: Laboratory Results - last 24 hr 04/18/22 04/18/22 04/19/22 13:33 16:20 06:21 MCV MCH MCHC RDW Plt Count MPV Immature Gran % (Auto) Neut % (Auto) Lymph % (Auto) [place] % (Auto) Eos % (Auto) Baso % (Auto) Lymph # (Auto) [place] # (Auto) Eos # (Auto) Baso # (Auto) Abs Immat Gran (auto) Absolute Neuts (auto) Absolute Nucleated RBC Nucleated RBC % (auto) Neutrophils % (Manual) Band Neutrophils % Lymphocytes % (Manual) Atypical Lymphs % (Man) Monocytes % (Manual) Basophils % (Manual) Abs Neuts (Manual) Lymphocytes # (Manual) Atyp Lymphs # (Manual) Platelet Estimate Plt Morphology Comment RBC Morphology Ovalocytes Smear Path Review APTT 33.1 Anion Gap Estim Creat Clear Calc Estimated GFR Random Glucose Lactic Acid 0.9 Calcium Total Bilirubin AST ALT Alkaline Phosphatase Total Protein Albumin Urine Color Yellow Urine Appearance Clear Urine pH 6.5 Ur Specific [place] 1.020 Urine Protein Trace Urine Glucose (UA) Negative Urine Ketones Negative Urine Blood Negative Urine Nitrite Negative Ur Leukocyte Esterase Negative Urine RBC 0-2 Urine WBC 0-5 Ur Squamous Epith Cells 0-2 Urine Bacteria None Seen Hyaline Casts 0-2 04/19/22 04/19/22 06:21 06:21 MCV 93.6 MCH 29.5 MCHC 31.5 RDW 14.6 Plt Count 102 L MPV 12.4 Immature Gran % (Auto) Cancelled Neut % (Auto) Cancelled Lymph % (Auto) Cancelled [place] % (Auto) Cancelled Eos % (Auto) Cancelled Baso % (Auto) Cancelled Lymph # (Auto) Cancelled [place] # (Auto) Cancelled Eos # (Auto) Cancelled Baso # (Auto) Cancelled Abs Immat Gran (auto) Cancelled Absolute Neuts (auto) Cancelled Absolute Nucleated RBC 0.000 Nucleated RBC % (auto) 0.0 Neutrophils % (Manual) 73 Band Neutrophils % 1 L Lymphocytes % (Manual) 18 L Atypical Lymphs % (Man) 4 Monocytes % (Manual) 2 Basophils % (Manual) 2 Abs Neuts (Manual) 1.0 L Lymphocytes # (Manual) 0.2 L Atyp Lymphs # (Manual) 0.1 Platelet Estimate DECREASED Plt Morphology Comment NORMAL RBC Morphology NOTED Ovalocytes 1+ (5-14) Smear Path Review SEE NOTE APTT Anion Gap 14 Estim Creat Clear Calc TNP Estimated GFR > 60 Random Glucose 180 H D Lactic Acid Calcium 8.7 Total Bilirubin 0.2 AST 47 H ALT 18 Alkaline Phosphatase 64 Total Protein 7.4 Albumin 2.8 L Urine Color Urine Appearance Urine pH Ur Specific [place] Urine Protein Urine Glucose (UA) Urine Ketones Urine Blood Urine Nitrite Ur Leukocyte Esterase Urine RBC Urine WBC Ur Squamous Epith Cells Urine Bacteria Hyaline Casts Assessment and Plan (1) Pneumonia due to COVID-19 virus: Status: Acute (2) COVID-19: Status: Acute (3) Pancytopenia: Status: Acute Plan 31 year old with HIV/AIDs with CD4 count <20 started on biktarvy yesterday and schizophrenia being admitted from psychiatry to medicine due to COVID-19 pneumonia with sepsis and new AIDS diagnosis. - Sepsis secondary to COVID-19 with concern of superimposed bacterial pneumonia Sepsis resolved Blood cultures pending DC fluids Continue Levaquin and Mepron Continue prednisone 30 mg b.i.d. Started on remdesivir by ID Id suggested DC Bactrim for now Follow CBC -AIDS CD4 count <200, undetectable here Continue biktarvy ID evaluated the patient and started Biktarvy, pending new consult - schizophrenia Being followed by Psychiatry team for transfer, doing fairly okay next Lyme continue current medications - pancytopenia Secondary to malnutrition, chronic HIV infection give supplement and advised to increase oral intake To follow CBC DVt prophylaxis- lovenox Full code Patient will need overnight hospital stay for treatment of COVID-19 pneumonia with sepsis in pt with aids at risk respiratory compromise severe sepsis requiring IV antibiotics, IV remdesivir, and close monitoring. Quality Stroke Does the patient have a stroke diagnosis?: No VTE Prior VTE?: No VTE Risk Level:: Medical - moderate - high VTE Device Contraindication: Treatment Not Indicated VTE Drug Contraindication: N/A - Med Ordered
[2022-04-19] MEDS: levoFLOXacin/D5W 750 MG/150 ML PIGGYBACK 100 MG IV (14:06)
[2022-04-19 15:31] VITALS: BP 117/81; PULSE 97; RESP 18; TEMP 36.9; O2SAT 99
[2022-04-19] MEDS: 0.9 % Sodium Chloride Flush 3 ML SYRINGE IVFLUSH (15:48)
[2022-04-19 19:17] VITALS: BP 122/71; PULSE 97; RESP 19; TEMP 37.1; O2SAT 99
[2022-04-19] MEDS: OLANZapine 7.5 MG TABLET 15 MG PO (21:37)
[2022-04-19 23:33] VITALS: BP 109/79; PULSE 93; RESP 18; TEMP 36.9; O2SAT 99
[2022-04-20] MEDS: 0.9 % Sodium Chloride Flush 3 ML SYRINGE IVFLUSH ×4 (03:18→21:55)
[2022-04-20 04:00] VITALS: BP 122/82; PULSE 79; RESP 18; O2SAT 99
[2022-04-20] MEDS: Ibuprofen 600 MG TABLET PO (04:11)
[2022-04-20 06:45] LABS: Hematocrit 30.9 % (42.0-52.0); Mean Corpuscular HGB Conc 32.4 g/dl (31.0-36.0); Mean Corpuscular Hemoglobin 29.6 pg (27.0-33.0); Mean Corpuscular Volume 91.4 fL (80.0-98.0); Mean Platelet Volume 11.7 fL (9.4-12.4); Platelet Count 128 X10*3/uL (160-400); Red Blood Count 3.38 X10*6/uL (4.60-5.80); Red Cell Distribution Width 14.6 % (11.0-16.0); White Blood Count 4.5 X10*3/uL (4.8-10.8)
[2022-04-20 06:59] LABS: Anion Gap 14 (12-20); Blood Urea Nitrogen 20 mg/dL (9-16); Carbon Dioxide 20 mmol/L (22-29); Chloride 112 mmol/L (96-108); Creatinine Clr Calc Pharmacy 85.3; Estimated Glomerular Filt Rate > 60; Glucose Random 202 mg/dL (60-115); Potassium 4.8 mmol/L (3.3-5.1); Sodium 141 mmol/L (135-145)
[2022-04-20 07:23] LABS: C Reactive Protein 0.96 mg/dL (< or = 0.50)
[2022-04-20 07:38] VITALS: BP 112/76; PULSE 85; RESP 18; TEMP 36.7; O2SAT 99
[2022-04-20 08:11] LABS: Lactate Dehydrogenase 267 U/L (118-273)
[2022-04-20] MEDS: predniSONE 10 MG TABLET 30 MG PO ×2 (09:40→21:54)
[2022-04-20] MEDS: Bictegrav/Emtricit/Tenofov Ala TABLET 1 TAB PO (09:40)
[2022-04-20] MEDS: Atovaquone 750 MG/5 ML ORAL.SUSP 1500 MG PO (09:40)
[2022-04-20] MEDS: Mineral Oil/Petrolatum,White 106 GM Tube 1 APPL TOPICAL ×2 (09:46→21:55)
[2022-04-20 11:07] VITALS: BP 112/79; PULSE 95; RESP 19; TEMP 36.7; O2SAT 99
--- NOTE | 2022-04-20 12:12 | MHC.CARE ---
Pt has Archiver's. JUAN felder completed
[2022-04-20] MEDS: Enoxaparin Sodium 40 MG/0.4 ML SYRINGE SUBCUT (12:43)
[2022-04-20] MEDS: Remdesivir 100 MG in 0.9 % Sodium Chloride 230 ML 115 MG IV (12:43)
--- NOTE | 2022-04-20 13:10 | P.CDIC_ITS ---
CDI Concurrent Query Documentation Clarification: PHYSICIAN'S DOCUMENTATION REQUEST Date of Query: 04/20/22 1311 Patient Name: Stepan Berg Admit Date: 04/18/22 Dear Doctor, A review of the medical record indicates additional documentation may be needed. Please review below and update the documentation accordingly. Clinical Indicators: Documentation includes the diagnosis of malnutrition. Additional clinical indicators from the record include: Risk Factors/Clinical Indicators/Treatments Clinical Biostatistics Director progress note 04/18/22: PT IS MODERATELY MALNOURISHED PT IS MILDLY DEPLETED IN SUBCUTANEOUS FAT AND MUSCLE MASS, BMI 16.2 WITH 16% NONSIGNIFICANT WT LOSS X 2 YEARS WITH POOR PO INTAKE R/T PT'S PERSONAL DIET RESTRICTIONS/PREFERENCES SEE ALSO FULL CLINICAL NUTRITION ASSESSMENT [facility] Criteria* Acute Illness Chronic Illness Clinical Characteristic Non-Severe (2 or more criteria present) Severe (2 or more criteria present) Non-Severe (2 or more criteria present) Severe (2 or more criteria present) Energy Intake <75% for >7 days <=50% for >=5 days <75% for >=1 month <=75% for >=1 month Weight Loss 1 week 1 ? 2% >2% N/A N/A 1 month 5% >5% 5% >5% 3 months 7.5 % >7.5% 7.5% >7.5% 6 months N/A N/A 10% >10% 1 year N/A N/A 20% >20% Body Fat Mild Moderate Mild Severe Muscle Mass Mild Moderate Mild Severe Fluid Accumulation Mild Moderate to Severe Mild Severe Reduced [employer] Strength N/A Measurably Reduced N/A Measurably Reduced *[facility] Hospitalist, 2017 If possible, please provide in your progress notes, additional specificity regarding the severity of the malnutrition using the above information: * Mild * Moderate * Severe * Other (please specify) * Unable to determine Use of terms such as suspected, likely, concern for, or probable (associated with a specific diagnosis that is being evaluated, monitored, or treated as if it exists) are acceptable and can be coded in the inpatient setting, when documented at the time of discharge. Thank you, Ramonita Batres RN Extension: [phone] Please use your independent medical judgment in providing your response. THIS QUERY IS PART OF THE PERMANENT MEDICAL RECORD Provider Response: Moderate Protein-Calorie Malnutrition
[2022-04-20] MEDS: levoFLOXacin/D5W 750 MG/150 ML PIGGYBACK 100 MG IV (14:00)
--- NOTE | 2022-04-20 14:34 | MHC.CLN ---
F/U PT IS MODERATELY MALNOURISHED SEE FULL CLINICAL NUTRITION ASSESSMENT DATED 04/19/22 PO INTAKE 100% X 4 MEALS DIET RX: REGULAR-APPROPRIATE PT RECEIVING ENSURE PLUS HIGH PROTEIN TID WITH MEALS SUPPLEMENT WILL PROVIDE 1050KCALS, 60GPROTEIN MONITOR PO INTAKE CLOSELY
--- NOTE | 2022-04-20 14:41 | MHC.CARE ---
Plan for admit to [facility]
--- NOTE | 2022-04-20 17:37 | PC.NURSE ---
pt has been observed ambulating in room alone, touching IV pumps, and disabling bed alarm. Pt educated regarding high fall risk protocols. Pt subsequently refused bed alarm.
[2022-04-20] MEDS: traZODone HCL 50 MG TABLET PO (21:54)
[2022-04-20] MEDS: OLANZapine 7.5 MG TABLET 15 MG PO (21:54)
[2022-04-20 23:52] VITALS: BP 132/94; PULSE 91; RESP 17; TEMP 36.2; O2SAT 97
[2022-04-21 03:21] VITALS: BP 128/81; PULSE 81; RESP 20; TEMP 36.4; O2SAT 98
[2022-04-21 08:00] VITALS: BP 134/84; PULSE 90; RESP 20; TEMP 36.1; O2SAT 98
--- NOTE | 2022-04-21 08:45 | MHC.CM.PN ---
PT MEDICALLY DISCHARGED AND AWAITING A BED ON [facility].
[2022-04-21] MEDS: 0.9 % Sodium Chloride Flush 3 ML SYRINGE IVFLUSH ×3 (10:30→20:24)
[2022-04-21] MEDS: Bictegrav/Emtricit/Tenofov Ala TABLET 1 TAB PO (10:30)
[2022-04-21] MEDS: Atovaquone 750 MG/5 ML ORAL.SUSP 1500 MG PO (10:30)
[2022-04-21] MEDS: predniSONE 10 MG TABLET 30 MG PO ×2 (10:30→20:24)
[2022-04-21 11:56] VITALS: BP 111/79; PULSE 110; RESP 20; TEMP 37.3; O2SAT 98
--- NOTE | 2022-04-21 12:55 | HO.PM.IMPN ---
Subjective Subjective Date of Service: 04/21/22 Interval History: the patient was seen and evaluated this morning Sitting in his chair, feeling more comfortable No fever overnight No reported other overnight events. Systemic review: No fever, chills has generalized weakness No chest pain, palpitation Dyspnea resolved No abdominal pain, nausea or vomiting No urinary symptoms No any rash or wounds Physical Exam Vital Signs: Vital Signs: Last Vital Signs Temp 99.1 F 04/21/22 11:56 Pulse 110 H 04/21/22 11:56 Resp 20 04/21/22 11:56 BP 111/79 04/21/22 11:56 Pulse Ox 98 04/21/22 11:56 O2 Del Method 04/21/22 11:56 BMI result Body Mass Index 16.2 Const: Other: Constitutional : Alert, oriented, not in distress Neck : Normal inspection, Supple Cardiovascular : RRR, no JVP, no lower extremity edema Respiratory : fair bilateral air entry, no crackles, wheezes or rhonchi Gastrointestinal: soft, lax, Normal bowel sounds, Non tender Skin : Warm, Dry Neurological : Alert & oriented x3, No focal deficit Objective Data Active Medications Acetaminophen (Acetaminophen 325 Mg Tablet) 650 mg PO Q6H PRN PRN Reason: Pain, Mild (Pain Scale 1-3) Acetaminophen (Acetaminophen 325 Mg Tablet) 650 mg PO Q6H PRN PRN Reason: mild pain; fever Al Hydroxide/Mg Hydroxide (Magnesium Hydrox/Alum Hydrox 30 Ml Oral.Susp) 30 ml PO Q6H PRN PRN Reason: Heartburn/Nausea Atovaquone (Atovaquone 750 Mg/5 Ml Oral.Susp) 1,500 mg PO DAILY COUNTS INCLUDE 234 BEDS AT THE [facility] Last Admin: 04/21/22 10:30 Dose: 1,500 mg Documented By: KARTHIKEYAN Bictegravir/Emtricitabine/Tenofovir (Bictegrav/Emtricit/Tenofov Ala Tablet) 1 tab PO DAILY COUNTS INCLUDE 234 BEDS AT THE [facility] Last Admin: 04/21/22 10:30 Dose: 1 tab Documented By: KARTHIKEYAN Docusate Sodium (Docusate Sodium 100 Mg Capsule) 100 mg PO BID PRN PRN Reason: Constipation Enoxaparin Sodium (Enoxaparin Sodium 40 Mg/0.4 Ml Syringe) 40 mg SUBCUT Q24H COUNTS INCLUDE 234 BEDS AT THE [facility] Last Admin: 04/20/22 12:43 Dose: 40 mg Documented By: JACOBO Hydroxyzine HCl (Hydroxyzine Hcl 25 Mg Tablet) 25 mg PO Q6H PRN PRN Reason: Anxiety Levofloxacin (Levaquin) 750 mg in 150 mls @ 100 mls/hr IV Q24H COUNTS INCLUDE 234 BEDS AT THE [facility] Last Infusion: 04/20/22 16:31 Dose: 0 mls/hr Documented By: JACOBO Ibuprofen (Ibuprofen 600 Mg Tablet) 600 mg PO Q8H PRN PRN Reason: Pain, Mild (Pain Scale 1-3) Last Admin: 04/20/22 04:11 Dose: 600 mg Documented By: NATALIYA Magnesium Hydroxide (Milk Of Magnesia 30 Ml Oral.Susp) 30 ml PO DAILY PRN PRN Reason: Constipation Multi-Ingred Cream/Lotion/Oil/Oint (Mineral Oil/Petrolatum,White 106 Gm Tube) 1 appl TOPICAL TID COUNTS INCLUDE 234 BEDS AT THE [facility]; Protocol Last Admin: 04/21/22 10:40 Dose: Not Given Documented By: KARTHIKEYAN Non-Admin Reason: Patient Refused Nicotine Polacrilex (Nicotine Polacrilex 2 Mg Gum) 4 mg BUCCAL Q2H PRN PRN Reason: Nicotine Cravings Olanzapine (Olanzapine 7.5 Mg Tablet) 15 mg PO BEDTIME COUNTS INCLUDE 234 BEDS AT THE [facility] Last Admin: 04/20/22 21:54 Dose: 15 mg Documented By: DONELL Ondansetron HCl (Ondansetron Hcl 4 Mg/2 Ml Vial) 4 mg IVPUSH Q8H PRN PRN Reason: Nausea and Vomiting Pharmacy Consult (Consult Rx Perform Med Rec) 1 each MISCELLANE ONCE PRN PRN Reason: Consult order Prednisone (Prednisone 10 Mg Tablet) 30 mg PO BID COUNTS INCLUDE 234 BEDS AT THE [facility] Last Admin: 04/21/22 10:30 Dose: 30 mg Documented By: KARTHIKEYAN Sodium Chloride (0.9 % Sodium Chloride Flush 3 Ml Syringe) 3 ml IVFLUSH QSHIFT COUNTS INCLUDE 234 BEDS AT THE [facility] Last Admin: 04/21/22 10:30 Dose: 3 ml Documented By: KARTHIKEYAN Trazodone HCl (Trazodone Hcl 50 Mg Tablet) 50 mg PO BEDTIME PRN PRN Reason: Insomnia Last Admin: 04/20/22 21:54 Dose: 50 mg Documented By: DONELL Labs CBC & Chem 7: 04/20/22 06:15 04/20/22 06:15 Assessment and Plan (1) Pneumonia due to COVID-19 virus: Status: Acute Plan 31 year old with HIV/AIDs with CD4 count <20 started on biktarvy yesterday and schizophrenia being admitted from psychiatry to medicine due to COVID-19 pneumonia with sepsis and new AIDS diagnosis. - Sepsis secondary to COVID-19 with concern of superimposed bacterial pneumonia Sepsis resolved Blood cultures pending DC fluids Continue Levaquin IV, can be changed to p.o. tomorrow and Mepron p.o. Continue prednisone 30 mg b.i.d. tapering dose Finished 3 days of remdesivir by ID Id suggested DC Bactrim for now Follow CBC -AIDS CD4 count <200, undetectable here Continue biktarvy ID input appreciated, - schizophrenia Being followed by Psychiatry team for transfer, concerns over safety at home Psychiatry team would like to keep the patient at the psych unit - pancytopenia Secondary to malnutrition, chronic HIV infection give supplement and advised to increase oral intake To follow CBC DVt prophylaxis- lovenox Full code Patient will need overnight hospital stay for pending bed availability at the psychiatry unit. Quality Stroke Does the patient have a stroke diagnosis?: No VTE Prior VTE?: No VTE Risk Level:: Medical - moderate - high VTE Device Contraindication: Treatment Not Indicated VTE Drug Contraindication: N/A - Med Ordered
--- NOTE | 2022-04-21 13:01 | HO.PM.IMPN ---
Subjective Subjective Date of Service: 04/20/22 Interval History: the patient was seen and evaluated this morning Sitting in his chair, feeling more comfortable No fever overnight No reported other overnight events. Systemic review: No fever, chills has generalized weakness No chest pain, palpitation Dyspnea resolved No abdominal pain, nausea or vomiting No urinary symptoms No any rash or wounds Physical Exam Vital Signs: Vital Signs: Last Vital Signs Temp 99.1 F 04/21/22 11:56 Pulse 110 H 04/21/22 11:56 Resp 20 04/21/22 11:56 BP 111/79 04/21/22 11:56 Pulse Ox 98 04/21/22 11:56 O2 Del Method 04/21/22 11:56 BMI result Body Mass Index 16.2 Const: Other: Constitutional : Alert, oriented, not in distress Neck : Normal inspection, Supple Cardiovascular : RRR, no JVP, no lower extremity edema Respiratory : fair bilateral air entry, no crackles, wheezes or rhonchi Gastrointestinal: soft, lax, Normal bowel sounds, Non tender Skin : Warm, Dry Neurological : Alert & oriented x3, No focal deficit Objective Data Active Medications Acetaminophen (Acetaminophen 325 Mg Tablet) 650 mg PO Q6H PRN PRN Reason: Pain, Mild (Pain Scale 1-3) Acetaminophen (Acetaminophen 325 Mg Tablet) 650 mg PO Q6H PRN PRN Reason: mild pain; fever Al Hydroxide/Mg Hydroxide (Magnesium Hydrox/Alum Hydrox 30 Ml Oral.Susp) 30 ml PO Q6H PRN PRN Reason: Heartburn/Nausea Atovaquone (Atovaquone 750 Mg/5 Ml Oral.Susp) 1,500 mg PO DAILY [facility] TO [facility] Last Admin: 04/21/22 10:30 Dose: 1,500 mg Documented By: KARTHIKEYAN Bictegravir/Emtricitabine/Tenofovir (Bictegrav/Emtricit/Tenofov Ala Tablet) 1 tab PO DAILY [facility] Last Admin: 04/21/22 10:30 Dose: 1 tab Documented By: KARTHIKEYAN Docusate Sodium (Docusate Sodium 100 Mg Capsule) 100 mg PO BID PRN PRN Reason: Constipation Enoxaparin Sodium (Enoxaparin Sodium 40 Mg/0.4 Ml Syringe) 40 mg SUBCUT Q24H [facility] Last Admin: 04/20/22 12:43 Dose: 40 mg Documented By: JACOBO Hydroxyzine HCl (Hydroxyzine Hcl 25 Mg Tablet) 25 mg PO Q6H PRN PRN Reason: Anxiety Levofloxacin (Levaquin) 750 mg in 150 mls @ 100 mls/hr IV Q24H [facility] Stop: 04/21/22 20:00 Last Infusion: 04/20/22 16:31 Dose: 0 mls/hr Documented By: JACOBO Ibuprofen (Ibuprofen 600 Mg Tablet) 600 mg PO Q8H PRN PRN Reason: Pain, Mild (Pain Scale 1-3) Last Admin: 04/20/22 04:11 Dose: 600 mg Documented By: NATALIYA Levofloxacin (Levofloxacin 750 Mg Tablet) 750 mg PO Q24H [facility] Stop: 04/27/22 14:01 Magnesium Hydroxide (Milk Of Magnesia 30 Ml Oral.Susp) 30 ml PO DAILY PRN PRN Reason: Constipation Multi-Ingred Cream/Lotion/Oil/Oint (Mineral Oil/Petrolatum,White 106 Gm Tube) 1 appl TOPICAL TID [facility]; Protocol Last Admin: 04/21/22 10:40 Dose: Not Given Documented By: KARTHIKEYAN Non-Admin Reason: Patient Refused Nicotine Polacrilex (Nicotine Polacrilex 2 Mg Gum) 4 mg BUCCAL Q2H PRN PRN Reason: Nicotine Cravings Olanzapine (Olanzapine 7.5 Mg Tablet) 15 mg PO BEDTIME [facility] Last Admin: 04/20/22 21:54 Dose: 15 mg Documented By: ANTAILYN Ondansetron HCl (Ondansetron Hcl 4 Mg/2 Ml Vial) 4 mg IVPUSH Q8H PRN PRN Reason: Nausea and Vomiting Pharmacy Consult (Consult Rx Perform Med Rec) 1 each MISCELLANE ONCE PRN PRN Reason: Consult order Prednisone (Prednisone 10 Mg Tablet) 30 mg PO BID [facility] Last Admin: 04/21/22 10:30 Dose: 30 mg Documented By: KARTHIKEYAN Sodium Chloride (0.9 % Sodium Chloride Flush 3 Ml Syringe) 3 ml IVFLUSH QSHIFT [facility] Last Admin: 04/21/22 10:30 Dose: 3 ml Documented By: KARTHIKEYAN Trazodone HCl (Trazodone Hcl 50 Mg Tablet) 50 mg PO BEDTIME PRN PRN Reason: Insomnia Last Admin: 09/23/22 21:54 Dose: 50 mg Documented By: DONELL Labs CBC & Chem 7: 04/20/22 06:15 04/20/22 06:15 Assessment and Plan (1) Pneumonia due to COVID-19 virus: Status: Acute (2) Chronic schizophrenia: Status: Acute (3) Pancytopenia: Status: Acute Plan 31 year old with HIV/AIDs with CD4 count <20 started on biktarvy yesterday and schizophrenia being admitted from psychiatry to medicine due to COVID-19 pneumonia with sepsis and new AIDS diagnosis. - Sepsis secondary to COVID-19 with concern of superimposed bacterial pneumonia Sepsis resolved Blood cultures pending DC fluids Continue Levaquin IV, can be changed to p.o. tomorrow and Mepron p.o. Continue prednisone 30 mg b.i.d. tapering dose Finished 3 days of remdesivir by ID Id suggested DC Bactrim for now Follow CBC -AIDS CD4 count <200, undetectable here Continue biktarvy ID input appreciated, - schizophrenia Being followed by Psychiatry team for transfer, concerns over safety at home Psychiatry team would like to keep the patient at the psych unit - pancytopenia Secondary to malnutrition, chronic HIV infection give supplement and advised to increase oral intake To follow CBC DVt prophylaxis- lovenox Full code Patient will need overnight hospital stay for pending bed availability at the psychiatry unit. Quality Stroke Does the patient have a stroke diagnosis?: No VTE Prior VTE?: No VTE Risk Level:: Medical - moderate - high VTE Device Contraindication: Treatment Not Indicated VTE Drug Contraindication: N/A - Med Ordered
[2022-04-21] MEDS: Enoxaparin Sodium 40 MG/0.4 ML SYRINGE SUBCUT (14:18)
[2022-04-21] MEDS: levoFLOXacin/D5W 750 MG/150 ML PIGGYBACK 100 MG IV (14:19)
[2022-04-21 15:37] VITALS: BP 177/84; PULSE 71; RESP 17; TEMP 37.1; O2SAT 98
[2022-04-21] MEDS: Mineral Oil/Petrolatum,White 106 GM Tube 1 APPL TOPICAL ×2 (16:05→20:24)
[2022-04-21 19:16] VITALS: BP 133/79; PULSE 92; RESP 18; TEMP 36.8; O2SAT 92
[2022-04-21] MEDS: traZODone HCL 50 MG TABLET PO (20:24)
[2022-04-21] MEDS: OLANZapine 7.5 MG TABLET 15 MG PO (20:24)
[2022-04-21 23:21] VITALS: BP 126/79; PULSE 90; RESP 18; TEMP 36.3; O2SAT 98
[2022-04-22 06:19] LABS: Hematocrit 31.1 % (42.0-52.0); Hemoglobin 10.2 g/dl (14.0-18.0); Mean Corpuscular HGB Conc 32.8 g/dl (31.0-36.0); Mean Corpuscular Hemoglobin 30.2 pg (27.0-33.0); Mean Platelet Volume 11.8 fL (9.4-12.4); Platelet Count 179 X10*3/uL (160-400); Red Blood Count 3.38 X10*6/uL (4.60-5.80); Red Cell Distribution Width 14.8 % (11.0-16.0); White Blood Count 6.4 X10*3/uL (4.8-10.8)
[2022-04-22 06:45] LABS: Band Neutrophils Percent 3 % (3-5); Burr Cells 1+ (0-2) /OIF; Lymphocytes Absolute Manual 0.7 X10*3/uL (1.2-4.9); Lymphocytes Percent Manual 11 % (20-40); Macrocytosis 1+ (5-14) /OIF; Monocytes Percent Manual 15 % (2-11); Neutrophils Absolute Manual 4.7 X10*3/uL (2.0-8.3); Neutrophils Percent Manual 71 % (45-73); Nucleated Red Blood Cells 3 /100WBC (0-0); Ovalocytes 1+ (5-14) /OIF; Platelet Estimate SLIGHTLY DECREASED (NORMAL); Platelet Morphology Comment NORMAL; Polychromasia 1+ (0-2) /OIF; RBC Morphology NOTED; Schistocytes 1+ (0-2) /OIF; Smudge Cells PRESENT
[2022-04-22 08:00] VITALS: BP 144/92; PULSE 83; RESP 18; TEMP 37.1; O2SAT 98
[2022-04-22] MEDS: Atovaquone 750 MG/5 ML ORAL.SUSP 1500 MG PO (09:05)
[2022-04-22] MEDS: 0.9 % Sodium Chloride Flush 3 ML SYRINGE IVFLUSH ×3 (09:05→20:24)
[2022-04-22] MEDS: predniSONE 10 MG TABLET 30 MG PO ×2 (09:06→20:24)
[2022-04-22] MEDS: Bictegrav/Emtricit/Tenofov Ala TABLET 1 TAB PO (09:06)
[2022-04-22] MEDS: Mineral Oil/Petrolatum,White 106 GM Tube 1 APPL TOPICAL ×3 (09:07→20:24)
--- NOTE | 2022-04-22 10:44 | P.PNIM_ITS ---
Subjective Subjective Date of Service: 04/22/22 Interval History: the patient was seen and evaluated this morning Lying in his bed, asking if he can be discharged to a usp house as he is waiting for to psych bed No fever or difficulty breathing overnight No reported other overnight events. Systemic review: No fever, chills has generalized weakness No chest pain, palpitation Dyspnea resolved No abdominal pain, nausea or vomiting No urinary symptoms No any rash or wounds Physical Exam Vital Signs: Vital Signs: Last Vital Signs Temp 98.8 F 04/22/22 08:00 Pulse 83 04/22/22 08:00 Resp 18 04/22/22 08:00 BP 144/92 H 04/22/22 08:00 Pulse Ox 98 04/22/22 08:00 O2 Del Method 04/22/22 08:00 BMI result Body Mass Index 16.2 Const: Other: Constitutional : Alert, oriented, not in distress Neck : Normal inspection, Supple Cardiovascular : RRR, no JVP, no lower extremity edema Respiratory : fair bilateral air entry, no crackles, wheezes or rhonchi Gastrointestinal: soft, lax, Normal bowel sounds, Non tender Skin : Warm, Dry Neurological : Alert & oriented x3, No focal deficit Objective Data Active Medications Acetaminophen (Acetaminophen 325 Mg Tablet) 650 mg PO Q6H PRN PRN Reason: Pain, Mild (Pain Scale 1-3) Acetaminophen (Acetaminophen 325 Mg Tablet) 650 mg PO Q6H PRN PRN Reason: mild pain; fever Al Hydroxide/Mg Hydroxide (Magnesium Hydrox/Alum Hydrox 30 Ml Oral.Susp) 30 ml PO Q6H PRN PRN Reason: Heartburn/Nausea Atovaquone (Atovaquone 750 Mg/5 Ml Oral.Susp) 1,500 mg PO DAILY [facility] Last Admin: 04/22/22 09:05 Dose: 1,500 mg Documented By: RODRICK Bictegravir/Emtricitabine/Tenofovir (Bictegrav/Emtricit/Tenofov Ala Tablet) 1 tab PO DAILY [facility] Last Admin: 04/22/22 09:06 Dose: 1 tab Documented By: RODRICK Docusate Sodium (Docusate Sodium 100 Mg Capsule) 100 mg PO BID PRN PRN Reason: Constipation Enoxaparin Sodium (Enoxaparin Sodium 40 Mg/0.4 Ml Syringe) 40 mg SUBCUT Q24H [facility] Last Admin: 04/21/22 14:18 Dose: 40 mg Documented By: KARTHIKEYAN Hydroxyzine HCl (Hydroxyzine Hcl 25 Mg Tablet) 25 mg PO Q6H PRN PRN Reason: Anxiety Ibuprofen (Ibuprofen 600 Mg Tablet) 600 mg PO Q8H PRN PRN Reason: Pain, Mild (Pain Scale 1-3) Last Admin: 04/20/22 04:11 Dose: 600 mg Documented By: NATALIYA Levofloxacin (Levofloxacin 750 Mg Tablet) 750 mg PO Q24H [facility] Stop: 04/27/22 14:01 Magnesium Hydroxide (Milk Of Magnesia 30 Ml Oral.Susp) 30 ml PO DAILY PRN PRN Reason: Constipation Multi-Ingred Cream/Lotion/Oil/Oint (Mineral Oil/Petrolatum,White 106 Gm Tube) 1 appl TOPICAL TID [facility]; Protocol Last Admin: 04/22/22 09:07 Dose: 1 appl Documented By: RODRICK Nicotine Polacrilex (Nicotine Polacrilex 2 Mg Gum) 4 mg BUCCAL Q2H PRN PRN Reason: Nicotine Cravings Olanzapine (Olanzapine 7.5 Mg Tablet) 15 mg PO BEDTIME [facility] Last Admin: 04/21/22 20:24 Dose: 15 mg Documented By: DONELL Ondansetron HCl (Ondansetron Hcl 4 Mg/2 Ml Vial) 4 mg IVPUSH Q8H PRN PRN Reason: Nausea and Vomiting Pharmacy Consult (Consult Rx Perform Med Rec) 1 each MISCELLANE ONCE PRN PRN Reason: Consult order Prednisone (Prednisone 10 Mg Tablet) 30 mg PO BID [facility] Last Admin: 04/22/22 09:06 Dose: 30 mg Documented By: RODRICK Sodium Chloride (0.9 % Sodium Chloride Flush 3 Ml Syringe) 3 ml IVFLUSH QSHIFT [facility] Last Admin: 04/22/22 09:05 Dose: 3 ml Documented By: RODRICK Trazodone HCl (Trazodone Hcl 50 Mg Tablet) 50 mg PO BEDTIME PRN PRN Reason: Insomnia Last Admin: 04/21/22 20:24 Dose: 50 mg Documented By: DONELL Labs CBC & Chem 7: 04/22/22 05:46 04/20/22 06:15 Labs: Laboratory Results - last 24 hr 04/22/22 05:46 MCV 92.0 MCH 30.2 MCHC 32.8 RDW 14.8 Plt Count 179 D MPV 11.8 Immature Gran % (Auto) Cancelled Neut % (Auto) Cancelled Lymph % (Auto) Cancelled Mclean % (Auto) Cancelled Eos % (Auto) Cancelled Baso % (Auto) Cancelled Lymph # (Auto) Cancelled Mclean # (Auto) Cancelled Eos # (Auto) Cancelled Baso # (Auto) Cancelled Abs Immat Gran (auto) Cancelled Absolute Neuts (auto) Cancelled Absolute Nucleated RBC 0.000 Nucleated RBC % (auto) 0.0 Neutrophils % (Manual) 71 Band Neutrophils % 3 Lymphocytes % (Manual) 11 L Monocytes % (Manual) 15 H Abs Neuts (Manual) 4.7 Lymphocytes # (Manual) 0.7 L Monocytes # (Manual) 1.0 Nucleated RBCs 3 H Smudge Cells PRESENT Platelet Estimate SLIGHTLY DECREASED Plt Morphology Comment NORMAL RBC Morphology NOTED Polychromasia 1+ (0-2) Macrocytosis 1+ (5-14) Ovalocytes 1+ (5-14) Ave Cells 1+ (0-2) Schistocytes 1+ (0-2) Assessment and Plan (1) Pneumonia due to COVID-19 virus: Status: Acute (2) AIDS: Status: Acute (3) Pancytopenia: Status: Acute Plan 31 year old with HIV/AIDs with CD4 count <20 started on biktarvy yesterday and schizophrenia being admitted from psychiatry to medicine due to COVID-19 pneumonia with sepsis and new AIDS diagnosis. - Sepsis secondary to COVID-19 with concern of superimposed bacterial pneumonia Sepsis resolved Blood cultures negative DC fluids Continue Levaquin and Mepron p.o. Continue prednisone 30 mg b.i.d. tapering dose Finished 3 days of remdesivir by ID Id suggested DC Bactrim for now Follow CBC -AIDS CD4 count <200, undetectable here Continue biktarvy ID input appreciated, - schizophrenia Being followed by Psychiatry team for transfer, concerns over safety at home Psychiatry team would like to keep the patient at the psych unit - pancytopenia Improved Secondary to malnutrition, chronic HIV infection give supplement and advised to increase oral intake To follow CBC DVt prophylaxis- lovenox Full code Patient will need overnight hospital stay for pending bed availability at the psychiatry unit. Quality Stroke Does the patient have a stroke diagnosis?: No VTE Prior VTE?: No VTE Risk Level:: Medical - moderate - high VTE Device Contraindication: Treatment Not Indicated VTE Drug Contraindication: N/A - Med Ordered
[2022-04-22 12:00] VITALS: BP 112/59; PULSE 93; RESP 18; TEMP 36.8; O2SAT 95
[2022-04-22] MEDS: levoFLOXacin 750 MG TABLET PO (13:41)
[2022-04-22 15:18] VITALS: BP 130/78; PULSE 89; RESP 18; TEMP 37.1; O2SAT 98
[2022-04-22 19:26] VITALS: BP 129/79; PULSE 78; RESP 17; TEMP 36.4; O2SAT 98
[2022-04-22] MEDS: OLANZapine 7.5 MG TABLET 15 MG PO (20:24)
[2022-04-23] VITALS: BP 113/78; PULSE 111; RESP 20; TEMP 36; O2SAT 99
[2022-04-23 03:49] VITALS: BP 140/86; PULSE 87; RESP 20; TEMP 36.6; O2SAT 98
[2022-04-23 07:48] VITALS: BP 137/85; PULSE 80; RESP 18; TEMP 36.9; O2SAT 100
[2022-04-23] MEDS: Atovaquone 750 MG/5 ML ORAL.SUSP 1500 MG PO (10:11)
[2022-04-23] MEDS: predniSONE 10 MG TABLET 30 MG PO (10:12)
[2022-04-23] MEDS: Bictegrav/Emtricit/Tenofov Ala TABLET 1 TAB PO (10:12)
[2022-04-23] MEDS: 0.9 % Sodium Chloride Flush 3 ML SYRINGE IVFLUSH (10:12)
[2022-04-23 11:45] VITALS: BP 137/84; PULSE 92; RESP 16; TEMP 36.6; O2SAT 100
[2022-04-23 12:09] LABS: COVID-19 Test Positive (Negative)
--- NOTE | 2022-04-23 13:03 | MHC.CM.PN ---
Patient has been medically cleared for dc to [address] today.
--- NOTE | 2022-04-23 13:39 | PM.DS ---
DS: Providers Provider Date of Service: 04/23/22 Date of admission: 04/18/22 14:04 Date of discharge: 04/23/22 Primary care physician: Arline Glover MD Consults: 04/18/22 12:39 Consult to Infectious Diseases Routine Consulting Provider: Tatianna Neville Reason for consultation: covid19 pneumonia, sepsis, aids Has provider been notified: Yes 04/18/22 15:11 Consult to Infectious Diseases Routine Consulting Provider: Tatianna Neville Reason for consultation: HIV labs + Has provider been notified: No 04/20/22 11:02 Consult to Care Team Routine Comment: Reason for consultation: Transfer from psych floor, medical clear, any need for psych admission ? DS: Diagnosis Discharge Diagnosis (1) Pneumonia due to COVID-19 virus: Status: Resolved (2) COVID-19: Status: Resolved DS: Summary Hospital Course Hospital Course: Admission note HPI 31 year old with HIV/AIDs with CD4 count <20 started on biktarvy yesterday and schizophrenia admitted to psychiatry for paranoia who is complaining of productive cough with green sputum production, chills, and fevers. The patient has tested positive for HIV/AIDs since admission with pancytopenia. Reports significant weight loss over jailyn last 10 months and general malaise. Has been seen by ID and started on bitarvy as above as well as bactrim for prophylaxis. He tested positive for COVID-19 and has received first dose of remdesivir. WBC 2.7, PLT 109. LDH 347. CXR with subtle hazy opacity in RUL more pronounced than previous study, underlying infiltrates cannot be excluded. Pt febrile 101.5 and tachycardic to 118. No hypotension or hypoxia. Pt to be admitted for COVID-19 pneumonia with sepsis with AIDs CD4 count <20. Denies rigors, n/v/diarrhea, sore throat, shortness of breath, palpitations, or chest pain. Hospital course The patient was admitted for treatment of sepsis secondary to COVID-19 infection with concern of superimposed bacterial pneumonia as he was transferred from the psych unit. Treated with IV antibiotics a of Levaquin with addition of prone per ID recommendations given the patient aids status isn't significantly low CD4. Received total of 3 days of remdesivir. Id suggested holding Bactrim for now and starting prednisone 30 mg b.i.d. with a plan for tapering over the next 3 weeks. The patient was recently started on Biktarvy for HIV infection treatment. Noted to have pancytopenia believed to be secondary to moderate malnutrition and chronic HIV infection. Improved during the hospital stay. Cbc to be repeated on the future to check for response after treatment for underlying problems. Psychiatry team re-evaluated the patient and recommended to admit him back the psych unit given that he is still disorganized. To continue Levaquin to finish total of 10 days by 04/27/2022 Continue Mepron indefinitely Tapering dose of steroids on weekly basis, 30 mg b.i.d. then 15 mg b.i.d. then 7.5 mg b.i.d., dose decrease every . To follow-up with Dr. Neville from infectious disease as outpatient. Time Spent with Patient Time attestation: Total time spent providing and/or coordinating discharge services: Discharge coordination time: Greater than 30 minutes Quality: Safe Use of Opioids Does Pt have an Active Cancer Diagnosis on the Problem List?: No Quality: Stroke Does the patient have a stroke diagnosis?: No Physical Exam Vital Signs: Vital Signs: Last Vital Signs Temp 98.0 F 04/20/22 11:07 Pulse 95 04/20/22 11:07 Resp 19 04/20/22 11:07 BP 112/79 04/20/22 11:07 Pulse Ox 99 04/20/22 11:07 O2 Del Method 04/20/22 11:07 BMI result Body Mass Index 16.2 Const: Other: Constitutional : Alert, oriented, not in distress Neck : Normal inspection, Supple Cardiovascular : RRR, no JVP, no lower extremity edema Respiratory : Fair bilateral air entry, no crackles,l rhonchi Gastrointestinal: soft, lax, Normal bowel sounds, Non tender Skin : Warm, Dry Neurological : Alert & oriented x3, No focal deficit , CN 2-12 within normal DS: Data Data Completed and Pending Labs on day of discharge: Laboratory Results - last 24 hr 04/20/22 04/20/22 04/20/22 06:15 06:15 06:15 WBC 4.5 L RBC 3.38 L Hgb 10.0 L Hct 30.9 L MCV 91.4 MCH 29.6 MCHC 32.4 RDW 14.6 Plt Count 128 L D MPV 11.7 Absolute Nucleated RBC 0.000 Nucleated RBC % (auto) 0.0 Sodium 141 Potassium 4.8 Chloride 112 H Carbon Dioxide 20 L Anion Gap 14 BUN 20 H Creatinine 0.82 Estim Creat Clear Calc 85.3 Estimated GFR > 60 Random Glucose 202 H Calcium 9.0 Lactate Dehydrogenase 267 C-Reactive Protein 0.96 H Discharge Plan Discharge Patient Disposition: Xfer Psychiatric Hosp Referrals: Arline Glover MD [Primary Care Provider] - 1 Week Discharge Medications: Discontinued sulfamethoxazole-trimethoprim 800-160 mg Tablet 1 tab PO DAILY Qty: 0 0RF No Action atovaquone [Mepron] 750 mg/5 mL Suspension 1,500 mg PO DAILY 30 Days Qty: 300 0RF Biktarvy 50-200-25 mg Tablet 1 tab PO DAILY 30 Days Qty: 30 0RF olanzapine 15 mg tablet 15 mg PO BEDTIME 30 Days Qty: 30 0RF prednisone 10 mg Tablet See Rx Instructions .ROUTE .COMPLEX 14 Days Qty: 35 0RF Rx Instructions: take 3 tabs for 7 more days, then take 2 tabs for 7 days and then stop taking clotrimazole 1 % Cream 1 appl topical BID 14 Days Qty: 15 0RF Protocol: Apply to: Apply to: both feet multivitamin [Daily-Dougie] Tablet 1 tab PO DAILY 30 Days Qty: 30 0RF levofloxacin 750 mg tablet 750 mg PO DAILY 2 Days Qty: 2 0RF Dermacerin Cream 1 appl topical TID PRN (Reason: dry skin) Qty: 454 0RF Protocol: Apply to: Apply to: face Discharge Orders: Discharge Order (Routine); Ordered 04/23/22 Ordered By: Iraida Harley Diet: Advance to usual diet Activity on Discharge: As tolerated Stand Alone Forms: Patient Portal Discharge page Discharge Date/Time: 04/23/22 14:24
== END 2022-04-23 14:24 | DRG 892 ==
PROVIDERS: Internal Medicine; Admitting Provider Physician Assistant; PCP Internal Medicine; Visit Provider Student in an Organized Health Care Education/Training Program
DX: A41.89 Other specified sepsis (principal); B20 Human immunodeficiency virus [HIV] disease; J12.82 Pneumonia due to coronavirus disease 2019; E44.0 Moderate protein-calorie malnutrition; U07.1 COVID-19; R64 Cachexia; J15.9 Unspecified bacterial pneumonia; Z68.1 Body mass index [BMI] 19.9 or less, adult; E53.8 Deficiency of other specified B group vitamins; F20.9 Schizophrenia, unspecified; Z87.891 Personal history of nicotine dependence; Z91.013 Allergy to seafood; Z88.0 Allergy status to penicillin; Z88.1 Allergy status to other antibiotic agents; Z79.899 Other long term (current) drug therapy
CPT/HCPCS: 36415; 80048; 80053; 81001; 83605; 83615; 85007; 85025; 85027; 85730; 86140; 87635; J0248; J1650; J1956

== ENCOUNTER 2022-04-23 15:17 | Inpatient (IN) | payer OTHER, SELFPAY ==
--- NOTE | 2022-04-23 15:58 | MHC.CLN ---
NUTRITION CONSULT TO ADD SOY ENSURE. ADDED ENSURE TID. PROVIDES 1050 KCALS, 60 G PROTEIN. ENSURE ENLIVE AND ENSURE PLUS HIGH PROTEIN ARE SOY BASED PRODUCTS.
[2022-04-23 17:20] VITALS: BP 135/92; PULSE 104; TEMP 36.4
[2022-04-23] MEDS: levoFLOXacin 750 MG TABLET PO (18:05)
[2022-04-23] MEDS: OLANZapine 7.5 MG TABLET 15 MG PO (21:55)
[2022-04-23] MEDS: predniSONE 10 MG TABLET 30 MG PO (21:55)
[2022-04-23 23:37] VITALS: BMI 15.7
--- NOTE | 2022-04-24 00:57 | PC.ADMIT ---
A single, [place]isian speaking male aged 31 years was admitted to [facility] at 1430 following referral from [facility] and CARE Team. Pt was admitted to on 04/10/22, but was transferred to [facility] for pneumonia related to Covid on 04/18/22. Pt was transported to ED on 04/10 following police being called to family home because of psychosis, bizarre behavior, aggression and threats toward the family. Pt had agreed to start Zyprexa upon initial admission but still presents as delusional, disorganized. Pt has minimal insight regarding his mental health and HIV diagnosis. During admission assessment presented as flat, quiet and remained in bed. Pt was guarded and minimized symptoms. Pt denied anxiety, depression and pain. Pt denied experiencing AH/VH currently, but did admit he experiences this at times. Pt denies SI/HI and said has no urges or history of self harm. Pt denies cravings for Etoh or substances. Pt said he rarely drinks and when he does it is 1 or 2 drinks. Pt reports trying marijuana and cocaine in the past, but not liking the experience. Pt reports weight loss and appears very thin. Medical issues include positive HIV status. [id number] Safety Tool and initial treatment plan done, admission orders obtained. Pt is resting at this time in Group Room B in a hospital bed isolating from residential part of unit.
[2022-04-24 08:13] VITALS: BP 120/86; PULSE 74; TEMP 36.6
[2022-04-24] MEDS: Bictegrav/Emtricit/Tenofov Ala TABLET 1 TAB PO (09:27)
[2022-04-24] MEDS: predniSONE 10 MG TABLET 30 MG PO ×2 (09:27→19:21)
[2022-04-24] MEDS: Atovaquone 750 MG/5 ML ORAL.SUSP 1500 MG PO (09:27)
[2022-04-24 09:49] LABS: Hematocrit 36.4 % (42.0-52.0); Hemoglobin 11.8 g/dl (14.0-18.0); Mean Corpuscular HGB Conc 32.4 g/dl (31.0-36.0); Mean Corpuscular Hemoglobin 29.9 pg (27.0-33.0); Mean Corpuscular Volume 92.4 fL (80.0-98.0); Mean Platelet Volume 11.3 fL (9.4-12.4); NRBC Pct Auto 0.3 /100WBC (0.0-0.2); Platelet Count 233 X10*3/uL (160-400); Red Blood Count 3.94 X10*6/uL (4.60-5.80); Red Cell Distribution Width 16.5 % (11.0-16.0); White Blood Count 7.3 X10*3/uL (4.8-10.8)
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
[2022-04-24 11:07] LABS: Band Neutrophils Percent 6 % (3-5); Lymphocytes Absolute Manual 0.4 X10*3/uL (1.2-4.9); Lymphocytes Percent Manual 5 % (20-40); Monocytes Absolute Manual 1.3 X10*3/uL (0.1-1.2); Monocytes Percent Manual 18 % (2-11); Neutrophils Absolute Manual 5.6 X10*3/uL (2.0-8.3); Neutrophils Percent Manual 71 % (45-73)
[2022-04-24 11:09] LABS: Acanthocytes 1+ (0-2) /OIF; Large Platelet PRESENT; Ovalocytes 1+ (5-14) /OIF; Platelet Estimate NORMAL (NORMAL); Platelet Morphology Comment NOTED; Polychromasia 1+ (0-2) /OIF; RBC Morphology NOTED
--- NOTE | 2022-04-24 13:29 | MHC.CLN ---
RE: CONSULT PT IS MODERATELY MALNOURISHED SEE FULL CLINICAL NUTRITION ASSESSMENT DATED 04/19/22 FROM PREVIOUS MEDICAL ADMISSION PO INTAKE 100% X 4 MEALS DIET RX: REGULAR-APPROPRIATE PT RECEIVING ENSURE PLUS HIGH PROTEIN TID WITH MEALS SUPPLEMENT WILL PROVIDE 1050KCALS, 60GPROTEIN MONITOR PO INTAKE CLOSELY CONTINUE WEEKLY WEIGHTS
[2022-04-24 13:30] VITALS: BMI 16.0
[2022-04-24 17:45] VITALS: BP 121/84; PULSE 91; TEMP 37
[2022-04-24] MEDS: OLANZapine 7.5 MG TABLET 15 MG PO (19:22)
[2022-04-24] MEDS: levoFLOXacin 750 MG TABLET PO (19:22)
[2022-04-24] MEDS: guaiFENesin 100 MG/5 ML LIQUID PO (19:24)
[2022-04-25 08:50] VITALS: BP 140/85; PULSE 105; TEMP 36.5
[2022-04-25] MEDS: Atovaquone 750 MG/5 ML ORAL.SUSP 1500 MG PO (08:50)
[2022-04-25] MEDS: Bictegrav/Emtricit/Tenofov Ala TABLET 1 TAB PO (08:50)
[2022-04-25] MEDS: predniSONE 10 MG TABLET 30 MG PO ×2 (08:50→22:18)
[2022-04-25] MEDS: Multivitamin TABLET 1 TAB PO (13:01)
--- NOTE | 2022-04-25 17:06 | HO.PSYCHPN ---
Subjective Subjective Date of Service: 04/25/22 Reason For Visit: Psychosis Interim History: Patient actually smiling today, 1st time this automobile service writer has seen that. He said he is doing Pretty good. Patient feels medications are helpful and says he will continue them. Nursing staff reviewed his medication regimen with him and patient feels he will be able to follow it. He has a 3 day notice an which is due on Saturday and wants to discharge to a nursing home. Denies psychiatric symptoms. Says he does not mind being in the room by himself. Mental Status Exam Mental Status Exam Narrative: Pt is alert and oriented; behavior is cooperative, more friendly-seeming; patient is not in distress; lying under covers; disheveled, Cachectic; affect more expressive; eye contact appropriate; Speech is normal rate, volume and prosody and not pressured; no psychomotor retardation present; thought process more goal oriented; was not tangential; Thought content is on discharge, otherwise pertinent to relevant topics; denies any SI/HI; Patient appears internally preoccupied but does not seem to be marred by thought blocking. Patients insight and judgment are impaired but they have improved and are fair and adequate. Diagnostics Vital Signs (24Hr): Vital Signs - 24 hr 04/24/22 17:45 04/25/22 08:50 Temperature 98.6 F 97.7 F Pulse Rate 91 105 H Blood Pressure 121/84 140/85 H BMI result Body Mass Index 16.0 Labs Results: 04/24/22 09:28 Labs: Laboratory Results - last 48 hr 04/24/22 09:28 WBC 7.3 RBC 3.94 L Hgb 11.8 L Hct 36.4 L MCV 92.4 MCH 29.9 MCHC 32.4 RDW 16.5 H Plt Count 233 D MPV 11.3 Absolute Nucleated RBC 0.020 H Nucleated RBC % (auto) 0.3 H Neutrophils % (Manual) 71 Band Neutrophils % 6 H Lymphocytes % (Manual) 5 L Monocytes % (Manual) 18 H Abs Neuts (Manual) 5.6 Lymphocytes # (Manual) 0.4 L Monocytes # (Manual) 1.3 H Platelet Estimate NORMAL Large Platelets PRESENT Plt Morphology Comment NOTED RBC Morphology NOTED Polychromasia 1+ (0-2) Ovalocytes 1+ (5-14) Acanthocytes (Spur) 1+ (0-2) Medications Medications Current Medications Acetaminophen (Acetaminophen 325 Mg Tablet) 650 mg PO Q6H PRN PRN Reason: Pain, Mild (Pain Scale 1-3) Al Hydroxide/Mg Hydroxide (Magnesium Hydrox/Alum Hydrox 30 Ml Oral.Susp) 30 ml PO Q6H PRN PRN Reason: Heartburn/Nausea Atovaquone (Atovaquone 750 Mg/5 Ml Oral.Susp) 1,500 mg PO DAILY [facility] Last Admin: 04/25/22 08:50 Dose: 1,500 mg Bictegravir/Emtricitabine/Tenofovir (Bictegrav/Emtricit/Tenofov Ala Tablet) 1 tab PO DAILY [facility] Last Admin: 04/25/22 08:50 Dose: 1 tab Clotrimazole (Clotrimazole 1 % Cream 15 Gm Tube) 1 appl TOPICAL BID [facility]; Protocol Docusate Sodium (Docusate Sodium 100 Mg Capsule) 100 mg PO BID PRN PRN Reason: Constipation Guaifenesin (Guaifenesin 100 Mg/5 Ml Liquid) 5 ml PO Q6H PRN PRN Reason: Cough Last Admin: 04/24/22 19:24 Dose: 5 ml Ibuprofen (Ibuprofen 600 Mg Tablet) 600 mg PO Q8H PRN PRN Reason: Pain, Mild (Pain Scale 1-3) Levofloxacin (Levofloxacin 750 Mg Tablet) 750 mg PO Q24H [facility]INA Stop: 04/27/22 18:01 Last Admin: 04/24/22 19:22 Dose: 750 mg Magnesium Hydroxide (Milk Of Magnesia 30 Ml Oral.Susp) 30 ml PO DAILY PRN PRN Reason: Constipation Multi-Ingred Cream/Lotion/Oil/Oint (Mineral Oil/Petrolatum,White 106 Gm Tube) 1 appl TOPICAL TID PRN; Protocol PRN Reason: dry skin Multivitamins/Vitamin C (Multivitamin Tablet) 1 tab PO DAILY [facility] Last Admin: 04/25/22 13:01 Dose: 1 tab Nicotine Polacrilex (Nicotine Polacrilex 2 Mg Gum) 4 mg BUCCAL Q2H PRN PRN Reason: Nicotine Cravings Olanzapine (Olanzapine 7.5 Mg Tablet) 15 mg PO BEDTIME [facility] Last Admin: 04/24/22 19:22 Dose: 15 mg Prednisone (Prednisone 10 Mg Tablet) 30 mg PO BID [facility]; Taper Stop: 05/15/22 08:59 Last Admin: 04/25/22 08:50 Dose: 30 mg Trazodone HCl (Trazodone Hcl 50 Mg Tablet) 50 mg PO BEDTIME PRN PRN Reason: Insomnia Allergies Allergies Allergy/AdvReac Type Severity Reaction Status Date / Time amoxicillin [AMOXICILLIN] Allergy Intermediate HIVES Verified 01/13/22 01:51 clindamycin [CLINDAMYCIN] Allergy Mild RASH Verified 01/13/22 01:52 Penicillins [PENICILLINS] Allergy Unknown HIVES Verified 01/13/22 01:52 shellfish derived Allergy Hives Verified 06/15/20 18:21 shrimp Allergy Hives Verified 06/15/20 18:21 Assessment & Plan Assessment & Plan (1) Chronic schizophrenia: Status: Acute Code(s): F20.9 - Schizophrenia, unspecified (2) Pneumonia due to COVID-19 virus: Status: Acute Code(s): U07.1 - COVID-19; J12.82 - Pneumonia due to coronavirus disease 2019 (3) AIDS: Status: Acute Code(s): B20 - Human immunodeficiency virus [HIV] disease Plan Pt is a 31 yo male with schizophrenia, HIV/Aids, currently treated with abx for Pneumonia who is transferred back from hospital floor where he was treated for Covid+/Pneumonia/sepsis, now medically stabilized. -pt has paranoid delusional thinking, but he denies AVH, SI/HI; he says he knows he has HIV/aids and schizophrenia. ? -Pt denies having anger towards his family; he does not want to return home but says he wants to go to a nursing home.? -pt says he feels he'll be able to handle taking his medications regularly included Abx and Prednisone taper. 04/25 Patient had the brightest affect automobile service writer has seen since 1stadmission. Patient says he is feeling good. No questions and no complaints. Looking for to discharge on Saturday to a nursing home. Nursing staff reviewed his medication regimen with him and he feels he can handle it. Visual Basic .Net Developer discussed prednisone with Dr. Gilbert Michael who feels that patient is taper can be simplified and that he can be reduced to 30 mg. Daily starting tomorrow for 7 days and then taper from there. Patient is also a little more organized in his speech; no tangentiality PLAN: 3 day Covid + (recovering) q1:1 since in isolation Levoquin for pneumonia Prednisone 30mg daily for 7 days; then 15mg daily for 7 days, then dc HIV meds: Dr. Neville consulted and will continue to follow Zyprexa [facility] for psychosis and Team to organize dispo plan I spent minutes with the patient and/or on the patient floor today, greater than?50% of which was spent counseling/coordinating care. Patient educated on: diagnosis, medication risk/benefits and medical condition Informed Consent: understands and further education needed Reason for contiued inpatient stay Substantial Risk for: stable for discharge
[2022-04-25 18:00] VITALS: BP 170/95; PULSE 81; TEMP 36.4
[2022-04-25] MEDS: levoFLOXacin 750 MG TABLET PO (18:01)
[2022-04-25] MEDS: Ondansetron ODT 4 MG TAB.RAPDIS TRANSLINGU (21:33)
[2022-04-25] MEDS: Acetaminophen 325 MG TABLET 650 MG PO (22:18)
[2022-04-25] MEDS: OLANZapine 7.5 MG TABLET 15 MG PO (22:19)
[2022-04-26 08:30] VITALS: BP 134/88; PULSE 103; TEMP 36.7; O2SAT 100
[2022-04-26] MEDS: predniSONE 10 MG TABLET 30 MG PO ×2 (09:37→19:44)
[2022-04-26] MEDS: Multivitamin TABLET 1 TAB PO (09:38)
[2022-04-26] MEDS: Bictegrav/Emtricit/Tenofov Ala TABLET 1 TAB PO (09:38)
[2022-04-26] MEDS: Clotrimazole 1 % Cream 15 GM TUBE 1 APPL TOPICAL (09:39)
[2022-04-26] MEDS: Atovaquone 750 MG/5 ML ORAL.SUSP 1500 MG PO (09:39)
[2022-04-26] MEDS: Ibuprofen 600 MG TABLET PO ×2 (09:51→19:45)
--- NOTE | 2022-04-26 11:33 | HO.PSYCHPN ---
Subjective Subjective Date of Service: 04/26/22 Reason For Visit: Psychosis Interim History: late entry note for patient seen on 04/26 pt warm and friendly on approach; he says he's in a good mood and affect is noticeably brighter, calmer and with more expression. Grip Boss asked if he noticed a difference since first coming to the hospital and he said yes, he remembers he was not speaking clearly; he agreed zyprexa has helped and says he'll continue taking it. Grip Boss reviewed medications and pt understands, including prednisone taper. Pt says he would like his meds sent to [facility] on [address], rather than a pharmacy near [facility]. He explains he takes the bus regularly and this is easiest for him to get to. Pt denies any SI or HI or AVH. He says he is no longer mad at his family. He is looking forward to discharge Mental Status Exam Mental Status Exam Narrative: Pt is alert and oriented; behavior is cooperative, friendly, calm; patient is not in distress; lying in bed; unkempt, Cachectic; mood is good affect congruent, expressive; eye contact appropriate; Speech is normal rate, volume and prosody and not pressured; no psychomotor retardation present; thought process is goal oriented and linear; not tangential; Thought content is on discharge, otherwise pertinent to relevant topics; denies any SI/HI; Patient sometimes appears internally preoccupied but no thought blocking. Patients insight and judgment are impaired but are significantly improved and are fair and adequate. Diagnostics Vital Signs (24Hr): Vital Signs - 24 hr 04/26/22 18:00 04/27/22 06:00 Temperature 98.2 F Pulse Rate 80 114 H Respiratory Rate 18 Blood Pressure 118/64 149/103 H Pulse Oximetry 98 BMI result Body Mass Index 16.0 Labs Results: 04/24/22 09:28 Medications Medications Current Medications Acetaminophen (Acetaminophen 325 Mg Tablet) 650 mg PO Q6H PRN PRN Reason: Pain, Mild (Pain Scale 1-3) Last Admin: 04/25/22 22:18 Dose: 650 mg Al Hydroxide/Mg Hydroxide (Magnesium Hydrox/Alum Hydrox 30 Ml Oral.Susp) 30 ml PO Q6H PRN PRN Reason: Heartburn/Nausea Atovaquone (Atovaquone 750 Mg/5 Ml Oral.Susp) 1,500 mg PO DAILY [facility] Last Admin: 04/27/22 09:21 Dose: 1,500 mg Bictegravir/Emtricitabine/Tenofovir (Bictegrav/Emtricit/Tenofov Ala Tablet) 1 tab PO DAILY [facility] Last Admin: 04/27/22 09:21 Dose: 1 tab Clotrimazole (Clotrimazole 1 % Cream 15 Gm Tube) 1 appl TOPICAL BID [facility]; Protocol Last Admin: 04/27/22 09:23 Dose: 1 appl Docusate Sodium (Docusate Sodium 100 Mg Capsule) 100 mg PO BID PRN PRN Reason: Constipation Guaifenesin (Guaifenesin 100 Mg/5 Ml Liquid) 5 ml PO Q6H PRN PRN Reason: Cough Last Admin: 04/24/22 19:24 Dose: 5 ml Ibuprofen (Ibuprofen 600 Mg Tablet) 600 mg PO Q8H PRN PRN Reason: Pain, Mild (Pain Scale 1-3) Last Admin: 04/26/22 19:45 Dose: 600 mg Levofloxacin (Levofloxacin 750 Mg Tablet) 750 mg PO Q24H [facility] Stop: 04/27/22 18:01 Last Admin: 04/26/22 19:44 Dose: 750 mg Magnesium Hydroxide (Milk Of Magnesia 30 Ml Oral.Susp) 30 ml PO DAILY PRN PRN Reason: Constipation Multi-Ingred Cream/Lotion/Oil/Oint (Mineral Oil/Petrolatum,White 106 Gm Tube) 1 appl TOPICAL TID PRN; Protocol PRN Reason: dry skin Multivitamins/Vitamin C (Multivitamin Tablet) 1 tab PO DAILY [facility] Last Admin: 04/27/22 09:21 Dose: 1 tab Nicotine Polacrilex (Nicotine Polacrilex 2 Mg Gum) 4 mg BUCCAL Q2H PRN PRN Reason: Nicotine Cravings Olanzapine (Olanzapine 7.5 Mg Tablet) 15 mg PO BEDTIME [facility] Last Admin: 04/26/22 19:44 Dose: 15 mg Ondansetron HCl (Ondansetron Odt 4 Mg Tab.Rapdis) 4 mg TRANSLINGU Q8H PRN PRN Reason: Nausea Last Admin: 04/25/22 21:33 Dose: 4 mg Prednisone (Prednisone 10 Mg Tablet) 30 mg PO BID [facility]; Taper Stop: 05/17/22 08:59 Last Admin: 04/27/22 09:21 Dose: 30 mg Trazodone HCl (Trazodone Hcl 50 Mg Tablet) 50 mg PO BEDTIME PRN PRN Reason: Insomnia Allergies Allergies Allergy/AdvReac Type Severity Reaction Status Date / Time amoxicillin [AMOXICILLIN] Allergy Intermediate HIVES Verified 01/13/22 01:51 clindamycin [CLINDAMYCIN] Allergy Mild RASH Verified 01/13/22 01:52 Penicillins [PENICILLINS] Allergy Unknown HIVES Verified 01/13/22 01:52 shellfish derived Allergy Hives Verified 06/15/20 18:21 shrimp Allergy Hives Verified 06/15/20 18:21 Assessment & Plan Assessment & Plan (1) Chronic schizophrenia: Status: Inactive Code(s): F20.9 - Schizophrenia, unspecified (2) Pneumonia due to COVID-19 virus: Status: Resolved Code(s): U07.1 - COVID-19; J12.82 - Pneumonia due to coronavirus disease 2019 (3) AIDS: Status: Inactive Code(s): B20 - Human immunodeficiency virus [HIV] disease Plan Pt is a 31 yo male with schizophrenia, HIV/Aids, currently treated with abx for Pneumonia who is transferred back from hospital floor where he was treated for Covid+/Pneumonia/sepsis, now medically stabilized. -pt has paranoid delusional thinking, but he denies AVH, SI/HI; he says he knows he has HIV/aids and schizophrenia. ? -Pt denies having anger towards his family; he does not want to return home but says he wants to go to a group home.? -pt says he feels he'll be able to handle taking his medications regularly included Abx and Prednisone taper. 04/25 Patient had the brightest affect commercial real estate underwriter has seen since 1stadmission. Patient says he is feeling good. No questions and no complaints. Looking for to discharge on Saturday to a group home. Nursing staff reviewed his medication regimen with him and he feels he can handle it. Grip Boss discussed prednisone with Dr. Gilbert Michael who feels that patient is taper can be simplified and that he can be reduced to 30 mg. Daily starting tomorrow for 7 days and then taper from there. Patient is also a little more organized in his speech; no tangentiality 04/26 remains in good mood; no si/hi/avh. He is no longer angry at family members; he has no plans to see them. Pt is clearly more organized and affect is significantly more naturally expressive. Pt understands he has schizophrenia, feels zyprexa has helped and says he'll continue to take it. He understands he has HIV/Aids and understands med regimen and says he'll continue to take it and will follow up with Dr. Neville. He understands his med regimen which both commercial real estate underwriter and nurse have gone over with patient and agree he knows how to take his meds. Pt has a 3 day notice due on Saturday and he wants to go, planning to go to [facility]. Given patients chronic illness and hx with substance abuse, it's likely that he will again decompensate at some point. However he is currently not in imminent risk for harm to self or others and does not rise to level of involuntary commitment. His request for discharge honored. PLAN: 3 day: dc on 04/27 Covid + (recovering) q1:1 since in isolation Levoquin for pneumonia Prednisone 30mg daily for 7 days; then 20mg daily for 7 days, then dc HIV meds: Dr. Neville consulted and will continue to follow Zyprexa [facility] for psychosis SW and Team to organize dispo plan I spent minutes with the patient and/or on the patient floor today, greater than?50% of which was spent counseling/coordinating care. Patient educated on: diagnosis, medication risk/benefits and medical condition Informed Consent: understands Reason for contiued inpatient stay Substantial Risk for: stable for discharge
[2022-04-26 18:00] VITALS: BP 118/64; PULSE 80; TEMP 36.8; O2SAT 98
[2022-04-26] MEDS: levoFLOXacin 750 MG TABLET PO (19:44)
[2022-04-26] MEDS: OLANZapine 7.5 MG TABLET 15 MG PO (19:44)
[2022-04-27 06:00] VITALS: BP 149/103; PULSE 114; RESP 18
--- NOTE | 2022-04-27 07:09 | P.DS_ITS ---
DS: Providers Provider Date of Service: 04/27/22 Date of admission: 04/23/22 15:17 Date of discharge: 04/27/22 Primary care physician: Arline Glover MD Attending physician on admission: Farhan Delgado Attending physician on discharge: Farhan Delgado DS: Diagnosis Discharge Diagnosis (1) Chronic schizophrenia: Status: Inactive (2) Pneumonia due to COVID-19 virus: Status: Resolved (3) AIDS: Status: Inactive DS: Medications Discharge Medications Home Medications: Previous Rx's Medication Instructions Recorded atovaquone 750 mg/5 mL oral 1,500 mg (10 mL) PO DAILY 30 days 04/27/22 suspension (Mepron) #300 mL bictegravir 50 mg-emtricitabine 1 tab PO DAILY 30 days #30 tabs 04/27/22 200 mg-tenofovir alafenam 25 mg tablet (Biktarvy) clotrimazole 1 % topical cream 1 appl topical BID 14 days #15 04/27/22 grams levofloxacin 750 mg tablet 750 mg PO DAILY 2 days #2 tabs 04/27/22 multivitamin (Daily-Dougie tablet) 1 tab PO DAILY 30 days #30 tabs 04/27/22 olanzapine 15 mg tablet 15 mg PO BEDTIME 30 days #30 tabs 04/27/22 prednisone 10 mg tablet See Rx Instructions .Route 04/27/22 .COMPLEX 14 days #35 tabs white petrolatum-mineral oil 1 appl topical TID PRN dry skin 04/27/22 topical cream (Dermacerin topical #454 grams cream) Mental Status Exam Mental Status Exam Narrative: Pt is alert and oriented; behavior is cooperative, friendly, calm; patient is not in distress; lying under covers using Iphone; unkempt, Cachectic; mood is good affect congruent, expressive; eye contact appropriate; Speech is normal rate, volume and prosody and not pressured; no psychomotor retardation present; thought process goal oriented and linear; not tangential; Thought content is on discharge, otherwise pertinent to relevant topics; denies any SI/HI; If Patient is internally preoccupied, it is not evident; he no has thought blocking. Patients insight and judgment are impaired but they have improved and are fair and adequate. Data Data Completed and Pending Completed studies during hospitalization [Text1]: 04/24/22 09:28 WBC 7.3 RBC 3.94 L Hgb 11.8 L Hct 36.4 L MCV 92.4 MCH 29.9 MCHC 32.4 RDW 16.5 H Plt Count 233 D MPV 11.3 Absolute Nucleated RBC 0.020 H Nucleated RBC % (auto) 0.3 H Neutrophils % (Manual) 71 Band Neutrophils % 6 H Lymphocytes % (Manual) 5 L Monocytes % (Manual) 18 H Abs Neuts (Manual) 5.6 Lymphocytes # (Manual) 0.4 L Monocytes # (Manual) 1.3 H Platelet Estimate NORMAL Large Platelets PRESENT Plt Morphology Comment NOTED RBC Morphology NOTED Polychromasia 1+ (0-2) Ovalocytes 1+ (5-14) Acanthocytes (Spur) 1+ (0-2) DS: Summary Hospital Course Hospital Course: HPI: Pt is a 31 yo male with schizophrenia, HIV/Aids, currently treated with abx for Pneumonia who is transferred back from hospital floor where he was treated for Covid+/Pneumonia/sepsis, now medically stabilized. -pt has paranoid delusional thinking, but he denies AVH, SI/HI; he says he knows he has HIV/aids and schizophrenia. ? -Pt denies having anger towards his family; he does not want to return home but says he wants to go to a long term.? -pt says he feels he'll be able to handle taking his medications regularly included Abx and Prednisone taper. Hospital course: During previous admission, before being transferred to medical floor for sepsis 2/2 Covid/pneumonia, Patient was difficult to engage with, having some angry feelings towards his family and having made homicidal threats, which led to this admission. Patient was a limited historian, dishevelled and cachectic, weighing only about 96 lbs. Patient has minimal insight; has some bizarre and paranoid delusions.? He was diagnosed with HIV/aids. Patient agreed to start on Zyprexa which initially did not seem to do much for him and he remained isolated, flat affect and difficult with which to engage. Patient as mentioned above, was transferred to medical floor for sepsis and once stabilized return to the unit. While on the medical floor he continued taking Zyprexa, and On return Patient's affect was brighter and he was with improved insight and much more able to engage in conversation. back on M5 04/25 Patient had the brightest affect administrative underwriter has seen since 1stadmission.? Patient says he is feeling good.? No questions and no complaints.? Looking for to discharge on Saturday to a long term.? Nursing staff reviewed his medication regimen with him and he feels he can handle it.? Dub Room Engineer discussed prednisone with Dr. Gilbert Michael who feels that patient is taper can be simplified and that he can be reduced to 30 mg.? Daily starting tomorrow for 7 days and then taper from there. Patient is also a little more organized in his speech; no tangentiality 04/26 remains in good mood; no si/hi/avh. He is no longer angry at family members; he has no plans to see them. Pt is clearly more organized and affect is significantly more naturally expressive. Pt understands he has schizophrenia, feels zyprexa has helped and says he'll continue to take it. He understands he has HIV/Aids and understands med regimen and says he'll continue to take it and will follow up with Dr. Neville. Patient nearly completed Antibiotics for pneumonia but will continue to take prednisone taper over the next 2 weeks. He understands his med regimen which both administrative underwriter and nurse have gone over with jayant ent and agree he knows how to take his meds. Pt has a 3 day notice due on Saturday and he wants to go, planning to go to [facility]. Given patients chronic illness and hx with substance abuse, it's likely that he will again decompensate at some point. However he is currently not in imminent risk for harm to self or others and does not rise to level of involuntary commitment. His request for discharge honored. Time spent discussing smoking cessation with patient: 3 to 10 minutes Status at Discharge Functional status at discharge: independent ambulation Overall status at discharge: patient is back to baseline Time Spent with Patient Time attestation: Total time spent providing and/or coordinating discharge services: Time spent: Less than 30 minutes Discharge Plan Discharge Anticipated Discharge Date/Time: 04/27/22 14:46 Patient Disposition: Group Home Discharge Diagnosis: Schizophrenia Referrals: Anita Darling [Other] - 04/30/22 11:00 am (Initial diagnostic evaluation for therapy and psychiatry services Patient also has [facility]SP referral that had been placed and not utilized prior to admission. Patient must attend appointment in order to receive medication management services. Appointment is in person at [facility].) [facility] [Other] - 04/27/22 3:00 pm (Referral for Group Home Placement Patient needs to self-present at 3:00 pm to secure long term.) Dr. Gregoria Neville [Other] - 05/02/22 11:00 am (Follow-up discharge appointment with Infectious Disease at [facility] ) Arline Glover MD [Primary Care Provider] - 1 Week (Office closed on Fridays. Pt to call PCP Office for Follow-Up Appt.) Discharge Medications: New atovaquone [Mepron] 750 mg/5 mL Suspension 1,500 mg PO DAILY 30 Days Qty: 300 0RF Biktarvy 50-200-25 mg Tablet 1 tab PO DAILY 30 Days Qty: 30 0RF olanzapine 15 mg tablet 15 mg PO BEDTIME 30 Days Qty: 30 0RF prednisone 10 mg Tablet See Rx Instructions .ROUTE .COMPLEX 14 Days Qty: 35 0RF Rx Instructions: take 3 tabs for 7 more days, then take 2 tabs for 7 days and then stop taking clotrimazole 1 % Cream 1 appl topical BID 14 Days Qty: 15 0RF Protocol: Apply to: Apply to: both feet multivitamin [Daily-Dougie] Tablet 1 tab PO DAILY 30 Days Qty: 30 0RF Continued levofloxacin 750 mg tablet 750 mg PO DAILY 2 Days Qty: 2 0RF Changed Dermacerin Cream 1 appl topical TID PRN (Reason: dry skin) Qty: 454 0RF Protocol: Apply to: Apply to: face Discontinued acetaminophen 325 mg Tablet 650 mg PO Q6H PRN (Reason: mild pain; fever) Qty: 0 0RF olanzapine 7.5 mg Tablet 15 mg PO BEDTIME Qty: 0 0RF magnesium hydroxide [Milk of Magnesia] 400 mg/5 mL Suspension 30 ml PO DAILY PRN (Reason: Constipation) Qty: 0 0RF ibuprofen 600 mg Tablet 600 mg PO Q8H PRN (Reason: Pain, Mild (Pain Scale 1-3)) Qty: 0 0RF MAG-AL 200-200 mg/5 mL Suspension 30 ml PO Q6H PRN (Reason: Heartburn/Nausea) Qty: 0 0RF Biktarvy 50-200-25 mg Tablet 1 tab PO DAILY Qty: 0 0RF atovaquone [Mepron] 750 mg/5 mL Suspension 1,500 mg PO DAILY 30 Days Qty: 300 0RF prednisone 10 mg tablet See Taper PO BID Qty: 74 0RF Taper: Prednisone 30 mg 2 times a day for 7 Days and 0 Hour 15 mg 2 times a day for 7 Days and 0 Hour 7.5 mg 2 times a day for 7 Days and 0 Hour Discharge Orders: Discharge Order (Routine); Ordered 04/27/22 Ordered By: Farhan Delgado Diet: Regular diet Activity on Discharge: As tolerated Stand Alone Forms: Patient Portal Discharge page, Community Support Care Plan Goals: Maintain mood and safe behaviors Take medications as prescribed Continue to pursue sobriety Practice coping skills Continue with outpatient providers and reach out to them as needed Health Concerns: Mood stability and behaviors Sobriety HIV Plan of Treatment: Follow up with your PCP, Dr. Neville and psychiatric provider and other outpatient providers regarding above concerns Take medications as prescribed Assessment: Risk assessment at time of discharge:? Patient was interviewed prior to discharge and found to be fully oriented and without any SI or HI. Patient has i nsight and demonstrates good judgment in terms of wanting to pursue treatment. Patient is not in imminent risk of harm to self or others and has a safety plan that includes presenting to the closest ER or calling 911 if feeling unsafe.? Patient has been observed closely by nursing and unit staff throughout admission; patient has not engaged in any behaviors that suggest dangerousness to self or others and has demonstrated appropriate behaviors and impulse control Discharge Date/Time: 04/27/22 13:02
[2022-04-27] MEDS: Bictegrav/Emtricit/Tenofov Ala TABLET 1 TAB PO (09:21)
[2022-04-27] MEDS: Atovaquone 750 MG/5 ML ORAL.SUSP 1500 MG PO (09:21)
[2022-04-27] MEDS: Multivitamin TABLET 1 TAB PO (09:21)
[2022-04-27] MEDS: predniSONE 10 MG TABLET 30 MG PO (09:21)
[2022-04-27] MEDS: Clotrimazole 1 % Cream 15 GM TUBE 1 APPL TOPICAL (09:23)
[2022-04-27] MEDS: Naloxone HCl Nasal TAKE HOME 4 MG SPRAY NOSTRILALT (10:22)
--- NOTE | 2022-04-27 13:28 | P.PNPSI_ITS ---
Subjective Subjective Date of Service: 04/27/22 Reason For Visit: Psychosis Interim History: Stepan reports feeling improved, prepared for discharge. He had filed a three day notice which expires today. Plan reviewed with pt, medications reviewed. Pt with no questions at this time. Discussed with pt should sx exacerbate to call and or return for evaluation for assistance. He verbalized understanding of this as an option. Denies SI, HI. No symptoms of psychosis, ramon. Review of Systems Acute medical concerns: No Medical Review of Systems: unchanged Mental Status Exam Mental Status Exam Patient Appearance: Appropriate Patient Orientation: Person, Place, Time and Situation Level of Consciousness: Alert Patient Behavior: Appropriate, Talkative, Cooperative and Good Eye Contact Mood Description: Constricted Affect Description: Constricted Patient Cognition Impaired: No Ability to Follow Directions: Good Speech Pattern: Spontaneous Speech Memory Description: Intact Hallucinations: None Delusions: Not Present Thought Process: Intact Thought Content: positive for Intact Judgement: Good Diagnostics Vital Signs (24Hr): Vital Signs - 24 hr 04/26/22 18:00 04/27/22 06:00 Temperature 98.2 F Pulse Rate 80 114 H Respiratory Rate 18 Blood Pressure 118/64 149/103 H Pulse Oximetry 98 BMI result Body Mass Index 16.0 Labs Results: 04/24/22 09:28 Medications Allergies Allergies Allergy/AdvReac Type Severity Reaction Status Date / Time amoxicillin [AMOXICILLIN] Allergy Intermediate HIVES Verified 01/13/22 01:51 clindamycin [CLINDAMYCIN] Allergy Mild RASH Verified 01/13/22 01:52 Penicillins [PENICILLINS] Allergy Unknown HIVES Verified 01/13/22 01:52 shellfish derived Allergy Hives Verified 06/15/20 18:21 shrimp Allergy Hives Verified 06/15/20 18:21 Assessment & Plan Assessment & Plan (1) Chronic schizophrenia: Status: Inactive Code(s): F20.9 - Schizophrenia, unspecified (2) Pneumonia due to COVID-19 virus: Status: Resolved Code(s): U07.1 - COVID-19; J12.82 - Pneumonia due to coronavirus disease 2019 (3) AIDS: Status: Inactive Code(s): B20 - Human immunodeficiency virus [HIV] disease Plan Pt is a 31 yo male with schizophrenia, HIV/Aids, currently treated with abx for Pneumonia who is transferred back from hospital floor where he was treated for Covid+/Pneumonia/sepsis, now medically stabilized. -pt has paranoid delusional thinking, but he denies AVH, SI/HI; he says he knows he has HIV/aids and schizophrenia. ? -Pt denies having anger towards his family; he does not want to return home but says he wants to go to a correction.? -pt says he feels he'll be able to handle taking his medications regularly included Abx and Prednisone taper. 04/25 Patient had the brightest affect typewriter assembler has seen since 1stadmission. Patient says he is feeling good. No questions and no complaints. Looking for to discharge on Saturday to a correction. Nursing staff reviewed his medication christina men with him and he feels he can handle it. Interventional Radiology Tech discussed prednisone with Dr. Gilbert Michael who feels that patient is taper can be simplified and that he can be reduced to 30 mg. Daily starting tomorrow for 7 days and then taper from there. Patient is also a little more organized in his speech; no tangentiality 04/26 remains in good mood; no si/hi/avh. He is no longer angry at family members; he has no plans to see them. Pt is clearly more organized and affect is significantly more naturally expressive. Pt understands he has schizophrenia, feels zyprexa has helped and says he'll continue to take it. He understands he has HIV/Aids and understands med regimen and says he'll continue to take it and will follow up with Dr. Neville. He understands his med regimen which both typewriter assembler and nurse have gone over with patient and agree he knows how to take his meds. Pt has a 3 day notice due on Saturday and he wants to go, planning to go to [facility]. Given patients chronic illness and hx with substance abuse, it's likely that he will again decompensate at some point. However he is currently not in imminent risk for harm to self or others and does not rise to level of involuntary commitment. His request for discharge honored. 04/27/22. Discharge. Plan, medications reviewed. Pt verbalized understanding. PLAN: 3 day: dc on 04/27 Covid + (recovering) q1:1 since in isolation Levoquin for pneumonia Prednisone 30mg daily for 7 days; then 20mg daily for 7 days, then dc HIV meds: Dr. Neville consulted and will continue to follow [facility] and Team to organize dispo plan I spent minutes with the patient and/or on the patient floor today, greater than?50% of which was spent counseling/coordinating care. Patient educated on: medication risk/benefits and therapeutic strategies Informed Consent: understands Reason for contiued inpatient stay Substantial Risk for: stable for discharge
== END 2022-04-27 13:02 | disposition home or self-care (01) | DRG 750 ==
PROVIDERS: Admitting Provider Psychiatry & Neurology Psychiatry; PCP Internal Medicine; Visit Provider Psychiatry & Neurology Psychiatry
DX: F20.9 Schizophrenia, unspecified (principal); U07.1 COVID-19; B20 Human immunodeficiency virus [HIV] disease; F17.210 Nicotine dependence, cigarettes, uncomplicated; Z71.6 Tobacco abuse counseling; Z91.013 Allergy to seafood; Z88.0 Allergy status to penicillin; Z88.1 Allergy status to other antibiotic agents; Z79.899 Other long term (current) drug therapy
CPT/HCPCS: 36415; 85007; 85027

== ENCOUNTER 2022-04-28 23:36 | Emergency (ER) | payer MEDICAID, SELFPAY ==
--- NOTE | ~2022-04-28 | CT_ITS ---
EXAMINATION: CT HEAD WITHOUT CONTRAST CLINICAL INFORMATION: Headache COMPARISON: None TECHNIQUE: Contiguous axial imaging was performed from the skull base to vertex without intravenous administration of contrast. This CT examination was performed using dose optimization techniques as appropriate, variously including the following: *Automated exposure control *Adjustment of mA and/or kV according to patient size (this includes techniques or standardized protocols for targeted exams where dose is matched to indication/reason for exam; i.e. extremities or head) *Use of iterative reconstruction technique DLP: 683 mGy-cm FINDINGS: There is no evidence of acute intracranial hemorrhage or territorial infarction. No abnormal mass effect or midline shift is seen. Clay to white matter differentiation is well preserved. No extra-axial fluid collections are identified. No hydrocephalus. No significant volume loss. There is no abnormal attenuation within the brain parenchyma. No acute osseous or soft tissue abnormality. Diffuse mucoperiosteal thickening throughout the paranasal sinuses. Small left mastoid air cell effusion. Right mastoid air cells are clear. CT/CT head/brain wo IV con IMPRESSION: No acute intracranial pathology.
--- NOTE | ~2022-04-28 | CT_ITS ---
EXAMINATION: CT CHEST WITHOUT CONTRAST CLINICAL INFORMATION: Cough and fever COMPARISON: None TECHNIQUE: Multidetector volumetric CT imaging of the chest was done. Axial MIP volume rendering provided. Sagittal and coronal reformatted images were obtained. This CT examination was performed using dose optimization techniques as appropriate, variously including the following: *Automated exposure control *Adjustment of mA and/or kV according to patient size (this includes techniques or standardized protocols for targeted exams where dose is matched to indication/reason for exam; i.e. extremities or head) *Use of iterative reconstruction technique DLP: 161 mGy-cm FINDINGS: LUNGS: Diffuse bilateral patchy and hazy airspace opacities demonstrating a peripheral predominance, with asymmetrically worse involvement of the right lung. There is diffuse mild bronchial wall thickening. Secretions present within the distal trachea and right mainstem bronchus. Smooth intralobular septal thickening present bilaterally, though more pronounced in the right lung, and areas showing greater degrees of associated alveolitis. Mild emphysema. MEDIASTINUM: The mediastinum is normal. CORONARY ARTERY CALCIFICATION: None visualized on this study. PLEURA: There is no pleural effusion. No pleural mass or thickening. AXILLA: No lymphadenopathy. UPPER ABDOMEN: Unremarkable. OSSEOUS STRUCTURES: Unremarkable. CT/CT chest wo IV con IMPRESSION: * Diffuse bilateral airspace disease compatible with atypical pneumonitis. Associated mild interstitial edema present. * Mild emphysema, unexpected given the patient's relative youth.
[2022-04-28 23:42] VITALS: BP 121/76; BP 132/64; PULSE 116; PULSE 124; RESP 16; TEMP 37.5; O2SAT 96; BMI 31.9
[2022-04-28 23:54] VITALS: BP 121/76; PULSE 124; RESP 20; TEMP 37.5; O2SAT 97
--- NOTE | 2022-04-29 00:08 | ECG_ITS ---
Test Reason : SIPSIS Blood Pressure : / mmHG Vent. Rate : 121 BPM Atrial Rate : 121 BPM P-R Int : 120 ms QRS Dur : 070 ms QT Int : 298 ms P-R-T Axes : -21 087 052 degrees QTc Int : 423 ms Sinus tachycardia Abnormal ECG When compared with ECG of 10-APR-2022 13:00, Sinus rhythm has replaced Junctional rhythm Vent. rate has increased BY 42 BPM Referred By: Trina Bermudez Electronically Signed By:AVEL SELLERS
--- NOTE | 2022-04-29 00:16 | ED_ITS ---
HPI - Weakness General Chief complaint: Weakness Stated complaint: Bilateral weakness Time Seen by Provider: 04/28/22 23:51 Source: patient Mode of arrival: EMS History of Present Illness HPI Narrative: 31-year-old male with history of AIDS brought in by EMS for complaint of bilateral weakness in the legs and patient stating that he urinated on himself because he was too weak to get to the bathroom. When asked if he is taking any of his medications he shakes his head no. Patient states he is not taking any medications for his HIV. Patient reports that he has had chills with nausea and diarrhea. Related Data Previous Rx's Medication Instructions Recorded atovaquone 750 mg/5 mL oral 1,500 mg (10 mL) PO DAILY 30 days 04/27/22 suspension (Mepron) #300 mL bictegravir 50 mg-emtricitabine 1 tab PO DAILY 30 days #30 tabs 04/27/22 200 mg-tenofovir alafenam 25 mg tablet (Biktarvy) clotrimazole 1 % topical cream 1 appl topical BID 14 days #15 04/27/22 grams levofloxacin 750 mg tablet 750 mg PO DAILY 2 days #2 tabs 04/27/22 multivitamin (Daily-Dougie tablet) 1 tab PO DAILY 30 days #30 tabs 04/27/22 olanzapine 15 mg tablet 15 mg PO BEDTIME 30 days #30 tabs 04/27/22 prednisone 10 mg tablet See Rx Instructions .Route 04/27/22 .COMPLEX 14 days #35 tabs white petrolatum-mineral oil 1 appl topical TID PRN dry skin 04/27/22 topical cream (Dermacerin topical #454 grams cream) Allergies Allergy/AdvReac Type Severity Reaction Status Date / Time amoxicillin [AMOXICILLIN] Allergy Intermediate HIVES Verified 01/13/22 01:51 clindamycin [CLINDAMYCIN] Allergy Mild RASH Verified 01/13/22 01:52 Penicillins [PENICILLINS] Allergy Unknown HIVES Verified 01/13/22 01:52 shellfish derived Allergy Hives Verified 06/15/20 18:21 shrimp Allergy Hives Verified 06/15/20 18:21 Review of Systems Review of Systems: Pertinent positives and negatives as stated in HPI 10 point review of systems is otherwise negative. PMFSH Past Medical History Source: nursing notes reviewed Medical History AIDS B12 deficiency Chronic schizophrenia Pancytopenia Positive laboratory testing for human immunodeficiency virus Surgical History History of orchiectomy Family History Family History Mother HIV (human immunodeficiency virus infection) Father HIV (human immunodeficiency virus infection) Social History Social History Household Members: None Housing: Homeless Do you presently have visiting nurse or other home services: No Alcohol intake: never Patient Tobacco Use Status: Current everyday Tobacco user Tobacco use type: Cigarette Cigarette Packs Per Day: 0.5 Cigarettes Per Day: 10.0 Years Smoked: 10 e-Cigarette/Vaping Use: Never Used Second Hand Smoke Exposure: Yes Use of substances other than those prescribed or required for medical reasons: Yes Substance Use Type: Marijuana Substance Use Frequency: Daily Advance Directives: No service: No Current occupational status: disabled Sexual orientation: Straight/Heterosexual Physical Exam Vital Signs: Vital Signs: Last Vital Signs Temp 100.2 F 04/29/22 02:27 Pulse 99 04/29/22 02:27 Resp 20 04/29/22 02:27 BP 92/62 04/29/22 01:30 Pulse Ox 95 04/29/22 02:27 O2 Del Method 04/29/22 02:27 BMI result Body Mass Index 31.9 VITAL SIGNS: Reviewed. GENERAL: chronically ill, cachectic, in moderate distress. HEAD: Normocephalic/atraumatic EYES: PERRLA, EOMI EARS: Ext canals without abnormality, TMs non-bulging and non-erythematous NOSE: Nares patent bilateral OROPHARYNX: no oral lesions noted, oral thrush is noted intraoral erythema noted, lips are red NECK: Supple, no adenopathy LUNGS: decreased breath sounds with tachypnea, coarse rhonchi noted throughout SpO2<97> CARDIOVASCULAR: Regular rate and rhythm without noted murmurs, no JVD or lower extremity edema. ABDOMEN: Soft, non-tender, non-distended with bowel sounds. No rigidity. No guarding. No palpable masses or hernias noted MUSCULOSKELETAL: No tenderness, deformities, or effusions noted on gross inspection. EXTREMITIES: No cyanosis, clubbing or edema. SKIN: Inspection of the skin reveals no rashes, tactile fever present NEUROLOGIC: Alert and oriented x 4. Strength and sensation to light touch were grossly intact x 4. Course Course Course Narrative: 31-year-old male with history and clinical presentation consistent with AIDS and suspect patient is febrile and and sepsis. Suspect overlying bacterial infection. Review of all investigations consistent with COVID pneumonia, moderate to severe dehydration. MDM - Weakness Lab Data Result diagrams: 04/29/22 00:30 04/29/22 00:29 Labs: Lab Results 04/29/22 04/29/22 04/29/22 Range/Units 00:29 00:29 00:29 WBC (4.8-10.8) X10*3/uL RBC (4.60-5.80) X10*6/uL Hgb (14.0-18.0) g/dl Hct (42.0-52.0) % MCV (80.0-98.0) fL MCH (27.0-33.0) pg MCHC (31.0-36.0) g/dl RDW (11.0-16.0) % Plt Count (160-400) X10*3/uL MPV (9.4-12.4) fL Immature Gran % (Auto) (0.0-0.4) % Neut % (Auto) (45-73) % Lymph % (Auto) (20-40) % [place] % (Auto) (2-11) % Eos % (Auto) (0-4) % Baso % (Auto) (0-2) % Lymph # (Auto) (1.2-4.9) X10*3/uL [place] # (Auto) (0.1-1.2) X10*3/uL Eos # (Auto) (0.0-0.4) X10*3/uL Baso # (Auto) (0.0-0.2) X10*3/uL Abs Immat Gran (auto) (0.00-0.03) X10*3/uL Absolute Neuts (auto) (2.0-8.3) x10*3/uL Absolute Nucleated RBC (0.0-0.012) X10*3/uL Nucleated RBC % (auto) (0.0-0.2) /100WBC PT (10.0-13.1) SEC INR (0.9-1.1) Sodium 136 (135-145) mmol/L Potassium 4.2 (3.3-5.1) mmol/L Chloride 99 (96-108) mmol/L Carbon Dioxide 26 (22-29) mmol/L Anion Gap 15 (12-20) BUN 21 H (9-16) mg/dL Creatinine 0.70 (0.5-1.4) mg/dL Estim Creat Clear Calc 161.9 Estimated GFR > 60 Random Glucose 90 D (60-115) mg/dL Lactic Acid 1.5 (0.5-2.0) mmol/L Calcium 8.7 (8.4-10.2) mg/dL Total Bilirubin 0.5 (0.0-1.0) mg/dL AST 52 H (5-37) U/L ALT 39 (0-40) U/L Alkaline Phosphatase 84 D (39-117) U/L Lactate Dehydrogenase 354 H (118-273) U/L Total Protein 6.4 L (6.5-8.0) g/dL Albumin 2.9 L (3.5-5.0) g/dL Procalcitonin ng/mL Urine Color Urine Appearance Urine pH (5.0-9.0) Ur Specific [place] (1.005-1.025) Urine Protein (Neg-Trace) mg/dL Urine Glucose (UA) (Negative) mg/dL Urine Ketones (Negative) mg/dL Urine Blood (Negative) Urine Nitrite (Negative) Ur Leukocyte Esterase (Negative) COVID-19 (LUCIO) Positive A (Negative) COVID-19 Clin Com See Note 04/29/22 04/29/22 04/29/22 Range/Units 00:29 00:30 00:47 WBC 6.4 (4.8-10.8) X10*3/uL RBC 3.30 L (4.60-5.80) X10*6/uL Hgb 10.3 L (14.0-18.0) g/dl Hct 32.0 L (42.0-52.0) % MCV 97.0 (80.0-98.0) fL MCH 31.2 (27.0-33.0) pg MCHC 32.2 (31.0-36.0) g/dl RDW 20.0 H (11.0-16.0) % Plt Count 164 D (160-400) X10*3/uL MPV 11.1 (9.4-12.4) fL Immature Gran % (Auto) 10.1 H (0.0-0.4) % Neut % (Auto) 68.2 (45-73) % Lymph % (Auto) 5.5 L (20-40) % [place] % (Auto) 10.1 (2-11) % Eos % (Auto) 5.8 H (0-4) % Baso % (Auto) 0.3 (0-2) % Lymph # (Auto) 0.4 L (1.2-4.9) X10*3/uL [place] # (Auto) 0.7 (0.1-1.2) X10*3/uL Eos # (Auto) 0.4 (0.0-0.4) X10*3/uL Baso # (Auto) 0.0 (0.0-0.2) X10*3/uL Abs Immat Gran (auto) 0.65 H (0.00-0.03) X10*3/uL Absolute Neuts (auto) 4.4 (2.0-8.3) x10*3/uL Absolute Nucleated RBC 0.000 (0.0-0.012) X10*3/uL Nucleated RBC % (auto) 0.0 (0.0-0.2) /100WBC PT 11.9 (10.0-13.1) SEC INR 1.0 (0.9-1.1) Sodium (135-145) mmol/L Potassium (3.3-5.1) mmol/L Chloride (96-108) mmol/L Carbon Dioxide (22-29) mmol/L Anion Gap (12-20) BUN (9-16) mg/dL Creatinine (0.5-1.4) mg/dL Estim Creat Clear Calc Estimated GFR Random Glucose (60-115) mg/dL Lactic Acid (0.5-2.0) mmol/L Calcium (8.4-10.2) mg/dL Total Bilirubin (0.0-1.0) mg/dL AST (5-37) U/L ALT (0-40) U/L Alkaline Phosphatase (39-117) U/L Lactate Dehydrogenase (118-273) U/L Total Protein (6.5-8.0) g/dL Albumin (3.5-5.0) g/dL Procalcitonin 0.11 ng/mL Urine Color Urine Appearance Urine pH (5.0-9.0) Ur Specific [place] (1.005-1.025) Urine Protein (Neg-Trace) mg/dL Urine Glucose (UA) (Negative) mg/dL Urine Ketones (Negative) mg/dL Urine Blood (Negative) Urine Nitrite (Negative) Ur Leukocyte Esterase (Negative) COVID-19 (LUCIO) (Negative) COVID-19 Clin Com 04/29/22 Range/Units 00:47 WBC (4.8-10.8) X10*3/uL RBC (4.60-5.80) X10*6/uL Hgb (14.0-18.0) g/dl Hct (42.0-52.0) % MCV (80.0-98.0) fL MCH (27.0-33.0) pg MCHC (31.0-36.0) g/dl RDW (11.0-16.0) % Plt Count (160-400) X10*3/uL MPV (9.4-12.4) fL Immature Gran % (Auto) (0.0-0.4) % Neut % (Auto) (45-73) % Lymph % (Auto) (20-40) % [place] % (Auto) (2-11) % Eos % (Auto) (0-4) % Baso % (Auto) (0-2) % Lymph # (Auto) (1.2-4.9) X10*3/uL [place] # (Auto) (0.1-1.2) X10*3/uL Eos # (Auto) (0.0-0.4) X10*3/uL Baso # (Auto) (0.0-0.2) X10*3/uL Abs Immat Gran (auto) (0.00-0.03) X10*3/uL Absolute Neuts (auto) (2.0-8.3) x10*3/uL Absolute Nucleated RBC (0.0-0.012) X10*3/uL Nucleated RBC % (auto) (0.0-0.2) /100WBC PT (10.0-13.1) SEC INR (0.9-1.1) Sodium (135-145) mmol/L Potassium (3.3-5.1) mmol/L Chloride (96-108) mmol/L Carbon Dioxide (22-29) mmol/L Anion Gap (12-20) BUN (9-16) mg/dL Creatinine (0.5-1.4) mg/dL Estim Creat Clear Calc Estimated GFR Random Glucose (60-115) mg/dL Lactic Acid (0.5-2.0) mmol/L Calcium (8.4-10.2) mg/dL Total Bilirubin (0.0-1.0) mg/dL AST (5-37) U/L ALT (0-40) U/L Alkaline Phosphatase (39-117) U/L Lactate Dehydrogenase (118-273) U/L Total Protein (6.5-8.0) g/dL Albumin (3.5-5.0) g/dL Procalcitonin ng/mL Urine Color Yellow Urine Appearance Clear Urine pH 8.5 (5.0-9.0) Ur Specific [place] 1.015 (1.005-1.025) Urine Protein Negative (Neg-Trace) mg/dL Urine Glucose (UA) Negative (Negative) mg/dL Urine Ketones Negative (Negative) mg/dL Urine Blood Negative (Negative) Urine Nitrite Negative (Negative) Ur Leukocyte Esterase Negative (Negative) COVID-19 (LUCIO) (Negative) COVID-19 Clin Com ECG Data Attestation: I personally reviewed and interpreted this ECG as follows: Prior ECG tracings: available for review Interpretation: Sinus tachycardia, HR - 1-1, no STEMI, SD /QRS /QTC are within normal limits. Critical Care Time Critical Care Time Critical Care Time: Yes Total Critical Care Time: 30 Attestation: I personally attest to this time spent taking care of the patient. Discharge Plan Discharge Clinical Impression: Pneumonia due to COVID-19 virus, Dehydration, Oral thrush, HIV (human immunode ficiency virus infection) Patient Disposition: Admitted As Inpatient Prescriptions: No Action atovaquone [Mepron] 750 mg/5 mL Suspension 1,500 mg PO DAILY 30 Days Qty: 300 0RF Biktarvy 50-200-25 mg Tablet 1 tab PO DAILY 30 Days Qty: 30 0RF olanzapine 15 mg tablet 15 mg PO BEDTIME 30 Days Qty: 30 0RF prednisone 10 mg Tablet See Rx Instructions .ROUTE .COMPLEX 14 Days Qty: 35 0RF Rx Instructions: take 3 tabs for 7 more days, then take 2 tabs for 7 days and then stop taking clotrimazole 1 % Cream 1 appl topical BID 14 Days Qty: 15 0RF Protocol: Apply to: Apply to: both feet multivitamin [Daily-Dougie] Tablet 1 tab PO DAILY 30 Days Qty: 30 0RF levofloxacin 750 mg tablet 750 mg PO DAILY 2 Days Qty: 2 0RF Dermacerin Cream 1 appl topical TID PRN (Reason: dry skin) Qty: 454 0RF Protocol: Apply to: Apply to: face
[2022-04-29] MEDS: cefEPime HCl 2 GM in 0.9 % Sodium Chloride 50 ML IV (00:35)
[2022-04-29 00:39] VITALS: TEMP 38.5
[2022-04-29 00:39] LABS: MANUAL DIFF FLAG NO
[2022-04-29] MEDS: 0.9 % Sodium Chloride 2,000 ML 999 ML IV (00:39)
[2022-04-29 00:42] VITALS: BP 116/75; PULSE 124; RESP 25; TEMP 38.5; O2SAT 97
--- NOTE | 2022-04-29 00:45 | PC.NURSE ---
Sepsis alert. Pt. on lunchroom monitor at this time. IV abx. Cefepime infusing at ths time. NS L bolus x2 infusing as well. COVID swab sent. Labs and blood cultures sent. Urine culture sent. Rectal temp. 101.3F (rectally) - will admin. 975mg Tylenol at this time.
[2022-04-29 00:46] LABS: Basophils Percent Auto 0.3 % (0-2); Eosinophils Absolute Auto 0.4 X10*3/uL (0.0-0.4); Eosinophils Percent Auto 5.8 % (0-4); Hemoglobin 10.3 g/dl (14.0-18.0); Imm Gran Abs Auto 0.65 X10*3/uL (0.00-0.03); Imm Gran Pct Auto 10.1 % (0.0-0.4); Lymphocytes Absolute Auto 0.4 X10*3/uL (1.2-4.9); Lymphocytes Percent Auto 5.5 % (20-40); Mean Corpuscular HGB Conc 32.2 g/dl (31.0-36.0); Mean Corpuscular Hemoglobin 31.2 pg (27.0-33.0); Mean Platelet Volume 11.1 fL (9.4-12.4); Monocytes Absolute Auto 0.7 X10*3/uL (0.1-1.2); Monocytes Percent Auto 10.1 % (2-11); Neutrophils Absolute Auto 4.4 x10*3/uL (2.0-8.3); Neutrophils Percent Auto 68.2 % (45-73); Platelet Count 164 X10*3/uL (160-400); SCAN SMEAR FLAG 1; White Blood Count 6.4 X10*3/uL (4.8-10.8)
[2022-04-29 00:55] LABS: COVID-19 Test Positive (Negative); IDNOW Serial# 16C4AD1C
[2022-04-29 00:56] LABS: Lactic Acid 1.5 mmol/L (0.5-2.0)
[2022-04-29] MEDS: Acetaminophen 325 MG TABLET 975 MG PO (00:57)
[2022-04-29 00:58] LABS: Appearance Urine Clear; Color Urine Yellow; Glucose Urine UA Negative (Negative); Leukocyte Esterase Urine Negative (Negative); Nitrite Urine Negative (Negative); PH 8.5 (5.0-9.0); Specific Gravity - Urine 1.015 (1.005-1.025); Urine Blood Negative (Negative); Urine Ketones Negative (Negative); Urine Protein Negative (Neg-Trace)
[2022-04-29 01:03] LABS: Prothrombin Time 11.9 SEC (10.0-13.1)
[2022-04-29 01:03] LABS: Alanine Aminotransferase 39 U/L (0-40); Albumin Level 2.9 g/dL (3.5-5.0); Alkaline Phosphatase 84 U/L (39-117); Anion Gap 15 (12-20); Aspartate Amino Transferase 52 U/L (5-37); Bilirubin Total 0.5 mg/dL (0.0-1.0); Blood Urea Nitrogen 21 mg/dL (9-16); Calcium 8.7 mg/dL (8.4-10.2); Carbon Dioxide 26 mmol/L (22-29); Chloride 99 mmol/L (96-108); Creatinine Clr Calc Pharmacy 161.9; Estimated Glomerular Filt Rate > 60; Glucose Random 90 mg/dL (60-115); Potassium 4.2 mmol/L (3.3-5.1); Sodium 136 mmol/L (135-145); Total Protein 6.4 g/dL (6.5-8.0)
[2022-04-29 01:30] VITALS: BP 92/62; PULSE 114; RESP 20; TEMP 38.3; O2SAT 95
[2022-04-29 01:30] LABS: Procalcitonin 0.11 ng/mL
[2022-04-29 02:27] VITALS: PULSE 99; RESP 20; TEMP 37.9; O2SAT 95
--- NOTE | 2022-04-29 02:28 | PC.NURSE ---
PATIENT WAS CHANGE INTO HOSPITAL ATTIRE BY THIS PCT .
[2022-04-29 02:29] LABS: Lactate Dehydrogenase 354 U/L (118-273)
[2022-04-29 02:46] LABS: Amphetamine Screen Urine Not Detected (Not Detect); Barbiturates, Urine Not Detected (Not Detect); Benzodiazepines Screen Urine Not Detected (Not Detect); Cannabinoid Screen Urine POSITIVE (Not Detect); Cocaine Screen Urine Not Detected (Not Detect); Fentanyl, urine Not Detected (Not Detect); Opiate Screen Urine Not Detected (Not Detect); Phencyclidine Screen Urine Not Detected (Not Detect)
[2022-04-29 05:16] VITALS: BP 108/70; PULSE 83; RESP 16; O2SAT 97
[2022-04-29 06:00] VITALS: BP 121/81; PULSE 97; RESP 16; TEMP 36.8; O2SAT 98
--- NOTE | 2022-04-29 08:40 | PC.NURSE ---
patient a/ox4 . given discharge paperwork . bus pass . clean pants and gown . went over discharge instructions as ordered by provider . patient had no questions at this time .
== END 2022-04-29 08:41 | disposition home or self-care (01) ==
PROVIDERS: Emergency Provider Student in an Organized Health Care Education/Training Program; PCP Internal Medicine
DX: U07.1 COVID-19 (principal); J12.82 Pneumonia due to coronavirus disease 2019; B37.0 Candidal stomatitis; R00.0 Tachycardia, unspecified; R51.9 Headache, unspecified; R53.1 Weakness; M54.6 Pain in thoracic spine; F17.210 Nicotine dependence, cigarettes, uncomplicated; Z21 Asymptomatic human immunodeficiency virus [HIV] infection status; Z71.6 Tobacco abuse counseling; Z79.899 Other long term (current) drug therapy
CPT/HCPCS: 36415; 70450; 71250; 80053; 80307; 81003; 83605; 83615; 84145; 85025; 85610; 87040; 87147; 87205; 87635; 93005; 96361; 96374; 99285; J0692